=== PATIENT | female | born 1950 | race Caucasian/White ===

== ENCOUNTER → 2024-02-28 07:20 | Outpatient (REF) | payer OTHER, SELFPAY | LOC: HWRAD 07:20 | PROVIDERS: ATTENDING PHYSICIAN Internal Medicine Hematology & Oncology; FAMILY PHYSICIAN Internal Medicine | DX: C48.2 Malignant neoplasm of peritoneum, unspecified (principal) | CPT/HCPCS: 71260; 74177; Q9967 ==

== ENCOUNTER 2024-03-21 13:55 | Emergency (ER) | payer OTHER, SELFPAY ==
[2024-03-21] VITALS (7 sets, daily range): BP systolic 104–136; BP diastolic 54–73; BMI 23.8
--- NOTE | 2024-03-21 15:17 | ED.GENMED ---
History of Present Illness
General
Chief Complaint: Breathing Problem
Source: patient
Time Seen by Provider: 03/21/24 14:54
Travel History
Have you had any contact with someone who has COVID-19?: No
Do you have any symptoms of coronavirus? Fever > 100 degrees, chills, cough, shortness of breath, sore throat, loss of taste or smell, muscle aches, or headache?: No
History of Present Illness
History of Present Illness:
3-year-old female presents to the emergency room complaining of shortness of breath particular with exertion, weakness, cough. Patient has history of primary peritoneal carcinoma. She has had debulking surgery and several rounds of chemo. Over
the past several weeks has been developing some abdominal distention. Over the past several days she has been experiencing a cough and shortness of breath. No fever. She took a COVID test today was negative. Patient was sent by her oncologist
for a ultrasound today. While going to ultrasound the patient's daughter noted that she was short of breath and coughing a lot and felt uncomfortable taking her home.
Past History
Past History
ED Past Medical History: HTN and Hypercholesterolemia
Social History
Tobacco: Non-smoker
Alcohol: Occasional
Drug: None
Personal:
Living: with family
Phy Exam
Physical Exam
Physical Exam:
General: Awake, Alert, Oriented X3. Appears quite thin, chronically ill
Vitals: Mildly tachycardic, afebrile
Head: Atraumatic
Eyes: Pupils equal, EOMI
Throat: Airway intact, no exudates
Neck: Trachea midline
Lungs: Clear and equal b/l
Heart: Regular rate, no murmurs
Abd: Soft, significant distention but no tenderness, No pulsatile mass
Neuro: Nonfocal
Skin: Warm, dry, no rash
Extremities: pulses equal b/l, no edema
Scores
Heart Failure Risk
Heart Failure Risk Score: Not Applicable
Course
Orders/Labs/Results
Orders:
Orders
03/21/24 15:18
0.9% Sodium Chloride 500 ml [Nss] 500 ml IV BOLUS
03/21/24 15:22
Complete Blood Count/With Diff Urgent
Comprehensive Metabolic Panel Urgent
Magnesium Urgent
Phos [Phosphorus] Urgent
03/21/24 15:24
Consult Interventional Radiology [IRAD CONSULT] Urgent
Consulting Provider: Brenden Goetz
Was physician already notified: Yes
Reason for Consult/Procedure: ascitis
Acknowledgement that appropriate orders are entered: Yes
03/21/24 15:49
Ondansetron Injectable [Zofran] 4 mg .ROUTE .STK-MED ONE
03/21/24 15:51
Ondansetron Injectable [Zofran] 4 mg IV NOW STA
03/21/24 16:56
Body Fluid Cell Count Urgent
What is the Body Fluid: ascites
Date Specimen was Collected: 03/21/24
Time Specimen was Collected: 16:50
Body Fluid Glucose Urgent
Fluid Source: Peritoneal (Ascites)
Date Specimen was Collected: 03/21/24
Time Specimen was Collected: 16:50
Body Fluid Protein Urgent
Fluid Source: Peritoneal (Ascites)
Date Specimen was Collected: 03/21/24
Time Specimen was Collected: 16:50
Fluid Culture with Gram Stain Urgent
MADDIE Source: Peritoneal Fluid
Specimen Description:
Date Specimen was Collected: 03/21/24
Time Specimen was Collected: 16:50
03/21/24 19:19
CefTRIAXone [Rocephin] 1,000 mg IV NOW STA
03/21/24 19:34
Heparin Pf [Heparin Lock Flush] 500 unit .ROUTE .STK-MED ONE
Abnormal Lab Results
03/21/24
15:22
WBC 12.4 H 10^3/uL
(4.8-10.8)
RBC 3.27 L 10^6/uL
(4.20-5.40)
Hgb 10.6 L g/dL
(12.0-16.0)
Hct 33.0 L %
(37.0-47.0)
MCV 100.9 H fL
(81.0-99.0)
MCH 32.4 H pg
(27.0-31.0)
MCHC 32.1 L g/dL
(33.0-37.0)
Absolute Neuts (auto) 10.8 H 10^3/uL
(1.4-6.5)
Absolute Lymphs (auto) 0.8 L 10^3/uL
(1.2-3.4)
Absolute Monos (auto) 0.7 H 10^3/uL
(0.1-0.6)
Neutrophils % 87.1 H %
(42.2-75.2)
Lymphocytes % 6.5 L %
(20.5-51.1)
Chloride 110 H mmol/L
(98-107)
BUN 20 H mg/dl
(7-17)
Glucose 127 H mg/dl
(70-99)
Total Protein 5.9 L g/dl
(6.3-8.2)
Albumin 3.3 L g/dl
(3.5-5.0)
03/21/24 15:22
03/21/24 15:22
Vital Signs
Initial and Last Documented VS:
Initial Vital Signs
Temp Pulse Resp BP Pulse Ox
98.4 F 107 22 136/72 98
03/21/24 13:56 03/21/24 13:56 03/21/24 13:56 03/21/24 13:56 03/21/24 13:56
Last Documented Vital Signs
Temp Pulse Resp BP Pulse Ox
99 F 97 19 132/63 92
03/21/24 19:34 03/21/24 18:15 03/21/24 17:07 03/21/24 19:34 03/21/24 18:15
MDM/Problems Addressed
Differential Diagnosis Includes:
Ascites, SBP, anemia, renal failure
MDM/Problems Addressed:
Ultrasound from this morning proved there was significant ascites. Interventional radiology was able to perform a paracentesis and removed 2 L of fluid. She felt much better after the procedure. Total white count of 625 but only 8% PMNs so that
is less than 250 to be concerned about SBP. Patient stable for discharge home
*Radiology
Radiology exam reviewed: radiology read reviewed
*Pulse Oximetry
Patient hypoxic: no
*Critical Care Note
Total Time (30-74mins, 75-104mins- exclusive of procedures): Not Applicable
ED Attending Note
-
Portions of this chart may have been created with voice recognition software.� Occasional wrong word or��sound alike� substitutions may have occurred due to the inherent limitations of voice recognition software.
Discharge Plan
Departure
Patient Disposition: Home (Routine Discharge)
Date of Disposition: 03/21/24
Time of Disposition: 19:29
Patient with high blood pressure during this ER visit?: Yes
Condition: Good
Discharge Problem:
Ascites, S/P abdominal paracentesis
Instructions: Fluid in the belly (ascites), Abdominal Paracentesis (DC)
Prescriptions:
No Action
nateglinide 120 MG tablet
120 mg PO TID
levothyroxine 100 MCG tablet
100 mcg PO DAILY
calcium carbonate 600 MG tablet
1,200 mg PO DAILY
cholecalciferol (vitamin D3) [Vitamin D3] 1,000 UNIT capsule
1,000 unit PO DAILY
amlodipine 5 mg Tablet
5 mg PO DAILY
losartan 50 mg tablet
100 mg PO DAILY
metformin 500 mg tablet
1,000 mg PO BID@0800,1700
prochlorperazine maleate 10 mg tablet
10 mg PO Q6H PRN (Reason: nausea)
ondansetron 8 mg tablet,disintegrating
8 mg PO Q8H PRN (Reason: nausea/vomiting)
lidocaine-prilocaine 2.5-2.5 % Cream
1 applic TOPICAL DAILY PRN (Reason: prior to chemo access)
lorazepam 0.5 mg tablet
0.5 mg PO Q8H PRN (Reason: nausea/anxiety)
Patient Comments:
03/21/2024: last filled 03/20/24, 30 tabs for 10 days
metoclopramide HCl 5 mg tablet
5 mg PO Q12H PRN (Reason: nausea)
fluticasone propionate 50 mcg/actuation spray,suspension
1 spray INTRANASAL DAILY
rosuvastatin 10 mg tablet
10 mg PO DAILY
Referrals:
Catina Romano DO [Family Provider] -
Interventions
Interventions:
*Risk Screen - Suicide Last Done: 03/21/24 13:56
*General Assessment Last Done: 03/21/24 13:56
*Neglect/Abuse Screening Last Done: 03/21/24 13:56
ED- Fall Risk Assessment Last Done: 03/21/24 15:01
*ED COVID-19 Vaccine History Last Done: 03/21/24 13:56
*Nursing Disposition Last Done: 03/21/24 20:00
ED- Cardiac Assessment Last Done: 03/21/24 15:01
ED- Pulmonary Assessment Last Done: 03/21/24 15:01
Discharge Date and Time
Discharge Date/Time: 03/21/24 20:03
Print Language: IRISH
[2024-03-21] MEDS: NSS 500 IV (15:33)
[2024-03-21 15:39] LABS: % Basophils 0.4 % (0-2); % Eosinophils 0.5 % (0-6); % Immature Granulocytes 0.2 % (0-0.5); % Lymphocytes 6.5 % (20.5-51.1); % Monocytes 5.3 % (1.7-9.3); % Neutrophils 87.1 % (42.2-75.2); Absolute Basophils 0.1 10^3/uL (0-0.2); Absolute Eosinophils 0.1 10^3/uL (0-0.7); Absolute Lymphocytes 0.8 10^3/uL (1.2-3.4); Absolute Monocytes 0.7 10^3/uL (0.1-0.6); Absolute Neutrophils 10.8 10^3/uL (1.4-6.5); Hemoglobin 10.6 g/dL (12.0-16.0); Mean Corp Hgb Conc. 32.1 g/dL (33.0-37.0); Mean Corpuscular Hgb 32.4 pg (27.0-31.0); Mean Corpuscular Volume 100.9 fL (81.0-99.0); Mean Platelet Volume 8.3 fL (7.4-10.4); Nucleated Red Blood Cells % 0 %; Platelet Count 306 10^3/uL (130-400); Red Blood Cell Count 3.27 10^6/uL (4.20-5.40); Red Cell Dist. Width 12.9 % (11.5-14.5); White Blood Cell Count 12.4 10^3/uL (4.8-10.8)
[2024-03-21] MEDS: ZOFRAN 4 MG IV (15:51)
[2024-03-21 15:59] LABS: ALT (SGPT) 11 U/L (0-35); AST (SGOT) 22 U/L (14-36); Albumin 3.3 g/dl (3.5-5.0); Alkaline Phosphatase 62 U/L (38-126); Blood Urea Nitrogen 20 mg/dl (7-17); Calcium 8.6 mg/dl (8.4-10.2); Carbon Dioxide 23 mmol/L (22-30); Chloride 110 mmol/L (98-107); Estimated Creatinine Clearance 58 ml/min; Glucose 127 mg/dl (70-99); Magnesium 1.6 mg/dl (1.6-2.3); Phosphorus 3.7 mg/dl (2.5-4.5); Potassium 4.4 mmol/L (3.5-5.1); Sodium 138 mmol/L (135-145); Total Bilirubin 0.5 mg/dl (0.2-1.3); Total Protein 5.9 g/dl (6.3-8.2); eGFR > 60.00
[2024-03-21 17:08] LABS: Body Fluid Mononuclear 91.9 %; Body Fluid Polymorphonuclear 8.1 %; Body Fluid WBC 625 /CUMM
[2024-03-21 17:09] LABS: Body Fluid Second Tech EYM
[2024-03-21 17:22] LABS: Body Fluid Glucose 119 mg/dl; Body Fluid Protein 4.2 g/dl
== END 2024-03-21 20:03 | disposition home or self-care (01) ==
LOC: EMR 13:55
PROVIDERS: CONSULT PHYSICIAN Radiology Vascular & Interventional Radiology; EMERGENCY PHYSICIAN Emergency Medicine; FAMILY PHYSICIAN Internal Medicine
DX: R18.8 Other ascites (principal); I10 Essential (primary) hypertension
CPT/HCPCS: 99285; 96374; 49083; 76705; 80053; 82945; 83735; 84100; 84157; 85025; 87015; 87070; 87205; 89051

== ENCOUNTER 2024-03-22 21:55 | Observation (INO) | payer OTHER, SELFPAY ==
[2024-03-22 16:17] VITALS: BP 93/71
--- NOTE | 2024-03-22 17:26 | ED.GENMED ---
History of Present Illness
General
Chief Complaint: Fever
Source: patient
Exam Limitations: none
Time Seen by Provider: 03/22/24 17:26
Nursing documentation reviewed up to this point in time: agreed with
Travel History
Have you had any contact with someone who has COVID-19?: No
Do you have any symptoms of coronavirus? Fever > 100 degrees, chills, cough, shortness of breath, sore throat, loss of taste or smell, muscle aches, or headache?: No
History of Present Illness
History of Present Illness:
73-year-old female with history of HTN, HLD, hypothyroid, NIDDM, ovarian cancer with hysterectomy and debulking, now primary peritoneal cancer presents due to fever. She was evaluated here yesterday for shortness of breath and weakness and had 2 L
of fluid removed via paracentesis by interventional radiology. She presents today with significant fatigue, weakness, poor appetite and fever of 100.6. Her daughter called [facility] Dr. Lyons who instructed them to come here.
She is to start new chemotherapy next week.
Patient denies headache, chest pain, trouble breathing, abdominal pain, denies UTI symptoms, denies nausea, not moving bowels but she is not eating.
Past History
Past History
ED Past Medical History: Cancer (Primary peritoneal cancer.), HTN, Hypercholesterolemia, NIDDM and Hypothyroidism
ED Past Surgical History: Gynecological (Hysterectomy with debulking, tubal ligation) and Tonsilectomy
Social History
Tobacco: Non-smoker
Alcohol: Occasional
Drug: None
Personal:
Living: with family
Review of Systems
Review of Systems
Allergies reviewed?: Yes
All Other Systems: ROS reviewed and negative except as documented in HPI and ROS
Constitutional: Reports fever and fatigue
EENT: Denies sore throat
Respiratory: Denies trouble breathing
Cardiac: Denies chest pain or syncope
ABD/GI: Reports nausea and anorexia; Denies abdominal pain, vomiting, diarrhea, bloody stools or black stools
: Denies dysuria, difficulty voiding or urgency
Musculoskeletal: Denies edema
Skin: Reports no symptoms
Neurological: Reports no symptoms
Phy Exam
Physical Exam
Physical Exam:
GENERAL: No acute distress. A&Ox3. Frail
CONSTITUTIONAL: Temp 100.6
EYES: PERRL, conjunctivae normal
ENMT: dry mucus membranes, Pharynx nl
RESPIRATORY: Regular respirations, nonlabored, lungs clear.
CARDIOVASCULAR: Regular rate and rhythm, no murmurs, no rubs.
GI: Soft, nontender, normal BS
MUSCULOSKELETAL: Moves with ease. Well perfused.
SKIN: Warm, dry, pale
PSYCH: Normal mood and affect. Well kept, interactive and appropriate
NEUROLOGIC: Awake, alert and oriented. No focal neurological deficits
Course
Orders/Labs/Results
Orders:
Orders
03/22/24 Dinner
2200 calorie (18 carb) Diabetic
At Your Request: Full Participation
Does patient need a safe tray?: No
03/22/24 18:06
Urinalysis Reflex To Culture Urgent
Date Specimen was Collected: 03/22/24
Time Specimen was Collected: 17:49
03/22/24 18:25
Complete Blood Count/With Diff Urgent
Comprehensive Metabolic Panel Urgent
Ferritin Urgent
Comment: ADD ON
Folate Urgent
Comment: ADD ON
Iron Urgent
Lactic Acid Q4H
Comment: CANCEL 2nd LACTIC ACID IF 1st LACTIC ACID IS LESS THAN 2
Total Iron Binding Urgent
Vitamin B12 Urgent
Comment: ADD ON
03/22/24 18:29
Acetaminophen [Tylenol] 650 mg PO NOW STA
03/22/24 18:30
0.9% Sodium Chloride 250 ml [Nss] 250 ml IV BOLUS
03/22/24 18:36
Blood Culture Urgent
MADDIE Source: Blood/Venous
Specimen Description:
03/22/24 18:40
Blood Culture Urgent
MADDIE Source: Blood/Venous
Specimen Description:
03/22/24 19:40
CR Chest - 2 Views Urgent
Comment:
Reason For Exam: cough fever.
03/22/24 20:42
COVID-19 Antigen Urgent
Source: Nasal Swab
Influenza A+B Rapid Molecular Urgent
MADDIE Source: Nasal Swab
Specimen Description:
03/22/24 20:58
Add On- LAB Routine
Tests Added?: iron, ferritin, tibc, folate, vit b12
03/22/24 21:05
Admit/Transfer Patient As Directed
Co-Sign Provider:
Level of Care: Observation services
Assign to:: Medical/Surgical
Physician / Group: Kleber
Diagnosis: Fever
03/22/24 21:06
Code Status As Directed
Resuscitation Status: Full Code
03/22/24 22:19
Acetaminophen [Tylenol] 650 mg PO Q4HPRN PRN
Dextrose 50%-Water [Dextrose 50% Syringe] 12.5 grams IV [id number] PRN
Glucagon [GlucaGen] 1 mg IM PRN PRN
Lorazepam [Ativan] 0.5 mg PO Q8HPRN PRN
03/22/24 22:19
Activity As Directed
Activity Level: Out of Bed-Early Mobility
With Assistance
Bedside Glucose Monitoring As Directed
Frequency: AC&HS
Additional Instructions:: Change to q6h if pt on TPN, tube feeding or not eating
I&O [Intake/ Output] As Directed
Frequency: q12h
Pneumatic Compression Sleeves As Directed
Type: Knee high
Vital Signs As Directed
Frequency: Per unit guidelines
Weight As Directed
Frequency: Daily
DX Deep Vein Thrombosis Video Routine
03/23/24 06:00
Basic Metabolic Panel IN AM
Complete Blood Count/No Diff IN AM
Glycohemoglobin (HgbA1c) IN AM
Levothyroxine [Synthroid] 100 mcg PO DAILY @ 0600
03/23/24 07:30
Insulin Aspart Corrective Low [Novolog Flexpen-Low Resistance] See Protocol SC AC
03/23/24 08:00
Amlodipine [Norvasc] 5 mg PO DAILY
Calcium Carbonate [Oscal Young 500] 1,000 mg PO DAILY
Cholecalciferol (Vitamin D3) [VITAMIN D3 (cholecalciferol)] 25 mcg PO DAILY
Guaifenesin [Mucinex] 600 mg PO Q12
Losartan [Cozaar] 100 mg PO DAILY
METFORMIN HCl [Glucophage] 1,000 mg PO BID@0800,1700
Rosuvastatin Calcium [Crestor] 10 mg PO DAILY
03/23/24 18:00
Enoxaparin Sodium [Lovenox] 40 mg SC QPM
Abnormal Lab Results
03/22/24
18:25
RBC 3.04 L 10^6/uL
(4.20-5.40)
Hgb 9.9 L g/dL
(12.0-16.0)
Hct 29.8 L %
(37.0-47.0)
MCH 32.6 H pg
(27.0-31.0)
Absolute Lymphs (auto) 1.0 L 10^3/uL
(1.2-3.4)
Absolute Monos (auto) 0.8 H 10^3/uL
(0.1-0.6)
Lymphocytes % 13.8 L %
(20.5-51.1)
Monocytes % 11.8 H %
(1.7-9.3)
Chloride 110 H mmol/L
(98-107)
BUN 32 H mg/dl
(7-17)
Calcium 7.8 L mg/dl
(8.4-10.2)
Iron 28 L ug/dl
(37-170)
TIBC 229 L ug/dl
(265-497)
% Saturation 12 L %
(20-50)
Total Protein 5.4 L g/dl
(6.3-8.2)
Albumin 2.9 L g/dl
(3.5-5.0)
03/22/24 18:25
03/22/24 18:25
Vital Signs
Initial and Last Documented VS:
Initial Vital Signs
Temp Pulse Resp BP Pulse Ox
99.2 F 96 20 93/71 96
03/22/24 16:17 03/22/24 16:17 03/22/24 16:17 03/22/24 16:17 03/22/24 16:17
Last Documented Vital Signs
Temp Pulse Resp BP Pulse Ox
98.2 F 91 24 121/70 98
03/22/24 22:20 03/22/24 22:20 03/22/24 22:20 03/22/24 22:20 03/22/24 22:20
MDM/Problems Addressed
Differential Diagnosis Includes:
dehydration, anemia, bacteremia
MDM/Problems Addressed:
73-year-old female with history of HTN, HLD, hypothyroid, NIDDM, ovarian cancer with hysterectomy and debulking, now primary peritoneal cancer presents due to fever. She was evaluated here yesterday for shortness of breath and weakness and had 2 L
of fluid removed via paracentesis by interventional radiology. She presents today with significant fatigue, weakness, poor appetite and fever of 100.6. Her daughter called [facility] Dr. Lyons who instructed them to come here.
She is to start new chemotherapy next week.
Patient denies headache, chest pain, trouble breathing, abdominal pain, denies UTI symptoms, denies nausea, not moving bowels but she is not eating.
Temperature 100.6 for this examiner.
Although blood cx drawn yesterday, fever is new so will repeat
Pt has a chronic intermittent cough, it has exacerbated recently and feels 'a little different' than her usual cough.
CBC hemoglobin 9.9, slightly lower than it was yesterday.
CMP: BUN 32, IV fluids infusing for acute dehydration
UA negative
8:13 PM
This is a 73-year-old female with primary peritoneal cancer with a fever, anorexia, weakness, acute dehydration,
Blood culture pending
CXR pending
Hospitalist notified
Chronic conditions affecting care: HTN and Cancer (Primary peritoneal cancer)
*Critical Care Note
Total Time (30-74mins, 75-104mins- exclusive of procedures): Not Applicable
Patient Management
Social determinants of health affecting care: Strong social support
ED Attending Note
-
Portions of this chart may have been created with voice recognition software.� Occasional wrong word or��sound alike� substitutions may have occurred due to the inherent limitations of voice recognition software.
Discharge Plan
Departure
Patient Disposition: Admit
Date of Disposition: 03/22/24
Time of Disposition: 20:17
Presentation/result/management discussed w/ accepting MD/DO: Hospitalist
Condition: Fair
Discharge Problem:
Acute dehydration, Peritoneal carcinoma, Fever
Interventions
Interventions:
*Risk Screen - Suicide Last Done: 03/22/24 18:19
*General Assessment Last Done: 03/22/24 18:19
*Neglect/Abuse Screening Last Done: 03/22/24 18:19
ED- Fall Risk Assessment Last Done: 03/22/24 18:22
*ED COVID-19 Vaccine History Last Done: 03/22/24 16:17
*Nursing Disposition Last Done: 03/22/24 22:21
ED- Neurological Assessment Last Done: 03/22/24 18:22
ED-Skin Assessment Last Done: 03/22/24 18:22
Discharge Date and Time
Discharge Date/Time: 03/22/24 22:22
[2024-03-22 18:01] VITALS: BMI 21.9
[2024-03-22 18:18] LABS: Urine Albumin Negative (Neg - Trace); Urine Bilirubin Negative (Negative); Urine Character Clear (Clear); Urine Color Yellow; Urine Glucose Negative (Negative); Urine Ketone Negative (Negative); Urine Leukocyte Negative (Negative); Urine Nitrite Negative (Negative); Urine Occult Blood Negative (Negative); Urine Specific Gravity 1.015 (<1.030); Urine Urobilinogen Negative (Neg - 1+)
[2024-03-22 18:33] LABS: % Basophils 0.6 % (0-2); % Eosinophils 1.6 % (0-6); % Immature Granulocytes 0.3 % (0-0.5); % Lymphocytes 13.8 % (20.5-51.1); % Monocytes 11.8 % (1.7-9.3); % Neutrophils 71.9 % (42.2-75.2); Absolute Eosinophils 0.1 10^3/uL (0-0.7); Absolute Monocytes 0.8 10^3/uL (0.1-0.6); Absolute Neutrophils 5.1 10^3/uL (1.4-6.5); Hematocrit 29.8 % (37.0-47.0); Hemoglobin 9.9 g/dL (12.0-16.0); Mean Corp Hgb Conc. 33.2 g/dL (33.0-37.0); Mean Corpuscular Hgb 32.6 pg (27.0-31.0); Mean Platelet Volume 8.1 fL (7.4-10.4); Nucleated Red Blood Cells % 0 %; Platelet Count 242 10^3/uL (130-400); Red Blood Cell Count 3.04 10^6/uL (4.20-5.40)
[2024-03-22 18:42] VITALS: BP 124/59
[2024-03-22 18:46] LABS: Lactic Acid 0.7 mmol/L (0.7-2.0)
[2024-03-22 18:57] LABS: ALT (SGPT) 14 U/L (0-35); AST (SGOT) 27 U/L (14-36); Albumin 2.9 g/dl (3.5-5.0); Alkaline Phosphatase 62 U/L (38-126); Blood Urea Nitrogen 32 mg/dl (7-17); Calcium 7.8 mg/dl (8.4-10.2); Carbon Dioxide 25 mmol/L (22-30); Chloride 110 mmol/L (98-107); Estimated Creatinine Clearance 46 ml/min; Glucose 87 mg/dl (70-99); Potassium 4.6 mmol/L (3.5-5.1); Sodium 135 mmol/L (135-145); Total Bilirubin 0.2 mg/dl (0.2-1.3); Total Protein 5.4 g/dl (6.3-8.2); eGFR > 60.00
[2024-03-22 19:00] VITALS: BP 123/55
[2024-03-22] MEDS: TYLENOL 650 MG PO (19:06)
[2024-03-22] MEDS: NSS 250 IV (19:11)
[2024-03-22 20:00] VITALS: BP 117/57
[2024-03-22 21:09] LABS: COVID-19 Antigen Negative (Negative)
--- NOTE | 2024-03-22 21:11 | HPS.HSE ---
Family Physician
-
Family Physician: Catina Romano
Chief Complaint
-
Fever
History of Present Illness
Patient is a 73 y/o female with a past medical history of peritoneal cancer (status post debulking surgery), hypertension, hyperlipidemia, hypothyroidism, and diabetes mellitus who presents for fever that began tonight. She was seen in the emergency
department last night for shortness of breath, weakness, cough, and abdominal distention that had been developing for the past few weeks. She had a paracentesis yesterday at which time 2L of fluid was drained from her abdomen. At discharge, she was
instructed to come back if she developed a fever. Her highest temperature today was 100.6. Her daughter notes that she has not been eating lately due to chronic nausea. She denies current shortness of breath, abdominal pain, nausea, vomiting or
diarrhea.
Medical History
Past Medical History
Past Medical History: Reports Other
Additional Past Medical History:
Primary Peritoneal Cancer Stage IIIC
Diabetes Mellitus, Type II
Essential Hypertension
Hyperlipidemia
Hypothyroidism
Past Surgical History: Reports Other
Additional Past Surgical History:
Tonsillectomy
Rectal Fistula Surgery
Hysterectomy / Bilateral Salpingo-oophorectomy/ Debulking
Social History
Tobacco: Former Smoker (Quit in 1988)
Living: With Family
Family History
Family History: Not pertinent
Allergies / Home Medications
Allergies reflects when Allergies were last updated in [facility].
Home Medications with original date entered in [facility]
Allergy/Medication List:
Allergies
Allergy/AdvReac Type Severity Reaction Status Date / Time
lisinopril Allergy Mild cough Verified 03/22/24 16:19
Home Medications
calcium carbonate 1,200 mg PO DAILY 11/03/21
cholecalciferol (vitamin D3) 25 mcg (1,000 unit) capsule (Vitamin D3) 1,000 unit PO DAILY 11/03/21
levothyroxine 100 mcg tablet 100 mcg PO DAILY 11/03/21
nateglinide 120 mg tablet 120 mg PO TID 11/03/21
amlodipine 5 mg tablet 5 mg PO DAILY 12/22/22
fluticasone propionate 50 mcg/actuation nasal spray,suspension 1 spray intranasal DAILY 03/21/24
lidocaine-prilocaine 2.5 %-2.5 % topical cream 1 applic topical DAILY PRN prior to chemo access 03/21/24
lorazepam 0.5 mg tablet 0.5 mg PO Q8H PRN nausea/anxiety 03/21/24
losartan 50 mg tablet 100 mg PO DAILY 03/21/24
metformin 500 mg tablet 1,000 mg PO BID@0800,1700 03/21/24
metoclopramide HCl 5 mg tablet 5 mg PO Q12H PRN nausea 03/21/24
ondansetron 8 mg disintegrating tablet 8 mg PO Q8H PRN nausea/vomiting 03/21/24
prochlorperazine maleate 10 mg tablet 10 mg PO Q6H PRN nausea 03/21/24
rosuvastatin 10 mg tablet 10 mg PO DAILY 03/21/24
Review of Systems
-
A 12 point ROS was completed and negative except as noted: Yes
Constitutional: Reports Fever
Respiratory: Reports Cough; Denies Trouble Breathing
Cardiac: Denies Chest Pain or Palpitations
Abdomen/GI: Denies Abdominal Pain, Nausea, Vomiting or Diarrhea
Physical Exam
Vital Signs
Vital Signs
Temp Pulse Resp BP Pulse Ox
98.2 F 91 21 117/57 96
03/22/24 20:16 03/22/24 20:45 03/22/24 20:45 03/22/24 20:00 03/22/24 20:45
Physical Exam
General: Comfortable and Conversant
HEENT: Anicteric and Moist mucous membranes
Respiratory: Clear, Non Labored Respirations and Decreased Breath Sounds (Right base)
Cardiac: S1/S2 and Regular Rhythm
GI: Soft, Non Tender and Non Distended
Rectal: Deferred by Provider
Musculoskeletal: No Clubbing, No Cyanosis and No Edema
Skin: Warm and Dry; No Rash
Neuro: Awake, Oriented and Nonfocal/grossly intact
Psych: Calm
Laboratory Results
-
03/22/24 18:25
03/22/24 18:
Laboratory Results
Lactic Acid Cancelled 03/22/24 22:00
Total Bilirubin 0.2 mg/dl (0.2-1.3) 03/22/24 18:25
AST 27 U/L (14-36) 03/22/24 18:25
ALT 14 U/L (0-35) 03/22/24 18:25
Alkaline Phosphatase 62 U/L (38-126) 03/22/24 18:25
Data Reviewed
-
Diagnostic Radiology: Image Personally Visualized and interpreted
Lab Data: Labs Reviewed by me
Impression/Plan
-
Fever
-COVID and Influenza negative
-CXR without evidence of pneumonia by my read
-Await blood cultures
-Ascites Culture from March 21 with No Growth
-Hold on antibiotics for now given lack of definitive source
Primary Peritoneal Cancer Stage IIIC
-Patient follows at [facility]
-Last chemotherapy February 13
-Set to start a new treatment regimen next week
Anemia, normocytic
-Check iron, ferritin, tibc, folate and vit b12
Diabetes Mellitus, Type II
-Hold nateglinide
-Continue metformin
-Monitor sugars and continue coverage insulin
Essential Hypertension
-Continue amlodipine and losartan
Hyperlipidemia
-Continue Crestor
Hypothyroidism
-Continue levothyroxine
DVT proph: Lovenox
Code Status: Full Code
--- NOTE | 2024-03-22 21:36 | W.PN.UPDATE ---
Update Note
Progress Note Update
Patient seen and examined independently and in conjunction with JORGE. Agree with findings on her h&p and discussed assessment and plan with her as documented in the h&p.
Briefly, patient is a 73-year-old female with a past medical history that is significant for hypertension, hypothyroidism and a history of primary peritoneal cancer status post debulking 1 year ago and chemotherapy. She presents to the emergency
department with fever malaise, nausea, decreased appetite, mild cough and mild shortness of breath. She was first seen yesterday and was found to have significant ascites likely resulting in mild to moderate respiratory compromise. She is status
post paracentesis with 2.4 L fluid removal. Fluid analysis is negative for SBP. Fluid culture is no growth to date. Status post paracentesis patient felt better however had a fever of 108.6 today and was sent to the ED by oncology.
In the ED she was nontoxic appearing, hemodynamically stable and in no acute distress. She did have a low-grade temp of 99-100.6. Oxygen saturation was normal on room air. The fever workup included flu COVID x-ray which were negative. UA was
also negative. Blood cultures were drawn. His sciatic fluid culture shows no growth to date.
Given patient is nontoxic in appearance, he is not neutropenic, and did not receive any chemotherapy recently at risk for acute decompensation from a immunocompromised infection is low. Patricia to hold off antibiotics pending 24 hours of blood
culture. Start antibiotics if blood cultures are positive or if patient spikes very high fevers. Will consult oncology. If persistent fever, non infectious sources such as tumor fever or thromboembolism can be considered. Management of her
chronic issues including hypertension, diabetes and hypothyroidism is as per the H&P.
[2024-03-22 21:43] LABS: Iron 28 ug/dl (37-170)
[2024-03-22 21:52] LABS: Percent Saturation 12 % (20-50); Total Iron Binding Capacity 229 ug/dl (265-497)
[2024-03-22 22:20] VITALS: BP 121/70; BMI 21.6
[2024-03-22 22:36] LABS: Glucose - Point of Care 115 mg/dl (70-99)
[2024-03-22 22:59] LABS: Vitamin B12 849 pg/ml (239-931)
[2024-03-22] MEDS: ROBITUSSIN 100 MG PO (23:05)
[2024-03-22] MEDS: ATIVAN 0.5 MG PO (23:05)
[2024-03-23 05:48] VITALS: BMI 21.2
[2024-03-23 06:00] VITALS: BMI 21.2
[2024-03-23] MEDS: ROBITUSSIN 100 MG PO ×4 (06:25→20:06)
[2024-03-23] MEDS: SYNTHROID 100 MCG PO (06:25)
[2024-03-23 07:10] LABS: Glucose - Point of Care 132 mg/dl (70-99)
[2024-03-23 07:35] VITALS: BP 113/74
[2024-03-23] MEDS: NORVASC 5 MG PO (07:55)
[2024-03-23] MEDS: MUCINEX 600 MG PO ×2 (07:55→20:06)
[2024-03-23] MEDS: COZAAR 100 MG PO (07:55)
[2024-03-23] MEDS: CRESTOR 10 MG PO (07:55)
[2024-03-23] MEDS: GLUCOPHAGE 1000 MG PO ×2 (07:55→17:02)
[2024-03-23] MEDS: VITAMIN D3 (cholecalciferol) 25 MCG PO (07:55)
[2024-03-23] MEDS: OSCAL CAL 500 1000 MG PO (07:56)
[2024-03-23 08:04] LABS: Hematocrit 32.5 % (37.0-47.0); Hemoglobin 10.4 g/dL (12.0-16.0); Mean Corpuscular Hgb 31.8 pg (27.0-31.0); Mean Corpuscular Volume 99.4 fL (81.0-99.0); Mean Platelet Volume 8.2 fL (7.4-10.4); Platelet Count 282 10^3/uL (130-400); Red Blood Cell Count 3.27 10^6/uL (4.20-5.40); Red Cell Dist. Width 12.7 % (11.5-14.5); White Blood Cell Count 5.6 10^3/uL (4.8-10.8)
[2024-03-23 08:44] LABS: Blood Urea Nitrogen 25 mg/dl (7-17); Calcium 7.4 mg/dl (8.4-10.2); Carbon Dioxide 22 mmol/L (22-30); Chloride 109 mmol/L (98-107); Estimated Creatinine Clearance 52 ml/min; Glucose 140 mg/dl (70-99); Potassium 4.5 mmol/L (3.5-5.1); Sodium 135 mmol/L (135-145); eGFR > 60.00
[2024-03-23] MEDS: COLACE 100 MG PO (08:59)
[2024-03-23] MEDS: REGLAN 5 MG PO ×2 (08:59→20:06)
[2024-03-23 09:31] LABS: Glycohemoglobin (HgbA1c) 6.4 % (4.0-5.6)
--- NOTE | 2024-03-23 10:46 | CM ---
Initial assessment completed with patient with daughter, son and judah-in-law present. Patient lives with her in a [place] community in a 3rd floor condo in elevator building, no stairs to enter building. [employer] patient was independent, drove and
did not work, no DME in home, does have a stationary built in shower bench and no in-home services. No psychiatric history. [facility]acy is [facility] in [place] and PCP is Dr. Romano. Anticipate no needs at discharge.
[2024-03-23 11:28] LABS: Glucose - Point of Care 140 mg/dl (70-99)
[2024-03-23 15:19] VITALS: BP 121/62
[2024-03-23 17:01] LABS: Glucose - Point of Care 138 mg/dl (70-99)
--- NOTE | 2024-03-23 18:23 | W.PN.HOSP.TC ---
Today's Communication/Plan
-
Abdominal X-ray to assess constipation
Follow cultures
Monitor vital signs
Assessment / Plan
Assessment / Plan
Physical Exam
General: Not in acute distress
HEENT: Normocephalic and Moist mucous membranes
Respiratory: Clear, Non Labored Respirations and Decreased Breath Sounds (Right base)
Cardiac: S1/S2 and Regular Rhythm
GI: Soft, Non Tender and Non Distended. Positive bowel sounds.
Musculoskeletal: No Cyanosis and No Edema
Skin: Warm and Dry
Neuro: Awake, Oriented and Nonfocal/grossly intact
Psych: Calm
Assessment/Plan
73-year-old female with a past medical history that is significant for hypertension, hypothyroidism and a history of primary peritoneal cancer status post debulking 1 year ago and chemotherapy. She presented to the emergency department with fever
malaise, nausea, decreased appetite, mild cough and mild shortness of breath. She was first seen on the day before presentation, and was found to have significant ascites likely resulting in mild to moderate respiratory compromise. She is status
post recent paracentesis with 2.4 L fluid removal. Fluid analysis was negative for SBP. Fluid culture is no growth to date. Status post paracentesis patient felt better however had a fever on the day of presentation and was sent to the ED by
oncology.
In the ED she was nontoxic appearing, hemodynamically stable and in no acute distress. She did have a low-grade temp of 99-100.6. Oxygen saturation was normal on room air. The fever workup included flu COVID x-ray which were negative. UA was
also negative. Blood cultures were drawn.
Given patient is nontoxic in appearance, she is not neutropenic, and did not receive any chemotherapy recently at risk for acute decompensation from a immunocompromised infection is low. Hold off antibiotics pending 24 hours of blood culture. Start
antibiotics if blood cultures are positive or if patient spikes very high fevers. If persistent fever, non infectious sources such as tumor fever or thromboembolism can be considered.
Fever
-COVID and Influenza negative
-CXR without evidence of pneumonia
-Await blood cultures
-Ascites Culture from March 21, 2024 with No Growth
-Hold on antibiotics for now given lack of definitive source
-Start antibiotics if blood cultures are positive or if patient spikes very high fevers.
-Consider oncology consultation
Primary Peritoneal Cancer Stage IIIC
-Patient follows at [facility]
-Last chemotherapy February 13
-Set to start a new treatment regimen next week
Concern for Constipation
-Check abdominal x-ray for stool burden
-If constipated, then:
1) Will try Senokot-S: 1 tablet BID and Miralax 17 grams PO daily, Dulcolax suppository
2) When patient starts having bowel movements but if she has cramps, can discontinue Senokot
3) Enema if needed
Anemia, normocytic
-Follow-up iron, ferritin, tibc
-Folate and vit b12 are okay
Diabetes Mellitus, Type II
-Hold nateglinide
-Continue metformin
-Monitor sugars and continue coverage insulin
Essential Hypertension
-Continue amlodipine and losartan
Hyperlipidemia
-Continue Crestor
Hypothyroidism
-Continue levothyroxine
DVT proph: Lovenox
Code Status: Full Code
Anticipated Discharge: 24 - 48 hours
Subjective/Interval History
-
Date of Service: March 23, 2024
Patient was seen and examined. She reported she maybe feels somewhat better, has not eaten much recently and has not had a bowel movement in quite some time now.
Objective Data
-
Labs:
Laboratory Results
03/23/24
07:40
WBC 5.6
Hgb 10.4 L
Hct 32.5 L
Plt Count 282
Sodium 135
Potassium 4.5
Chloride 109 H
Carbon Dioxide 22
BUN 25 H
Creatinine 0.7
Glucose 140 H
Calcium 7.4 L
Vital Signs:
Vital Signs
Temp Pulse Resp BP Pulse Ox
98.3 F 101 16 121/62 98
03/23/24 15:19 03/23/24 15:19 03/23/24 15:19 03/23/24 15:19 03/23/24 15:19
I&O
03/22/24 03/23/24 03/24/24
06:59 06:59 06:59
Intake Total 720 / 720
Balance 720 / 720
[2024-03-23] MEDS: ATIVAN 0.5 MG PO (20:06)
[2024-03-23 21:18] LABS: Glucose - Point of Care 124 mg/dl (70-99)
[2024-03-23 23:38] VITALS: BP 101/51
[2024-03-24 05:06] VITALS: BMI 21.3
[2024-03-24] MEDS: SYNTHROID 100 MCG PO (05:07)
[2024-03-24 05:26] LABS: % Basophils 0.5 % (0-2); % Eosinophils 2.3 % (0-6); % Immature Granulocytes 0.4 % (0-0.5); % Lymphocytes 27.9 % (20.5-51.1); % Monocytes 11.8 % (1.7-9.3); % Neutrophils 57.1 % (42.2-75.2); Absolute Eosinophils 0.1 10^3/uL (0-0.7); Absolute Lymphocytes 1.6 10^3/uL (1.2-3.4); Absolute Monocytes 0.7 10^3/uL (0.1-0.6); Absolute Neutrophils 3.2 10^3/uL (1.4-6.5); Hematocrit 32.6 % (37.0-47.0); Hemoglobin 10.6 g/dL (12.0-16.0); Mean Corp Hgb Conc. 32.5 g/dL (33.0-37.0); Mean Corpuscular Hgb 31.6 pg (27.0-31.0); Mean Corpuscular Volume 97.3 fL (81.0-99.0); Mean Platelet Volume 8.2 fL (7.4-10.4); Nucleated Red Blood Cells % 0 %; Platelet Count 268 10^3/uL (130-400); Red Blood Cell Count 3.35 10^6/uL (4.20-5.40); Red Cell Dist. Width 12.7 % (11.5-14.5); White Blood Cell Count 5.7 10^3/uL (4.8-10.8)
[2024-03-24 05:58] LABS: ALT (SGPT) 12 U/L (0-35); AST (SGOT) 26 U/L (14-36); Albumin 2.7 g/dl (3.5-5.0); Alkaline Phosphatase 50 U/L (38-126); Blood Urea Nitrogen 23 mg/dl (7-17); Calcium 7.8 mg/dl (8.4-10.2); Carbon Dioxide 22 mmol/L (22-30); Chloride 109 mmol/L (98-107); Estimated Creatinine Clearance 52 ml/min; Glucose 121 mg/dl (70-99); Magnesium 1.8 mg/dl (1.6-2.3); Potassium 4.5 mmol/L (3.5-5.1); Sodium 134 mmol/L (135-145); Total Bilirubin 0.3 mg/dl (0.2-1.3); Total Protein 5.2 g/dl (6.3-8.2); eGFR > 60.00
[2024-03-24 07:17] LABS: Glucose - Point of Care 135 mg/dl (70-99)
[2024-03-24 07:30] VITALS: BP 100/60
[2024-03-24] MEDS: CRESTOR 10 MG PO (07:38)
[2024-03-24] MEDS: MUCINEX 600 MG PO (07:38)
[2024-03-24] MEDS: ROBITUSSIN 100 MG PO (07:38)
[2024-03-24] MEDS: GLUCOPHAGE 1000 MG PO (07:38)
[2024-03-24] MEDS: VITAMIN D3 (cholecalciferol) 25 MCG PO (07:38)
[2024-03-24] MEDS: COZAAR 100 MG PO (07:39)
[2024-03-24] MEDS: OSCAL CAL 500 1000 MG PO (07:39)
[2024-03-24] MEDS: NORVASC 5 MG PO (07:40)
[2024-03-24] MEDS: REGLAN 5 MG PO (08:46)
[2024-03-24 11:55] LABS: Glucose - Point of Care 121 mg/dl (70-99)
--- NOTE | 2024-03-24 13:07 | W.PN.HOSP.TC ---
Today's Communication/Plan
-
Discharge today
Assessment / Plan
Assessment / Plan
Physical Exam
General: Not in acute distress
HEENT: Normocephalic and Moist mucous membranes
Respiratory: Clear, Non Labored Respirations and Decreased Breath Sounds (Right base)
Cardiac: S1/S2 and Regular Rhythm
GI: Soft, Non Tender and Non Distended. Positive bowel sounds.
Musculoskeletal: No Cyanosis and No Edema
Skin: Warm and Dry
Neuro: Awake, Oriented and Nonfocal/grossly intact
Psych: Calm
Assessment/Plan
73-year-old female with a past medical history that is significant for hypertension, hypothyroidism and a history of primary peritoneal cancer status post debulking 1 year ago and chemotherapy. She presented to the emergency department with fever
malaise, nausea, decreased appetite, mild cough and mild shortness of breath. She was first seen on the day before presentation, and was found to have significant ascites likely resulting in mild to moderate respiratory compromise. She is status
post recent paracentesis with 2.4 L fluid removal. Fluid analysis was negative for SBP. Fluid culture is no growth to date. Status post paracentesis patient felt better however had a fever on the day of presentation and was sent to the ED by
oncology.
In the ED she was nontoxic appearing, hemodynamically stable and in no acute distress. She did have a low-grade temp of 99-100.6. Oxygen saturation was normal on room air. The fever workup included flu COVID x-ray which were negative. UA was
also negative. Blood cultures were drawn.
Given patient is nontoxic in appearance, she is not neutropenic, and did not receive any chemotherapy recently at risk for acute decompensation from a immunocompromised infection is low. Hold off antibiotics pending 24 hours of blood culture. Start
antibiotics if blood cultures are positive or if patient spikes very high fevers. If persistent fever, non infectious sources such as tumor fever or thromboembolism can be considered.
Fever
-COVID and Influenza negative
-CXR without evidence of pneumonia
-Await blood cultures
-Ascites Culture from March 21, 2024 with No Growth
-Hold on antibiotics for now given lack of definitive source
-Start antibiotics if blood cultures are positive or if patient spikes very high fevers.
-Patient is aware of signs and symptoms to look out for and that she would have to return to the ER for such signs or symptoms.
Primary Peritoneal Cancer Stage IIIC
-Patient follows at [facility]
-Last chemotherapy February 13
-Set to start a new treatment regimen next week
Concern for Constipation
-Patient had a large bowel movement in the past 24 hours
Anemia, normocytic
-Follow-up iron study results with oncologist/customer assistance representative
-Folate and vit b12 are okay
Diabetes Mellitus, Type II
-Hold nateglinide
-Continue metformin
-Monitor sugars and continue coverage insulin
Essential Hypertension
-Continue amlodipine and losartan
Hyperlipidemia
-Continue Crestor
Hypothyroidism
-Continue levothyroxine
DVT proph: Lovenox
Code Status: Full Code
I spoke to patient and her in her room today. All questions and concerns were answered to satisfaction.
More than 30 minutes spent in discharge including
Final examination of the patient
Summarizing hospital stay
Instructions for continuing care to all relevant caregivers
Preparation of discharge records, prescriptions, and referral forms
Total time spent (in minutes): 40
Anticipated Discharge: Today
Subjective/Interval History
-
Date of Service: March 24, 2024
Patient was seen and examined. She denied any fever, abdominal pain or any other symptoms or complaints.
Objective Data
-
Labs:
Laboratory Results
03/24/24
05:10
WBC 5.7
Hgb 10.6 L
Hct 32.6 L
Plt Count 268
Sodium 134 L
Potassium 4.5
Chloride 109 H
Carbon Dioxide 22
BUN 23 H
Creatinine 0.7
Glucose 121 H
Calcium 7.8 L
Total Bilirubin 0.3
AST 26
ALT 12
Alkaline Phosphatase 50
Vital Signs:
Vital Signs
Temp Pulse Resp BP Pulse Ox
98.5 F 84 16 100/60 95
03/24/24 07:30 03/24/24 07:39 03/24/24 07:30 03/24/24 07:39 03/24/24 07:30
I&O
03/23/24 03/24/24 03/25/24
06:59 06:59 06:59
Intake Total 1180 / 1180
Balance 1180 / 1180
--- NOTE | 2024-03-24 13:24 | W.DS.TRANS ---
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
-
Discharge Instructions:
Discharge Diagnosis/Procedures Fever
Primary Peritoneal Cancer Stage IIIC
Concern for Constipation
Anemia, normocytic
Diabetes Mellitus, Type II
Essential Hypertension
Hyperlipidemia
Hypothyroidism
Diet Diabetic, Carb Controlled
Activity As tolerated
Instructions:
Stand-Alone Forms:
Changes to Home Medications: Yes
Discharge Medications:
DC Medications w/original date entered in [employer]
calcium carbonate 1,200 mg PO DAILY 11/03/21
cholecalciferol (vitamin D3) 25 mcg (1,000 unit) capsule (Vitamin D3) 1,000 unit PO DAILY 11/03/21
levothyroxine 100 mcg tablet 100 mcg PO DAILY 11/03/21
nateglinide 120 mg tablet 120 mg PO TID 11/03/21
amlodipine 5 mg tablet 5 mg PO DAILY 12/22/22
fluticasone propionate 50 mcg/actuation nasal spray,suspension 1 spray intranasal DAILY 03/21/24
lidocaine-prilocaine 2.5 %-2.5 % topical cream 1 applic topical DAILY PRN prior to chemo access 03/21/24
lorazepam 0.5 mg tablet 0.5 mg PO Q8H PRN nausea/anxiety 03/21/24
losartan 50 mg tablet 100 mg PO DAILY 03/21/24
metformin 500 mg tablet 1,000 mg PO BID@0800,1700 03/21/24
metoclopramide HCl 5 mg tablet 5 mg PO Q12H PRN nausea 03/21/24
ondansetron 8 mg disintegrating tablet 8 mg PO Q8H PRN nausea/vomiting 03/21/24
prochlorperazine maleate 10 mg tablet 10 mg PO Q6H PRN nausea 03/21/24
rosuvastatin 10 mg tablet 10 mg PO DAILY 03/21/24
docusate sodium 100 mg capsule 100 mg PO BIDPRN PRN Constipation #30 caps 03/24/24
guaifenesin 600 mg tablet, extended release 12 hr 600 mg PO Q12 #30 tabs 03/24/24
Home Medication Changes
Docusate and Guaifenesin are new medications.
Nateglinide (concern for potential low blood sugar), Ondansetron (QTc on EKG is advised to be checked at PCP office) and Prochlorperazine (QTc on EKG is advised to be checked at PCP office) are all on hold until primary care provider gives OK to
continue these medications.
Pending Results: Yes
Additional Pending Results:
Final results of peritoneal fluid cultures and blood cultures from hospitalization
Total time spent discharging patient (in min): 40
--- NOTE | 2024-03-24 13:51 | CM ---
Patient has been medically cleared for discharge to home with no additional skilled services. will transport home.
[2024-03-24 13:55] VITALS: BP 111/57
--- NOTE | 2024-03-27 01:26 | W.DCSUMMARY ---
Discharge Summary
Discharge Data
Date of Admission: 03/22/24
Date of Discharge: 03/24/24
Total time spent discharging patient (in min): 40
-
Pending Results: Yes
Additional Pending Results:
Final results of peritoneal fluid cultures and blood cultures from hospitalization
Hospital Course
73-year-old female with a past medical history significant for hypertension, hypothyroidism and a history of primary peritoneal cancer status post debulking 1 year ago and chemotherapy presented to the emergency department with fever malaise,
nausea, decreased appetite, mild cough and mild shortness of breath. She was first seen the day before and was found to have significant ascites likely resulting in mild to moderate respiratory compromise -- she did have a paracentesis with 2.4 L
fluid removal, and analysis of the fluid findings did not show Spontaneous Bacterial Peritonitis. Fluid culture showed no growth to date. Patient feel relatively well after her paracentesis, but then developed fever so was sent by oncology to the
emergency room.
In the emergency department, patient did have a low-grade temp of 99-100.6 F; she was non-toxic appearing, hemodynamically stable and in no acute distress. Oxygen saturation was normal on room air. The fever workup included flu, COVID and chest
x-ray which were negative. UA was also negative. Blood cultures were drawn.
Given patient was nontoxic in appearance, not neutropenic, and did not receive any chemotherapy recently, her risk for acute decompensation from a immunocompromised infection was determined to be low. Antibiotics were held and patient remained
stable without any additional fevers or infectious signs or symptoms. Patient was ambulating in her room fine, and she and her family (family was present in the patient's room) were advised by hospitalist that if she developed any new signs or
symptoms, she should immediately return to the emergency room.
Discharge Plan
-
Patient Disposition: Home (Routine Discharge)
Discharge Diagnosis/Procedures: Fever
Primary Peritoneal Cancer Stage IIIC
Concern for Constipation
Anemia, normocytic
Diabetes Mellitus, Type II
Essential Hypertension
Hyperlipidemia
Hypothyroidism
Condition: Good
Diet: Diabetic, Carb Controlled
Activity: As tolerated
Referrals:
Levi Lyons, DO [Active] - in one to two days
Catina Romano, DO [Family Provider] - in one to two days
Additional Discharge Medication Instructions: Docusate and Guaifenesin are new medications.
Nateglinide (concern for potential low blood sugar), Ondansetron (QTc on EKG is advised to be checked at PCP office) and Prochlorperazine (QTc on EKG is advised to be checked at PCP office) are all on hold until primary care provider gives OK to
continue these medications.
Prescriptions:
New
docusate sodium 100 mg Capsule
100 mg PO BIDPRN PRN (Reason: Constipation) Qty: 30 1RF
guaifenesin 600 mg Tablet Extended Release 12hr
600 mg PO Q12 Qty: 30 0RF
Continued
levothyroxine 100 MCG tablet
100 mcg PO DAILY
calcium carbonate 600 MG tablet
1,200 mg PO DAILY
cholecalciferol (vitamin D3) [Vitamin D3] 1,000 UNIT capsule
1,000 unit PO DAILY
amlodipine 5 mg Tablet
5 mg PO DAILY
losartan 50 mg tablet
100 mg PO DAILY
metformin 500 mg tablet
1,000 mg PO BID@0800,1700
lidocaine-prilocaine 2.5-2.5 % Cream
1 applic TOPICAL DAILY PRN (Reason: prior to chemo access)
lorazepam 0.5 mg tablet
0.5 mg PO Q8H PRN (Reason: nausea/anxiety)
Patient Comments:
03/21/2024: last filled 03/20/24, 30 tabs for 10 days
metoclopramide HCl 5 mg tablet
5 mg PO Q12H PRN (Reason: nausea)
fluticasone propionate 50 mcg/actuation spray,suspension
1 spray INTRANASAL DAILY
rosuvastatin 10 mg tablet
10 mg PO DAILY
Held
nateglinide 120 MG tablet
120 mg PO TID
Hold Instructions: Resume on 04/02/24. Check with your primary care physician by 03/25/24 regarding if and when you should resume this medication based on your blood sugar readings.
prochlorperazine maleate 10 mg tablet
10 mg PO Q6H PRN (Reason: nausea)
Hold Instructions: Resume on 04/02/24. Check with your primary care physician regarding when you can resume this medication (EKG on QTc would be a good idea to check first with primary care provider office).
ondansetron 8 mg tablet,disintegrating
8 mg PO Q8H PRN (Reason: nausea/vomiting)
Hold Instructions: Resume on 04/03/24. Check with your primary care physician regarding when you can resume this medication (EKG on QTc would be a good idea to check first with primary care provider office).
Discharge Orders:
Discharge Patient (As Directed); Ordered 03/24/24
Ordered By: Amador Palomino
Discharge Date and Time
Discharge Date/Time: 03/24/24 14:11
Print Language: UPPER SORBIAN
== END 2024-03-24 14:11 | disposition home or self-care (01) ==
LOC: 2 NORTH 21:55
PROVIDERS: Physician Assistant Medical; Registered Nurse; ADMITTING PHYSICIAN Internal Medicine; ATTENDING PHYSICIAN Hospitalist; EMERGENCY PHYSICIAN Emergency Medicine; FAMILY PHYSICIAN Internal Medicine
DX: R50.9 Fever, unspecified (principal); E11.9 Type 2 diabetes mellitus without complications; E78.00 Pure hypercholesterolemia, unspecified; I10 Essential (primary) hypertension; C48.2 Malignant neoplasm of peritoneum, unspecified; E86.0 Dehydration; E03.9 Hypothyroidism, unspecified; D64.9 Anemia, unspecified; R18.8 Other ascites; Z11.52 Encounter for screening for COVID-19; Z79.84 Long term (current) use of oral hypoglycemic drugs; Z79.899 Other long term (current) drug therapy; Z85.43 Personal history of malignant neoplasm of ovary; Z90.710 Acquired absence of both cervix and uterus; Z87.891 Personal history of nicotine dependence
CPT/HCPCS: 71046; 80048; 80053; 81003; 82607; 82728; 82746; 82962; 83036; 83540; 83550; 83605; 83735; 85025; 85027; 87040; 87502; 87811; 96360; 99285; G0378

== ENCOUNTER 2024-04-01 18:53 | Inpatient (IN) | payer OTHER, SELFPAY ==
[2024-04-01] VITALS (9 sets, daily range): BP systolic 92–120; BP diastolic 45–65; BMI 22.7
--- NOTE | 2024-04-01 12:38 | ED.GENMED ---
History of Present Illness
General
Chief Complaint: Abdominal Symptoms
Source: patient
Exam Limitations: none
Time Seen by Provider: 04/01/24 12:29
Travel History
Have you had any contact with someone who has COVID-19?: No
Do you have any symptoms of coronavirus? Fever > 100 degrees, chills, cough, shortness of breath, sore throat, loss of taste or smell, muscle aches, or headache?: No
History of Present Illness
History of Present Illness:
See MDM
Past History
Past History
ED Past Medical History: Cancer (Primary peritoneal cancer.), HTN, Hypercholesterolemia, NIDDM and Hypothyroidism
ED Past Surgical History: Gynecological (Hysterectomy with debulking, tubal ligation) and Tonsilectomy
Social History
Tobacco: Non-smoker
Alcohol: Occasional
Drug: None
Personal:
Living: with family
Phy Exam
Physical Exam
Physical Exam:
See MDM
Course
Orders/Labs/Results
Orders:
Orders
04/01/24 12:37
0.9% Sodium Chloride 1000 ml [Nss] 1,000 ml IV BOLUS
Promethazine [Phenergan] 25 mg 0.9% Sodium Chloride 50 ml [Nss] 50 ml IV NOW
04/01/24 12:38
CT Abd/pelvis W Iv Cont Urgent
Comment: Peritoneal cancer, possible SBO
Reason For Exam: Abd distention, decreased PO intake
04/01/24 12:42
CMP [Comprehensive Metabolic Panel] Urgent
Complete Blood Count/With Diff Urgent
Lipase Urgent
04/01/24 16:32
Lorazepam [Ativan] 1 mg IV NOW STA
04/01/24 16:35
Consult Interventional Radiology [IRAD CONSULT] Routine
Consulting Provider: Brenden Goetz
Was physician already notified: Yes
Reason for Consult/Procedure: Paracentesis
Acknowledgement that appropriate orders are entered: Yes
Abnormal Lab Results
04/01/24
12:42
WBC 61.9 H* 10^3/uL
(4.8-10.8)
RBC 3.35 L 10^6/uL
(4.20-5.40)
Hgb 10.6 L g/dL
(12.0-16.0)
Hct 32.1 L %
(37.0-47.0)
MCH 31.6 H pg
(27.0-31.0)
Abs Immat Gran (auto) 4.2 H 10^3/uL
(0-0.05)
Absolute Neuts (auto) 53.2 H 10^3/uL
(1.4-6.5)
Absolute Monos (auto) 3.0 H 10^3/uL
(0.1-0.6)
Immature Gran % 6.8 H %
(0-0.5)
Neutrophils % 85.9 H %
(42.2-75.2)
Lymphocytes % 2.5 L %
(20.5-51.1)
Sodium 133 L mmol/L
(135-145)
Chloride 109 H mmol/L
(98-107)
Carbon Dioxide 19 L mmol/L
(22-30)
BUN 28 H mg/dl
(7-17)
Creatinine 1.1 H mg/dL
(0.6-1.0)
Glucose 132 H mg/dl
(70-99)
Calcium 7.8 L mg/dl
(8.4-10.2)
Alkaline Phosphatase 215 H U/L
(38-126)
Total Protein 5.3 L g/dl
(6.3-8.2)
Albumin 2.8 L g/dl
(3.5-5.0)
05/06/24 12:42
04/01/24 12:42
Vital Signs
Initial and Last Documented VS:
Initial Vital Signs
Temp Pulse Resp BP Pulse Ox
98.7 F 99 16 114/65 98
04/01/24 11:47 04/01/24 11:47 04/01/24 11:47 04/01/24 11:47 04/01/24 11:47
Last Documented Vital Signs
Temp Pulse Resp BP Pulse Ox
98.7 F 95 22 107/58 100
04/01/24 11:47 04/01/24 15:00 04/01/24 15:00 04/01/24 15:00 04/01/24 14:00
MDM/Problems Addressed
Differential Diagnosis Includes:
HPI and MDM Narrative:
73-year-old female presenting with generalized abdominal distention and nausea. Patient is unsure if this is accumulation of ascites or possibly small bowel obstruction. Patient has a history of active peritoneal cancer. She has required recent
admission where she required a paracentesis. Symptoms have worsened in the past few days. She has p.o. intake. Her doctor is working on different medicine to help with nausea but nothing seems to be helping.
On exam, she does have distention. She does have decreased bowel sounds and decreased flatulence. She is not vomiting. Will give trial of Phenergan. Given her history, will repeat CT looking for evidence of fluid versus small bowel obstruction
Physical exam
General: Weak and frail
HEENT: protecting airway. Mildly dry mucous membranes
Neck: appears supple
CV: No evidence of cyanosis
Resp: No accessory muscle use
Abd: Distended, vague tenderness without rebound
Extremities: No deformities
Neuro: alert
Psych: Normal affect
Skin: Intact
Problems Addressed including Acute and Chronic Conditions affecting care:
1. Abdominal distention
Acuity: acute
Prognosis: stable
Details: Will obtain CT looking for evidence of small bowel obstruction versus ascites
2. Nausea
Acuity: acute
Prognosis: stable
Details: Will give trial of Phenergan
3. Dehydration
Acuity: acute
Prognosis: stable
Details: Will give IV fluids
Updates
Patient found to have significant leukocytosis. It was confirmed by patient and that she received a Neulasta shot on Monday
CT consistent with known metastatic disease and shows evidence of worsening ascites. IR made aware who may evaluate today or tomorrow. Will admit regardless given her poor p.o. intake and worsening symptoms
Differential Diagnosis (but not limited to): Small bowel obstruction, dehydration, ascites
Testing considered: Abdominal ultrasound
Drug therapy (if applicable): OTC meds, please see d/c instruction regarding Rx drugs
Amount and/or Complexity of Data Reviewed
Clinical info obtained from: Patient
External data reviewed: Recently had paracentesis showing no evidence of SBP
Labs I independently reviewed (but not limited to): Leukocytosis
Radiology: The CT scan was personally and independently reviewed. In addition, official CT report reviewed.
Pulse Ox: not hypoxic
EKG independently reviewed: N/A
Educational Resource Coordinator: N/A
Critical Care: N/A
Risk of Complication:
Social Determinants of health: Good social support
Discussed with other providers: Interventional radiology, hospitalist
Escalation of Care includes Admit/Obs: Given her persistent symptoms, will admit for IR intervention
Occasional wrong word or 'sound a like' substitutions may have occurred due to the inherent limitations of voice recognition software. Read the chart carefully and recognize, using context, where substitutions have occurred.
*Critical Care Note
Total Time (30-74mins, 75-104mins- exclusive of procedures): Not Applicable
ED Attending Note
-
Portions of this chart may have been created with voice recognition software.� Occasional wrong word or��sound alike� substitutions may have occurred due to the inherent limitations of voice recognition software.
Discharge Plan
Departure
Patient Disposition: Admit
Date of Disposition: 04/01/24
Time of Disposition: 16:38
Admit to: Med/Surg
Presentation/result/management discussed w/ accepting MD/DO: Hospitalist
Discharge Problem:
Ascites
Prescriptions:
No Action
nateglinide 120 MG tablet
120 mg PO TID
Hold Instructions: Resume on 04/02/24. Check with your primary care physician by 03/25/24 regarding if and when you should resume this medication based on your blood sugar readings.
levothyroxine 100 MCG tablet
100 mcg PO DAILY
calcium carbonate 600 MG tablet
1,200 mg PO DAILY
cholecalciferol (vitamin D3) [Vitamin D3] 1,000 UNIT capsule
1,000 unit PO DAILY
amlodipine 5 mg Tablet
5 mg PO DAILY
losartan 50 mg tablet
100 mg PO DAILY
metformin 500 mg tablet
1,000 mg PO BID@0800,1700
prochlorperazine maleate 10 mg tablet
10 mg PO Q6H PRN (Reason: nausea)
Hold Instructions: Resume on 04/02/24. Check with your primary care physician regarding when you can resume this medication (EKG on QTc would be a good idea to check first with primary care provider office).
ondansetron 8 mg tablet,disintegrating
8 mg PO Q8H PRN (Reason: nausea/vomiting)
Hold Instructions: Resume on 04/03/24. Check with your primary care physician regarding when you can resume this medication (EKG on QTc would be a good idea to check first with primary care provider office).
lidocaine-prilocaine 2.5-2.5 % Cream
1 applic TOPICAL DAILY PRN (Reason: prior to chemo access)
lorazepam 0.5 mg tablet
0.5 mg PO Q8H PRN (Reason: nausea/anxiety)
Patient Comments:
03/21/2024: last filled 03/20/24, 30 tabs for 10 days
metoclopramide HCl 5 mg tablet
5 mg PO Q12H PRN (Reason: nausea)
fluticasone propionate 50 mcg/actuation spray,suspension
1 spray INTRANASAL DAILY
rosuvastatin 10 mg tablet
10 mg PO DAILY
docusate sodium 100 mg Capsule
100 mg PO BIDPRN PRN (Reason: Constipation) Qty: 30 1RF
guaifenesin 600 mg Tablet Extended Release 12hr
600 mg PO Q12 Qty: 30 0RF
Referrals:
Catina Romano DO [Family Provider] -
Interventions
Interventions:
*Risk Screen - Suicide Last Done: 04/01/24 12:13
*General Assessment Last Done: 04/01/24 12:13
*Neglect/Abuse Screening Last Done: 04/01/24 12:13
ED- Fall Risk Assessment Last Done: 04/01/24 12:13
*ED COVID-19 Vaccine History Last Done: 04/01/24 11:47
ES-Drkfnx-Htizmxnivm Assessment Last Done: 04/01/24 12:13
Discharge Date and Time
Print Language: LITHUANIAN
[2024-04-01 12:49] LABS: % Immature Granulocytes 6.8 % (0-0.5); % Lymphocytes 2.5 % (20.5-51.1); % Monocytes 4.8 % (1.7-9.3); % Neutrophils 85.9 % (42.2-75.2); Absolute Immature Granulocytes 4.2 10^3/uL (0-0.05); Absolute Lymphocytes 1.6 10^3/uL (1.2-3.4); Absolute Neutrophils 53.2 10^3/uL (1.4-6.5); Hematocrit 32.1 % (37.0-47.0); Hemoglobin 10.6 g/dL (12.0-16.0); Mean Corpuscular Hgb 31.6 pg (27.0-31.0); Mean Corpuscular Volume 95.8 fL (81.0-99.0); Mean Platelet Volume 8.4 fL (7.4-10.4); Nucleated Red Blood Cells % 0 %; Platelet Count 306 10^3/uL (130-400); Red Blood Cell Count 3.35 10^6/uL (4.20-5.40); Red Cell Dist. Width 13.4 % (11.5-14.5)
[2024-04-01] MEDS: NSS 1000 IV ×2 (12:50→21:58)
[2024-04-01 12:56] LABS: White Blood Cell Count 61.9 10^3/uL (4.8-10.8)
[2024-04-01] MEDS: PHENERGAN 51 MG IV (12:58)
[2024-04-01 13:03] LABS: ALT (SGPT) 13 U/L (0-35); AST (SGOT) 19 U/L (14-36); Albumin 2.8 g/dl (3.5-5.0); Alkaline Phosphatase 215 U/L (38-126); Blood Urea Nitrogen 28 mg/dl (7-17); Calcium 7.8 mg/dl (8.4-10.2); Carbon Dioxide 19 mmol/L (22-30); Chloride 109 mmol/L (98-107); Estimated Creatinine Clearance 33 ml/min; Glucose 132 mg/dl (70-99); Lipase 31 U/L (23-300); Potassium 4.8 mmol/L (3.5-5.1); Sodium 133 mmol/L (135-145); Total Bilirubin 0.3 mg/dl (0.2-1.3); Total Protein 5.3 g/dl (6.3-8.2)
[2024-04-01] MEDS: ATIVAN 1 MG IV (17:02)
--- NOTE | 2024-04-01 17:24 | HPS.HSE ---
Family Physician
-
Family Physician: Catina Romano
Chief Complaint
-
Abdominal distention and poor appetite
History of Present Illness
Patient with history of peritoneal cancer? Primary currently on chemotherapy. She presents with increasing abdominal distention and poor appetite. She was also feeling nauseous She is not eating. she was eating poorly because of abdominal
distention.
No fever or chills.
2 weeks ago she had ascites tap. Prior to that she had tap once many months ago.
no prior history of abdominal obstruction. She had loose bowel movements yesterday.
Denies any chest pain,Shortness of breath or cough.
CT of the abdomen pelvis shows large volume ascites with no evidence of intestinal obstruction.
Medical History
Past Medical History
Past Medical History: Reports Cancer, HTN, Hypercholesterolemia, Hypothyroidism and NIDDM
Past Surgical History: Reports Gynocological ( Hysterectomy / Bilateral Salpingo-oophorectomy/ Debulking) and Tonsilectomy
Social History
Tobacco: Former Smoker
Alcohol: None
Drug: None
Personal:
Living: With Family
Family History
Family History: Not pertinent
Allergies / Home Medications
Allergies reflects when Allergies were last updated in [employer].
Home Medications with original date entered in [employer]
Allergy/Medication List:
Allergies
Allergy/AdvReac Type Severity Reaction Status Date / Time
lisinopril Allergy cough Verified 04/01/24 11:50
Home Medications
calcium carbonate 1,200 mg PO DAILY 11/03/21
cholecalciferol (vitamin D3) 25 mcg (1,000 unit) capsule (Vitamin D3) 1,000 unit PO DAILY 11/03/21
levothyroxine 100 mcg tablet 100 mcg PO DAILY 11/03/21
nateglinide 120 mg tablet 120 mg PO TID 11/03/21
amlodipine 5 mg tablet 5 mg PO DAILY 12/22/22
fluticasone propionate 50 mcg/actuation nasal spray,suspension 1 spray intranasal DAILY 03/21/24
lidocaine-prilocaine 2.5 %-2.5 % topical cream 1 applic topical DAILY PRN prior to chemo access 03/21/24
lorazepam 0.5 mg tablet 0.5 mg PO Q8H PRN nausea/anxiety 03/21/24
losartan 50 mg tablet 100 mg PO DAILY 03/21/24
metformin 500 mg tablet 1,000 mg PO BID@0800,1700 03/21/24
metoclopramide HCl 5 mg tablet 5 mg PO Q12H PRN nausea 03/21/24
ondansetron 8 mg disintegrating tablet 8 mg PO Q8H PRN nausea/vomiting 03/21/24
prochlorperazine maleate 10 mg tablet 10 mg PO Q6H PRN nausea 03/21/24
rosuvastatin 10 mg tablet 10 mg PO DAILY 03/21/24
docusate sodium 100 mg capsule 100 mg PO BIDPRN PRN Constipation #30 caps 03/24/24
guaifenesin 600 mg tablet, extended release 12 hr 600 mg PO Q12 #30 tabs 03/24/24
Review of Systems
-
A 12 point ROS was completed and negative except as noted: Yes
Physical Exam
Vital Signs
Vital Signs
Temp Pulse Resp BP Pulse Ox
98.7 F 95 22 107/58 100
04/01/24 11:47 04/01/24 15:00 04/01/24 15:00 04/01/24 15:00 04/01/24 14:00
Physical Exam
General: No Apparent Distress
HEENT: Moist mucous membranes
Respiratory: Clear
Cardiac: S1/S2; No JVD
GI: Soft, Normal Bowel Sounds and Distended
Musculoskeletal: No No Edema
Neuro: AO x 3
Psych: Calm; No Confused
Laboratory Results
-
04/01/24 12:42
04/01/24 12:42
Laboratory Results
Total Bilirubin 0.3 mg/dl (0.2-1.3) 04/01/24 12:42
AST 19 U/L (14-36) 04/01/24 12:42
ALT 13 U/L (0-35) 04/01/24 12:42
Alkaline Phosphatase 215 U/L (38-126) H 04/01/24 12:42
Lipase 31 U/L (23-300) 04/01/24 12:42
Data Reviewed
-
CT Scan: Report Reviewed by me ( CT abdomen pelvis)
Lab Data: Labs Reviewed by me
Impression/Plan
-
Recurrent large volume ascites-suspect related to malignancy. Patient with poor appetite.
Admit to hospital for therapeutic tap and also further evaluation of recurrent ascites. Consult oncology.
Peritoneal cancer? Primary
Currently on chemotherapy which she received on Monday. She had Neulasta postchemotherapy which explains her significant leukocytosis.
Renal insufficiency-elevated creatinine. Suspect dehydration related. Does not meet criteria for KAT. Hydrate and follow.
Diabetes mellitus type 2-hold oral hypoglycemic agents till oral intake is adequate
Hypertension-hold losartan and continue with amlodipine. Await med rec to be completed
Full code.
Discussed with family bedside in the ER.
[2024-04-01 22:07] LABS: Glucose - Point of Care 128 mg/dl (70-99)
[2024-04-02] VITALS (7 sets, daily range): BP systolic 84–125; BP diastolic 48–62
[2024-04-02 06:05] LABS: Hematocrit 30.7 % (37.0-47.0); Mean Corp Hgb Conc. 32.6 g/dL (33.0-37.0); Mean Corpuscular Hgb 32.3 pg (27.0-31.0); Mean Platelet Volume 8.6 fL (7.4-10.4); Platelet Count 294 10^3/uL (130-400); Red Cell Dist. Width 13.8 % (11.5-14.5)
[2024-04-02 06:12] LABS: White Blood Cell Count 46.6 10^3/uL (4.8-10.8)
[2024-04-02] MEDS: SYNTHROID 100 MCG PO (06:16)
[2024-04-02 06:34] LABS: Blood Urea Nitrogen 26 mg/dl (7-17); Calcium 7.3 mg/dl (8.4-10.2); Carbon Dioxide 15 mmol/L (22-30); Chloride 113 mmol/L (98-107); Estimated Creatinine Clearance 41 ml/min; Glucose 103 mg/dl (70-99); Potassium 4.6 mmol/L (3.5-5.1); Sodium 138 mmol/L (135-145); eGFR > 60.00
[2024-04-02] MEDS: NSS 1000 IV (07:59)
[2024-04-02] MEDS: VITAMIN D3 (cholecalciferol) 25 MCG PO (08:00)
[2024-04-02 08:05] LABS: Glucose - Point of Care 131 mg/dl (70-99)
[2024-04-02] MEDS: COMPAZINE 10 MG PO (08:12)
--- NOTE | 2024-04-02 09:11 | W.PN.HOSP.TC ---
Addendum entered and electronically signed by Surekha Grimm MD 04/02/24 15:29:
pt seen and examined independently--agree with plan set forth by Dr. Joseph
GENERAL: chronically ill appearing female in no apparent distress
HEENT: NC/AT
HEART: regular rate and rhythm, +S1, +S2 4/6 MARISOL
LUNGS : clear to auscultation bilaterally
ABDOM: soft, nontender, nondistended, + bowel sounds
EXT: no cyanosis, clubbing, or edema
NEUROLOGIC: grossly intact
Nausea--likely secondary to chemotherapy treatment with contribution of ascites--feels better post paracentesis--cont zofran--await onc input
Peritoneal carcinoma stage III--Patient was started on new chemotherapy treatment, Doxil, which made her sick--Consults oncology
Abdominal ascites--due to peritoneal cancer--s/p paracentesis 4L 5/7--previous tap was ~2weeks ago--may need standing order for every 10 days or so
Dyspnea--Patient denies any history of cardiovascular diseases in the past, denies lung infection--Order chest x-ray, EKG
possible d/c after seen by onc
Original Note:
Today's Communication/Plan
-
IV ondansetron
Nausea improved after paracentesis
Assessment / Plan
Assessment / Plan
Impression
Nausea secondary to chemotherapy treatment
Peritoneal carcinoma stage III
Abdominal situs
Dyspnea
PLAN
Nausea secondary to chemotherapy treatment
Start ondansetron IV
Consult hematology and oncology
Peritoneal carcinoma stage III
Patient was started on new chemotherapy treatment, Doxil, which made her sick
Consults oncology
Abdominal ascites
Consult interventional radiology for paracentesis
4 L of ascitic fluid on paracentesis ascites culture pending
Ascites culture pending
Dyspnea
Patient denies any history of cardiovascular diseases in the past, denies lung infection
Order chest x-ray, EKG
Anticipated Discharge: Within 24 hours
Subjective/Interval History
-
Date of Service: April 02, 2024
Patient is a 73 y/o female with a past medical history of peritoneal cancer (status post debulking surgery), hypertension, hyperlipidemia, hypothyroidism, and diabetes mellitus who presents today with nausea. She states that in the past week she
has not been able to eat she is only able to tolerate liquids. She can someone tolerate solids but every time she eats that she feels nauseous. Patient has had no episodes of vomiting. She also reports of diarrhea which she has been having in the
past week, no blood in stools. for peritoneal cancer she sees [facility], Dr. Lyons. She is undergoing chemotherapy treatment since 2020. Patient was started on new chemotherapy treatment, Doxil, which was 03/27 .patient reports that after the
treatment it made her sick . patient is in the room with her granddaughter and she states that a week and a half ago she had paracentesis. She reports after paracentesis she has noticed that her belly has increased in size she denies constipation.
Patient tried Compazine for nausea which did not work, they have tried multiple antinausea medications with no relief. she also complains of shortness of breath which has increased in the past week which specifically with when she sits up. Admits
orthopnea. Denies dyspnea on exertion. Patient was seen in the ER on 03/22 with complaints of fever post paracentesis. blood cultures were negative, antibiotics were held. Fever resolved on its own. Ascites culture showed no growth.
Objective Data
-
Labs:
Laboratory Results
04/02/24
05:37
WBC 46.6 H*
Hgb 10.0 L
Hct 30.7 L
Plt Count 294
Sodium 138
Potassium 4.6
Chloride 113 H
Carbon Dioxide 15 L
BUN 26 H
Creatinine 0.9
Glucose 103 H
Calcium 7.3 L
Vital Signs:
Vital Signs
Temp Pulse Resp BP Pulse Ox
97.8 F 95 17 105/50 92
04/02/24 08:04 04/02/24 08:04 04/02/24 08:04 04/02/24 08:04 04/02/24 08:04
Review of Systems
-
History Source: Patient and Family
All other systems: Reviewed and negative (Except mentioned)
Respiratory: Reports Trouble Breathing (Dyspnea with sitting and laying down)
Abdomen/GI: Reports Nausea and Diarrhea; Denies Abdominal Pain or Vomiting
Physical Exam
-
General: Conversant
HEENT: Normocephalic and Atraumatic
Respiratory: Clear to Auscultation and Other (Patient was short of breath while speaking)
Cardiac: Regular Rhythm, S1/S2 and Murmur (Systolic)
GI: Nontender and Distended; Negative Soft (Fullness) or No Hepatosplenomegaly
Musculoskeletal: No Edema
Neuro: AO x 3
Psych: Calm
[2024-04-02 12:53] LABS: Glucose - Point of Care 118 mg/dl (70-99)
[2024-04-02 12:59] LABS: Body Fluid Mononuclear 61.4 %; Body Fluid Polymorphonuclear 38.6 %; Body Fluid WBC 611 /CUMM
[2024-04-02 13:00] LABS: Body Fluid Second Tech CF
[2024-04-02 13:05] LABS: Body Fluid Albumin 1.4 g/dl
--- NOTE | 2024-04-02 16:40 | CON.ONC ---
Impression
Impression
symptomatic ascites
primary peritoneal cancer, recently started DOXIL
Plan
Plan
Symptoms improved following paracentesis today
Okay for d/c from onc perspective
Has f/u scheduled
Patient History
History of Present Illness
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 CT showed ascites,
carcinomatosis with lesions along the right lobe of the liver, and no obstruction. She underwent tap x 4.5L earlier this afternoon, and symptoms have improved. She ate lunch and had a BM after the tap. Family at bedside.
Past-Medical/Surgical History
Past Medical History
Past Medical History: Reports Cancer, HTN, Hypercholesterolemia, Hypothyroidism and NIDDM
Past Surgical History: Reports Gynecological (Hysterectomy / Bilateral Salpingo-oophorectomy/ Debulking) and Tonsillectomy
Social History
Tobacco: Former Smoker
Alcohol: None
Drug: None
Personal:
Living: With Family
Family History
Family History: Not pertinent
Patient Medication
�Medication �Instructions �Recorded �Confirmed �Last Taken �Type
calcium carbonate 600 mg PO BID Supplement 11/03/21 04/01/24 04/01/24 History
levothyroxine 100 mcg tablet 100 mcg PO MOTUWETHFR@0800 Thyroid 11/03/21 04/01/24 04/01/24 History
nateglinide 120 mg tablet 120 mg PO AC Diabetes 11/03/21 04/01/24 03/31/24 History
amlodipine 5 mg tablet 5 mg PO DAILY Blood Pressure 12/22/22 04/01/24 04/01/24 History
fluticasone propionate 50 1 spray intranasal DAILY Allergies 03/21/24 04/01/24 04/01/24 History
mcg/actuation nasal
spray,suspension
lorazepam 0.5 mg tablet 0.5 mg PO Q8H PRN nausea/anxiety 03/21/24 04/01/24 03/31/24 History
losartan 50 mg tablet 100 mg PO DAILY Blood Pressure 03/21/24 04/01/24 04/01/24 History
metformin 500 mg tablet 1,000 mg PO BIDWMEAL Diabetes 03/21/24 04/01/24 04/01/24 History
metoclopramide HCl 5 mg tablet 5 mg PO Q12H PRN nausea 03/21/24 04/01/24 04/01/24 History
prochlorperazine maleate 10 mg 10 mg PO Q6H PRN nausea 03/21/24 04/01/24 03/31/24 History
tablet
rosuvastatin 10 mg tablet 10 mg PO DAILY High Cholesterol 03/21/24 04/01/24 04/01/24 History
cholecalciferol (vitamin D3) 25 25 mcg PO DAILY Supplement 04/01/24 04/01/24 04/01/24 History
mcg (1,000 unit) tablet
guaifenesin 600 mg tablet, 600 mg PO [id number] PRN cough 04/01/24 04/01/24 Unknown History
extended release 12 hr
levothyroxine 100 mcg tablet 200 mcg PO SUSA@0800 Thyroid 04/01/24 04/01/24 03/31/24 History
Active Medications
Generic Name Dose Route Start Last Admin
Trade Name Freq PRN Reason Stop Dose Admin
Acetaminophen 650 mg 04/01/24 21:25
Acetaminophen 325 Mg Tablet PO 04/29/24 21:24
Q4HPRN PRN
mild pain /fever >100.4
Amlodipine Besylate 5 mg 04/02/24 08:00 04/02/24 08:00
Amlodipine 5 Mg Tablet PO 04/30/24 07:59 Not Given
DAILY MARIA INES
Calcium Carbonate 500 mg 04/02/24 08:00 04/02/24 08:00
Calcium Carbonate 500 Mg Tablet PO 04/30/24 07:59 Not Given
BID MARIA INES
Cholecalciferol 25 mcg 04/02/24 08:00 04/02/24 08:00
Cholecalciferol (Vitamin D3) 25 Mcg Tablet (1,000 Units) PO 04/30/24 07:59 25 mcg
DAILY MARIA INES Administration
Dextrose 12.5 grams 04/01/24 21:25
Dextrose 50% (0.5 Grams/Ml) 50 Ml Syringe IV 04/29/24 21:24
[id number] PRN
hypoglycemia
Protocol
Enoxaparin Sodium 40 mg 04/01/24 21:25 04/01/24 21:58
Enoxaparin Sodium 40 Mg/0.4 Ml Syringe SC 04/29/24 21:24 Not Given
QPM MARIA INES
Glucagon 1 mg 04/01/24 21:25
Glucagon 1 Mg Vial IM 04/29/24 21:24
PRN PRN
hypoglycemia
Protocol
Guaifenesin 600 mg 04/01/24 21:25
Guaifenesin 600 Mg Extended Release Tablet PO 04/29/24 21:24
[id number] PRN
cough
Sodium Chloride 1,000 mls @ 100 mls/hr 04/01/24 21:25 04/02/24 07:59
Nss IV 1,000 mls
.Q10H MARIA INES Administration
Insulin Aspart 0 units 04/02/24 07:30 04/02/24 12:56
Insulin Aspart Low Resistance 300 Units/3 Ml Pen.Injctr SC 04/30/24 07:29 Not Given
AC MARIA INES
Protocol
Levothyroxine Sodium 200 mcg 04/06/24 06:00
Levothyroxine 100 Mcg Tablet PO 05/04/24 05:59
SuSa@599 MARIA INES
Levothyroxine Sodium 100 mcg 04/02/24 06:00 04/02/24 06:16
Levothyroxine 100 Mcg Tablet PO 04/30/24 05:59 100 mcg
MoTuWeThFr@599 MARIA INES Administration
Lorazepam 0.5 mg 04/01/24 21:25
Lorazepam 0.5 Mg Tablet PO 04/29/24 21:24
Q8HPRN PRN
nausea/anxiety
Ondansetron HCl 4 mg 04/02/24 14:22
Ondansetron 4 Mg/2 Ml Vial IV 04/30/24 14:21
Q6HPRN PRN
nausea post chemotherapy
Prochlorperazine Maleate 10 mg 04/01/24 21:25 04/02/24 08:12
Prochlorperazine 10 Mg Tablet PO 04/29/24 21:24 10 mg
Q6HPRN PRN Administration
nausea
Sodium Chloride 0 flush 04/01/24 22:00
Sodium Chloride 0.9% (Flush) Syringe IV 04/29/24 21:59
PER PROTOCOL MARIA INES
Review of Systems
-
All Other Systems: Not reviewed unless documented
Physical Exam
-
General: No Apparent Distress, Conversant and Appears Chronically Ill
HEENT: Negative Jaundice
Skin: Warm and Dry
Psych: Calm and Intact Judgement/Insight
Labs
Lab Results
WBC 46.6 10^3/uL (4.8-10.8) H* 04/02/24 05:37
RBC 3.10 10^6/uL (4.20-5.40) L 04/02/24 05:37
Hgb 10.0 g/dL (12.0-16.0) L 04/02/24 05:37
Hct 30.7 % (37.0-47.0) L 04/02/24 05:37
MCV 99.0 fL (81.0-99.0) 04/02/24 05:37
MCH 32.3 pg (27.0-31.0) H 04/02/24 05:37
MCHC 32.6 g/dL (33.0-37.0) L 04/02/24 05:37
RDW 13.8 % (11.5-14.5) 04/02/24 05:37
Plt Count 294 10^3/uL (130-400) 04/02/24 05:37
MPV 8.6 fL (7.4-10.4) 04/02/24 05:37
Abs Immat Gran (auto) 4.2 10^3/uL (0-0.05) H 04/01/24 12:42
Absolute Neuts (auto) 53.2 10^3/uL (1.4-6.5) H 04/01/24 12:42
Absolute Lymphs (auto) 1.6 10^3/uL (1.2-3.4) 04/01/24 12:42
Absolute Monos (auto) 3.0 10^3/uL (0.1-0.6) H 04/01/24 12:42
Absolute Eos (auto) 0.0 10^3/uL (0-0.7) 04/01/24 12:42
Absolute Basos (auto) 0.0 10^3/uL (0-0.2) 04/01/24 12:42
Immature Gran % 6.8 % (0-0.5) H 04/01/24 12:42
Neutrophils % 85.9 % (42.2-75.2) H 04/01/24 12:42
Lymphocytes % 2.5 % (20.5-51.1) L 04/01/24 12:42
Monocytes % 4.8 % (1.7-9.3) 04/01/24 12:42
Eosinophils % 0.0 % (0-6) 04/01/24 12:42
Basophils % 0.0 % (0-2) 04/01/24 12:42
Creatinine 0.9 mg/dL (0.6-1.0) 04/02/24 05:37
Vital Signs
Vital Signs
Temp Pulse Resp BP Pulse Ox
98.3 F 94 26 111/54 96
04/02/24 10:20 04/02/24 11:36 04/02/24 11:36 04/02/24 11:36 04/02/24 11:27
--- NOTE | 2024-04-02 17:03 | W.DCSUMMARY ---
Addendum entered and electronically signed by Surekha Grimm MD 04/02/24 17:40:
Fully read and agree with Dr. Joseph's d/c summary as documented with clarification of peritoneal adenocarcinoma stage IIIb.
Original Note:
Discharge Summary
Discharge Data
Date of Admission: 04/01/24
Date of Discharge: 04/02/24
-
Pending Results: No
Hospital Course
73-year-old female came to the ED with complaints of nausea. She has a history of adenocarcinoma stage IIIb, patient was started on new chemotherapy treatment, Doxil on 03/27. After the treatment patient felt sick. She had taken multiple
anti-nausea medication including Compazine, metoclopramide, prochlorperazine, which did not help. She was able to tolerate some liquids. She had a recent admission where she required paracentesis 2 weeks ago , drained 2.4 L of fluid. Patient in
the past week noticed abdominal distention accompanied with diarrhea. In the ED today initial vitals were normotensive, afebrile. On exam she does have distention. In the ED patient was started on IV fluids. CT scan showed metastatic disease,
an evidence of worsening ascites. IR was consulted for paracentesis which drained 4 L of fluid on this admission. Nausea improved after drainage of the fluid. Patient was also started on IV ondansetron. Patient reported of some shortness of
breath while sitting up and laying down. Chest x-ray and EKG were unremarkable. Blood work showed leukocytosis which was due to Neulasta shot which the patient received on Monday , 03/29. Oncology was consulted and they were okay to discharge the
patient today. Patient will follow-up with [facility] outpatient. On the day of discharge patient's vitals are stable, she is able to tolerate diet (solids + liquids).
Vital signs at discharge
Blood pressure 111/54 pulse 94 RR 26 temp 98.3 O2 sat 96 on room air
Nausea secondary to chemotherapy treatment contributing to ascites
Continue metoclopramide, prochlorperazine
Follow-up outpatient oncology
Abdominal ascites
May need a standing order for paracentesis to be done in every 10-14 days. Patient should talk to her oncologist
Dyspnea
Chest x-ray and EKG were normal
Chemotherapy treatment and patient's current diagnosis of peritoneal cancer could be a contributing to it
Discharge Plan
-
Patient Disposition: Home (Routine Discharge)
Discharge Diagnosis/Procedures: Nausea secondary to chemotherapy treatment
Peritoneal carcinoma stage III
Abdominal ascites
Dyspnea
Condition: Fair
Diet: Regular
Activity: No restrictions
Driving Restrictions: As prior to admission
Bathing Restrictions: None
Referrals:
Levi Lyons, DO [Active] - in one week
Catina Romano, DO [Family Provider] - in less than 1 week
Additional Discharge Medication Instructions: May need standing order for every 10 day or so for abdominal paracentesis. Patient should discuss with oncology.
Prescriptions:
Continued
nateglinide 120 MG tablet
120 mg PO AC
Hold Instructions: Resume on 04/02/24. Check with your primary care physician by 03/25/24 regarding if and when you should resume this medication based on your blood sugar readings.
Patient Comments:
04/01/2024, last filled on 11/09/2023 for 90-day supply.
levothyroxine 100 MCG tablet
100 mcg PO MOTUWETHFR@0800
calcium carbonate 600 MG tablet
600 mg PO BID
Patient Comments:
04/01/2024, patient takes second tablet one hour after first tablet.
amlodipine 5 mg Tablet
5 mg PO DAILY
losartan 50 mg tablet
100 mg PO DAILY
metformin 500 mg tablet
1,000 mg PO BIDWMEAL
prochlorperazine maleate 10 mg tablet
10 mg PO Q6H PRN (Reason: nausea)
Hold Instructions: Resume on 04/02/24. Check with your primary care physician regarding when you can resume this medication (EKG on QTc would be a good idea to check first with primary care provider office).
lorazepam 0.5 mg tablet
0.5 mg PO Q8H PRN (Reason: nausea/anxiety)
metoclopramide HCl 5 mg tablet
5 mg PO Q12H PRN (Reason: nausea)
fluticasone propionate 50 mcg/actuation spray,suspension
1 spray INTRANASAL DAILY
rosuvastatin 10 mg tablet
10 mg PO DAILY
levothyroxine 100 mcg Tablet
200 mcg PO SUSA@0800
cholecalciferol (vitamin D3) 25 mcg (1,000 unit) Tablet
25 mcg PO DAILY
guaifenesin 600 mg tablet extended release 12hr
600 mg PO [id number] PRN (Reason: cough)
Discharge Orders:
Discharge Patient (As Directed); Ordered 04/02/24
Ordered By: Fabien Joseph
Discharge Date and Time
Print Language: ROMANIAN
== END 2024-04-02 17:30 | disposition home or self-care (01) | DRG 375 ==
LOC: ED 18:53
PROVIDERS: Emergency Medicine; Radiology Diagnostic Radiology; Student in an Organized Health Care Education/Training Program; ADMITTING PHYSICIAN Internal Medicine; ATTENDING PHYSICIAN Internal Medicine; CONSULT PHYSICIAN Internal Medicine Hematology & Oncology; EMERGENCY PHYSICIAN Student in an Organized Health Care Education/Training Program; FAMILY PHYSICIAN Internal Medicine
PROC: 0W9G3ZZ Drainage of Peritoneal Cavity, Percutaneous Approach (ICD-10-PCS; 2024-04-02)
DX: C48.2 Malignant neoplasm of peritoneum, unspecified (principal); R18.8 Other ascites
CPT/HCPCS: 49083; 71046; 74177; 80048; 80053; 82042; 82962; 83690; 84157; 85025; 85027; 87015; 87070; 87205; 89051; 93005; 96365; 96375; 99285; Q9967

== ENCOUNTER → 2024-04-09 09:48 | Outpatient (REF) | payer OTHER, SELFPAY ==
[2024-04-09 10:00] VITALS: BP 103/57; BP_SYST 80
[2024-04-09 10:58] VITALS: BP 96/42
[2024-04-09 12:25] LABS: Body Fluid WBC 438 /CUMM
[2024-04-09 12:58] LABS: Body Fluid Second Tech BP
== END ==
LOC: RADI 09:48
PROVIDERS: ATTENDING PHYSICIAN Nurse Practitioner Family; FAMILY PHYSICIAN Internal Medicine
DX: R18.8 Other ascites (principal)
CPT/HCPCS: 49083; 89051

== ENCOUNTER 2024-04-11 16:59 | Inpatient (IN) | payer OTHER, SELFPAY ==
[2024-04-11] VITALS (10 sets, daily range): BP systolic 80–106; BP diastolic 40–66; BMI 20.8; BMI 20.5
[2024-04-11 14:44] LABS: % Basophils 0.7 % (0-2); % Eosinophils 0.3 % (0-6); % Immature Granulocytes 1.4 % (0-0.5); % Lymphocytes 10.4 % (20.5-51.1); % Monocytes 5.5 % (1.7-9.3); % Neutrophils 81.7 % (42.2-75.2); Absolute Basophils 0.1 10^3/uL (0-0.2); Absolute Immature Granulocytes 0.2 10^3/uL (0-0.05); Absolute Lymphocytes 1.4 10^3/uL (1.2-3.4); Absolute Monocytes 0.8 10^3/uL (0.1-0.6); Absolute Neutrophils 11.3 10^3/uL (1.4-6.5); Hemoglobin 9.5 g/dL (12.0-16.0); Mean Corp Hgb Conc. 32.8 g/dL (33.0-37.0); Mean Corpuscular Hgb 31.6 pg (27.0-31.0); Mean Corpuscular Volume 96.3 fL (81.0-99.0); Nucleated Red Blood Cells % 0 %; Platelet Count 336 10^3/uL (130-400); Red Blood Cell Count 3.01 10^6/uL (4.20-5.40); Red Cell Dist. Width 14.3 % (11.5-14.5); White Blood Cell Count 13.8 10^3/uL (4.8-10.8)
[2024-04-11 15:21] LABS: ALT (SGPT) 24 U/L (0-35); AST (SGOT) 28 U/L (14-36); Albumin 2.4 g/dl (3.5-5.0); Alkaline Phosphatase 102 U/L (38-126); Blood Urea Nitrogen 42 mg/dl (7-17); Calcium 8.3 mg/dl (8.4-10.2); Carbon Dioxide 17 mmol/L (22-30); Chloride 114 mmol/L (98-107); Estimated Creatinine Clearance 31 ml/min; Glucose 112 mg/dl (70-99); Magnesium 1.6 mg/dl (1.6-2.3); Potassium 6.5 mmol/L (3.5-5.1); Sodium 135 mmol/L (135-145); Total Bilirubin 0.1 mg/dl (0.2-1.3); Total Protein 4.8 g/dl (6.3-8.2); eGFR 47.21
--- NOTE | 2024-04-11 15:32 | ED.GENMED ---
History of Present Illness
General
Chief Complaint: Abnormal Lab Value
Source: patient
Time Seen by Provider: 04/11/24 14:22
Travel History
Have you had any contact with someone who has COVID-19?: No
Do you have any symptoms of coronavirus? Fever > 100 degrees, chills, cough, shortness of breath, sore throat, loss of taste or smell, muscle aches, or headache?: No
History of Present Illness
History of Present Illness:
73-year-old female with past medical history of ovarian and peritoneal cancer, hypertension, diabetes presenting to the emergency after she had outpatient labs done yesterday which showed a potassium of 6.6, patient was called today and told to the
emergency department. She states that following her paracentesis about 2 weeks ago she has been feeling a little bit better. She does note that she has been making a little less urine over the last couple of days. She denies any fevers, chills,
rigors, nausea, vomiting. She does admit to some frequent loose stools over the last 48 hours as well.
Past History
Past History
ED Past Medical History: Cancer (Primary peritoneal cancer.), HTN, Hypercholesterolemia, NIDDM and Hypothyroidism
ED Past Surgical History: Gynecological (Hysterectomy with debulking, tubal ligation) and Tonsilectomy
Social History
Tobacco: Non-smoker
Alcohol: Occasional
Drug: None
Personal:
Living: with family
Review of Systems
Review of Systems
All Other Systems: ROS reviewed and negative except as documented in HPI and ROS
Phy Exam
Physical Exam
Physical Exam:
GENERAL: Alert , in no apparent distress, pale, cachectic.
EYE: clear conjunctiva b/l
HEAD: NCAT
ENT: o/p clr, mmm.
CARDIAC: Regular rate and rhythm .
LUNGS: Clear breath sounds bilaterally, no acute respiratory distress, no wheezes/rales/rhonchi
ABDOMEN: Firm and somewhat distended, no r/g, no cvat
NEUROLOGICAL: Alert and oriented
SKIN: Warm and dry, skin intact.
MUSCULOSKELETAL: No edema, well perfused.
PSYCH: Normal and appropriate interaction.
Scores
Heart Failure Risk
Heart Failure Risk Score: Not Applicable
Heart Score for Chest Pain Patients
STEMI patient?: Not applicable
Withdrawal Assessment of Alcohol
Withdrawal Assessment Completed?: Not applicable
Course
Orders/Labs/Results
Orders:
Orders
04/11/24 13:10
EKG [Electrocardiogram (*1)] Urgent
Reason for Study: Fatigue / Weakness
EKG- Treatment ONCE
04/11/24 14:34
Complete Blood Count/With Diff Urgent
Comprehensive Metabolic Panel Urgent
Magnesium Urgent
Vitamin D, 25-Oh Routine
04/11/24 Dinner
Potassium, 2 Gram
At Your Request: Full Participation
Does patient need a safe tray?: No
04/11/24 15:31
Dextrose 50%-Water [Dextrose 50% Syringe] 12.5 grams IV NOW STA
Insulin Aspart [NOVOLOG vial] 4 units SC NOW STA
Sodium Bicarbonate 50 meq IV NOW STA
Sodium Zirconium Cyclosilicate [Lokelma] 10 gram PO NOW STA
04/11/24 15:44
Notify MD As Directed
Notify physician if: once MEed rec is done .TY
04/11/24 16:14
Admit/Transfer Patient As Directed
Co-Sign Provider:
Level of Care: Inpatient admission
Assign to:: Telemetry
Physician / Group: Hospitalist
Diagnosis: Hyperkalemia
Reason for Telemetry: Other
Other Reason for Telemetry: Hyperkalemia
Date to Stop Telemetry: 04/13/24
Time to Stop Telemetry: 11:00
Reason for Hospitalization: Hyperkalemia, KAT
Expected length of stay greater than two midnights?: Yes
ELOS- Estimated Length of Stay in days: 2
I certify the patient meets the requirements for IP care: Yes
04/11/24 16:16
Code Status As Directed
Resuscitation Status: Full Code
04/11/24 16:27
Urinalysis Urgent
Urine Sodium Urgent
04/11/24 16:29
Add On- LAB Routine
Tests Added?: Vit D Level
04/11/24 17:35
0.9% Sodium Chloride 1000 ml [Nss] 1,000 ml IV 40 mls/hr
Bisacodyl [Dulcolax] 10 mg RECTAL [id number] PRN
Dextrose 50%-Water [Dextrose 50% Syringe] 12.5 grams IV [id number] PRN
Docusate W/Senna [Senokot-S] 1 tablet PO BIDPRN PRN
Glucagon [GlucaGen] 1 mg IM PRN PRN
Guaifenesin [Mucinex] 600 mg PO [id number] PRN
Insulin Aspart Corrective Low [Novolog Flexpen-Low Resistance] See Protocol SC AC
METFORMIN HCl [Glucophage] 1,000 mg PO BIDWMEAL
Polyethylene Glycol Powder [Miralax] 17 grams PO DAILYPRN PRN
calcium carbonate 600 mg PO BID PRN
nateglinide 120 mg PO MEALS
promethazine-DM 5 ml PO QIDPRN PRN
04/11/24 17:35
HEMATOLOGY CONSULT Routine
Consulting Provider: Levi Lyons
Was physician already notified: Yes
Reason for consult: On chemo
STOOL [C difficile Antigen & Toxins] Routine
MADDIE Source: Feces/Stool
Specimen Description:
Stool Culture Routine
MADDIE Source: Feces/Stool
Specimen Description:
Activity As Directed
Activity Level: Ambulate
Bedside Glucose Monitoring As Directed
Frequency: AC&HS
Additional Instructions:: Change to q6h if pt on TPN, tube feeding or not eating
Vital Signs As Directed
Frequency: Per unit guidelines
DX Deep Vein Thrombosis Video Routine
04/11/24 20:00
Potassium Routine
Heparin 5,000 units SC Q12
Metoclopramide [Reglan] 5 mg PO BID
04/11/24 22:00
Lorazepam [Ativan] 0.5 mg PO HS
04/12/24 06:00
Basic Metabolic Panel IN AM
Complete Blood Count/With Diff IN AM
Glycohemoglobin (HgbA1c) IN AM
Magnesium IN AM
Vitamin B12 IN AM
04/12/24 08:00
Cholecalciferol (Vitamin D3) [VITAMIN D3 (cholecalciferol)] 25 mcg PO DAILY
Levothyroxine [Synthroid] 100 mcg PO MOTUWETHFR@0800
Rosuvastatin Calcium [Crestor] 10 mg PO DAILY
fluticasone propionate 1 spray NASAL DAILY
04/13/24 08:00
Levothyroxine [Synthroid] 200 mcg PO SUSA@0800
04/13/24 11:00
DC Protocol for Telemetry ONCE
Abnormal Lab Results
04/11/24
14:34
WBC 13.8 H 10^3/uL
(4.8-10.8)
RBC 3.01 L 10^6/uL
(4.20-5.40)
Hgb 9.5 L g/dL
(12.0-16.0)
Hct 29.0 L %
(37.0-47.0)
MCH 31.6 H pg
(27.0-31.0)
MCHC 32.8 L g/dL
(33.0-37.0)
Abs Immat Gran (auto) 0.2 H 10^3/uL
(0-0.05)
Absolute Neuts (auto) 11.3 H 10^3/uL
(1.4-6.5)
Absolute Monos (auto) 0.8 H 10^3/uL
(0.1-0.6)
Immature Gran % 1.4 H %
(0-0.5)
Neutrophils % 81.7 H %
(42.2-75.2)
Lymphocytes % 10.4 L %
(20.5-51.1)
Potassium 6.5 H* mmol/L
(3.5-5.1)
Chloride 114 H mmol/L
(98-107)
Carbon Dioxide 17 L mmol/L
(22-30)
BUN 42 H mg/dl
(7-17)
Creatinine 1.2 H mg/dL
(0.6-1.0)
Glucose 112 H mg/dl
(70-99)
Calcium 8.3 L mg/dl
(8.4-10.2)
Total Bilirubin 0.1 L mg/dl
(0.2-1.3)
Total Protein 4.8 L g/dl
(6.3-8.2)
Albumin 2.4 L g/dl
(3.5-5.0)
Vitamin D 25-Hydroxy 23.3 L ng/mL
(30-80)
04/11/24 14:34
04/11/24 14:34
Vital Signs
Initial and Last Documented VS:
Initial Vital Signs
Temp
97.5 F
04/11/24 13:09
Last Documented Vital Signs
Temp Pulse Resp BP Pulse Ox
97.8 F 87 16 106/52 98
04/11/24 17:49 04/11/24 17:49 04/11/24 17:49 04/11/24 17:49 04/11/24 17:49
MDM/Problems Addressed
Differential Diagnosis Includes:
Uremia, medication interaction, obstructive uropathy, lab error
MDM/Problems Addressed:
73-year-old female presenting emergency department for evaluation of reported hyperkalemia done on outpatient labs. Patient does note diarrhea which would portend to hypokalemia. She notes recent paracentesis due to and recurring ascites. She
does note a history of some mild kidney disease. Will obtain repeat labs and EKG. Reassessment following
Chronic conditions affecting care: Kidney disease
*Pulse Oximetry
Patient hypoxic: no
*EKG
Interpreted by ED Provider?: Yes
Comparison EKG: no changes
Heart Rate: 88
Rate: normal
Rhythm: sinus
[place]: normal axis
Ischemia: no ischemia
*Manager Of It Interpretation
Rate: normal
Rhythm: sinus
*Critical Care Note
Total Time (30-74mins, 75-104mins- exclusive of procedures): Not Applicable
Data Reviewed
Review of Other/Old Records Reveals: Labs and Records
Patient Management
Discussion with other providers: Hospitalist
Escalation/DeEscalation of care consider admission/obs:
Patient's potassium did come back elevated at 6.5. We treated her with Lokelma, sodium bicarbonate, insulin and dextrose. Will admit patient for continued monitoring. Anticipate nephrology consultation. Hospitalist team is aware and accept
continued evaluation and treatment.
ED Attending Note
-
Portions of this chart may have been created with voice recognition software.� Occasional wrong word or��sound alike� substitutions may have occurred due to the inherent limitations of voice recognition software.
Discharge Plan
Departure
Patient Disposition: Admit
Date of Disposition: 04/11/24
Time of Disposition: 15:32
Presentation/result/management discussed w/ accepting MD/DO: Hospitalist
Discharge Problem:
Acute hyperkalemia, Acute uremia
Interventions
Interventions:
*Risk Screen - Suicide Last Done: 04/11/24 13:42
*General Assessment Last Done: 04/11/24 13:42
*Neglect/Abuse Screening Last Done: 04/11/24 13:42
*ED COVID-19 Vaccine History Last Done: 04/11/24 13:42
*Nursing Disposition Last Done: 04/11/24 17:49
Discharge Date and Time
Discharge Date/Time: 04/11/24 17:49
--- NOTE | 2024-04-11 15:43 | HPS.HSE ---
Addendum entered and electronically signed by Vic Forte MD 04/20/24 17:30:
correction- Patient 73 years old not 69 during admission time.
Original Note:
Family Physician
-
Family Physician: Catina Romano
Chief Complaint
-
Abnormal Labs
History of Present Illness
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
Medical History
Past Medical History
Past Medical History: Reports Other
Additional Past Medical History:
Hypertension, hyperlipidemia, peritoneal cancer, diabetes, hypothyroidism, polymyalgia, BRCA2 positive
Past Surgical History: Reports Gynocological (Tube ligation, hysterectomy) and Tonsilectomy
Additional Past Surgical History:
Cataract surgery, rectal fistula surgery
Social History
Tobacco: Former Smoker
Alcohol: None
Drug: None
Family History
Family History: Not pertinent
Allergies / Home Medications
Allergies reflects when Allergies were last updated in [facility].
Home Medications with original date entered in [facility]
Allergy/Medication List:
Allergies
Allergy/AdvReac Type Severity Reaction Status Date / Time
lisinopril Allergy cough Verified 04/11/24 13:06
Home Medications
calcium carbonate 600 mg PO BID PRN Supplement 11/03/21
levothyroxine 100 mcg tablet 100 mcg PO MOTUWETHFR@0800 Thyroid 11/03/21
nateglinide 120 mg tablet 120 mg PO MEALS Diabetes 11/03/21
amlodipine 5 mg tablet 5 mg PO .SEE BELOW Blood Pressure 12/22/22
fluticasone propionate 50 mcg/actuation nasal spray,suspension 1 spray intranasal DAILY Allergies 03/21/24
lorazepam 0.5 mg tablet 0.5 mg PO HS Mental Health/Anxiety 03/21/24
losartan 50 mg tablet 100 mg PO DAILY Blood Pressure 03/21/24
metformin 500 mg tablet 1,000 mg PO BIDWMEAL Diabetes 03/21/24
metoclopramide HCl 5 mg tablet 5 mg PO BID Gastrointestinal Issue 03/21/24
rosuvastatin 10 mg tablet 10 mg PO DAILY High Cholesterol 03/21/24
cholecalciferol (vitamin D3) 25 mcg (1,000 unit) tablet 25 mcg PO DAILY Supplement 04/01/24
guaifenesin 600 mg tablet, extended release 12 hr 600 mg PO [id number] PRN cough 04/01/24
levothyroxine 100 mcg tablet 200 mcg PO SUSA@0800 Thyroid 04/01/24
Doxil 1 dose IV QMONTH 04/11/24
ondansetron 8 mg disintegrating tablet 8 mg PO Q8H PRN nausea/vomiting 04/11/24
promethazine-DM 6.25 mg-15 mg/5 mL oral syrup 5 ml PO QIDPRN PRN cough 04/11/24
Review of Systems
-
A 12 point ROS was completed and negative except as noted: Yes
Constitutional: Reports Fatigue
Respiratory: Denies Trouble Breathing
Cardiac: Denies Chest Pain
Abdomen/GI: Denies Abdominal Pain
Physical Exam
Vital Signs
Vital Signs
Temp Pulse Resp BP Pulse Ox
97.5 F 99 18 105/47 99
04/11/24 13:09 04/11/24 13:10 04/11/24 13:10 04/11/24 13:10 04/11/24 13:10
Physical Exam
General: Comfortable and Conversant
Respiratory: Clear
Cardiac: S1/S2 and Regular Rhythm
GI: Non Tender, Normal Bowel Sounds and Distended
Musculoskeletal: No Cyanosis
Neuro: AO x 3 and Nonfocal/grossly intact
Psych: Intact Judgment/Insight
Laboratory Results
-
04/11/24 14:34
04/11/24 14:34
Laboratory Results
Total Bilirubin 0.1 mg/dl (0.2-1.3) L 04/11/24 14:34
AST 28 U/L (14-36) 04/11/24 14:34
ALT 24 U/L (0-35) 04/11/24 14:34
Alkaline Phosphatase 102 U/L (38-126) 04/11/24 14:34
Data Reviewed
-
Medical Tests (Nuc Med, Echo, EKG etc): Image Personally Visualized and interpreted (Normal Sinus Rhythm , anterior infarct age undetermined)
Impression/Plan
-
IMPRESSION/PLAN:
#Hyperkalemia- Treated in ER.
Patient received sodium bicarbonate, dextrose and insulin, Lokelma
IVF
Repeat K later today
Low potassium diet
# Loose stools-check stool studies
# Acute kidney injury-likely secondary to GI losses-gentle IV fluids and follow
Check urinalysis and urine sodium
Hold losartan
# Primary Peritoneal Cancer Stage IIIC
History of debulking surgery with hysterectomy/bilateral salpingo-oophorectomy
# Recurrent Ascites- 2500 cc of serosanguineous ascitic fluid was removed 04/09/24
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
# Anemia-likely secondary to malignancy
# Hypertension-hold losartan, amlodipine
# Hyperlipidemia-continue rosuvastatin
# Hypothyroidism-continue Synthroid
# Diabetes-nateglinide, metformin with sliding scale coverage
# Anxiety-continue lorazepam
# Hypoalbuminemia
# Ex-smoker
#CODE STATUS-patient wants to be full code
Discussed with ER nurse
Discussed with patient's son at bedside
[2024-04-11] MEDS: NOVOLOG vial 4 UNITS SC (16:07)
[2024-04-11] MEDS: DEXTROSE 50% SYRINGE 12.5 GRAMS IV (16:10)
[2024-04-11] MEDS: LOKELMA 10 GRAM PO (16:10)
[2024-04-11] MEDS: SODIUM BICARBONATE 50 MEQ IV (16:10)
[2024-04-11 17:43] LABS: Vitamin D, 25-OH*** 23.3 ng/mL (30-80)
[2024-04-11 17:47] LABS: Glucose - Point of Care 57 mg/dl (70-99)
[2024-04-11 18:04] LABS: Glucose - Point of Care 79 mg/dl (70-99)
[2024-04-11] MEDS: GLUCOPHAGE PO (18:16)
[2024-04-11] MEDS: NOVOLOG FLEXPEN-LOW RESISTANCE SC (18:16)
[2024-04-11] MEDS: NSS 1000 IV (18:17)
--- NOTE | 2024-04-11 20:18 | W.PN.UPDATE ---
Update Note
Progress Note Update
RN notified CHOCOLATE TEMPERER BP of 85/49, manual 80/40 HR 91. Patient asymptomatic at present, on NSS @ 40 cc/her. Hx of Ascites, HTN on amlodipine 5mg and Losartan 100mg PO. which she took at home per records. Will give Midodrine 5mg PO now. Antihypertensives
are on hold at present.
BP 103/56 HR 80 at 0300
[2024-04-11 20:19] LABS: Urine Albumin Negative (Neg - Trace); Urine Bilirubin 1+ (Negative); Urine Character Clear (Clear); Urine Color Yellow; Urine Glucose Negative (Negative); Urine Ketone Trace (Negative); Urine Leukocyte Negative (Negative); Urine Nitrite Negative (Negative); Urine Occult Blood Negative (Negative); Urine Urobilinogen Negative (Neg - 1+)
[2024-04-11 20:34] LABS: Urine Sodium 33 mmol/L (30-90)
[2024-04-11] MEDS: HEPARIN 5000 UNITS SC (20:51)
[2024-04-11] MEDS: ProAmatine 5 MG PO (20:51)
[2024-04-11] MEDS: REGLAN 5 MG PO (20:51)
[2024-04-11 21:40] LABS: Potassium 5.4 mmol/L (3.5-5.1)
[2024-04-11 21:52] LABS: Glucose - Point of Care 100 mg/dl (70-99)
[2024-04-11] MEDS: ATIVAN PO (22:39)
--- NOTE | 2024-04-11 22:39 | PTCARENOTE ---
@1943 ;BP=85/49,telemonitor = NSR w/rate 91.Pt oriented x3 but tired.Instructed JORGE Mars on above note.@2016 ;Instructed JORGE Mars manual BP=80/40.Pt is not symptomatic in bed.Pt stated,'when I used the commode I was a little dizzy'.Pt
instructed to remain in bed tonight and use bedpan.Midodrine 5mg po order and administered.@@2235 BP manual =90/54 ,HR= 76. Ofe PATEL notified verbally .
[2024-04-12 03:05] VITALS: BP 103/56
[2024-04-12 04:52] LABS: % Basophils 0.4 % (0-2); % Eosinophils 1.1 % (0-6); % Immature Granulocytes 1.2 % (0-0.5); % Lymphocytes 15.9 % (20.5-51.1); % Monocytes 7.4 % (1.7-9.3); Absolute Eosinophils 0.1 10^3/uL (0-0.7); Absolute Immature Granulocytes 0.1 10^3/uL (0-0.05); Absolute Lymphocytes 1.5 10^3/uL (1.2-3.4); Absolute Monocytes 0.7 10^3/uL (0.1-0.6); Absolute Neutrophils 6.9 10^3/uL (1.4-6.5); Hematocrit 27.4 % (37.0-47.0); Hemoglobin 8.8 g/dL (12.0-16.0); Mean Corp Hgb Conc. 32.1 g/dL (33.0-37.0); Mean Corpuscular Hgb 31.5 pg (27.0-31.0); Mean Corpuscular Volume 98.2 fL (81.0-99.0); Mean Platelet Volume 9.3 fL (7.4-10.4); Nucleated Red Blood Cells % 0 %; Platelet Count 313 10^3/uL (130-400); Red Blood Cell Count 2.79 10^6/uL (4.20-5.40); Red Cell Dist. Width 14.1 % (11.5-14.5); White Blood Cell Count 9.4 10^3/uL (4.8-10.8)
[2024-04-12 05:07] LABS: Blood Urea Nitrogen 38 mg/dl (7-17); Calcium 7.7 mg/dl (8.4-10.2); Carbon Dioxide 18 mmol/L (22-30); Chloride 113 mmol/L (98-107); Estimated Creatinine Clearance 41 ml/min; Glucose 110 mg/dl (70-99); Magnesium 1.6 mg/dl (1.6-2.3); Potassium 5.7 mmol/L (3.5-5.1); Sodium 135 mmol/L (135-145); eGFR > 60.00
[2024-04-12 05:55] LABS: Vitamin B12 > 1000 pg/ml (239-931)
[2024-04-12] MEDS: SYNTHROID 100 MCG PO (06:36)
[2024-04-12 07:00] VITALS: BP 113/59
[2024-04-12 08:31] LABS: Glucose - Point of Care 163 mg/dl (70-99)
[2024-04-12] MEDS: VITAMIN D3 (cholecalciferol) 25 MCG PO (09:27)
[2024-04-12] MEDS: CRESTOR 10 MG PO (09:27)
[2024-04-12] MEDS: REGLAN 5 MG PO ×2 (09:28→21:36)
[2024-04-12] MEDS: HEPARIN 5000 UNITS SC (09:30)
[2024-04-12] MEDS: GLUCOPHAGE 1000 MG PO ×2 (09:30→17:35)
[2024-04-12] MEDS: NOVOLOG FLEXPEN-LOW RESISTANCE SC ×2 (09:33→12:02)
[2024-04-12 11:00] VITALS: BP 113/70
[2024-04-12 11:53] LABS: Glucose - Point of Care 112 mg/dl (70-99)
--- NOTE | 2024-04-12 12:00 | CON.ONC ---
Impression
Impression
hyperkalemia
primary peritoneal carcinoma
recurrent ascites
Plan
Plan
1. Hyperkalemia -
-potential contributing etiology could be related to fluid shifts w/ ascites and frequent need for paracentesis - renal function appears to be near baseline
-potassium improved following interventions - but remains elevated at 5.7
-could consider nephrology consultation if continues to be elevated
2. Primary peritoneal carcinoma - recurrent ascites
-s/p 1st tx w/ Doxil - 03/27
-CBC reveals stable hemoglobin, normal WBC and platelet count
-f/u w/ Dr. Lyons for additional management once acute issues resolved
Will continue to follow with you.
Patient History
History of Present Illness
73y/o female seen in oncology consultation today regarding h/o primary peritoneal carcinoma, currently being tx w/ Doxil under the care of Dr. Lyons. She received her 1st cycle on 03/27.
She underwent CMP 04/10 revealing potassium level of 6.5 in the context of mild acute kidney injury w/ creatinine of 1.18, up from baseline 0.7 - 0.8, prompting referral to the [facility] [place] [facility]. She was treated w/ sodium bicarbonate, dextrose
and insulin, and Lokelma on presentation. Potassium level today is improved - 5.7. Creatinine is down to baseline 0.9.
Clinically, she feels better. She notes she has chronic diarrhea. She denies nausea/vomiting. She has baseline abdominel distention w/ ascites. She last underwent paracentesis on 04/09. She denies pain.
Past-Medical/Surgical History
PMH:
primary peritoneal carcinoma - [place] refractory - s/p Doxil 03/27 - followed by Dr. Lyons
recurrent ascites
HTN
hyperlipidemia
hypothyroidism
DM
PSH:
gynecological surgery - debulking
CHAVEZ/BSO
SH: former tobacco user
FH: noncontributory
Allergies: lisinopril
Patient Medication
�Medication �Instructions �Recorded �Confirmed �Last Taken �Type
calcium carbonate 600 mg PO BID PRN Supplement 11/03/21 04/11/24 1 Week Ago History
~04/04/24
levothyroxine 100 mcg tablet 100 mcg PO MOTUWETHFR@0800 Thyroid 11/03/21 04/11/24 04/11/24 History
nateglinide 120 mg tablet 120 mg PO MEALS Diabetes 11/03/21 04/11/24 04/11/24 History
amlodipine 5 mg tablet 5 mg PO .SEE BELOW Blood 12/22/22 04/11/24 3 Days Ago History
Pressure ~04/08/24
fluticasone propionate 50 1 spray intranasal DAILY Allergies 03/21/24 04/11/24 04/11/24 History
mcg/actuation nasal
spray,suspension
lorazepam 0.5 mg tablet 0.5 mg PO HS Mental Health/Anxiety 03/21/24 04/11/24 04/10/24 History
losartan 50 mg tablet 100 mg PO DAILY Blood Pressure 03/21/24 04/11/24 04/11/24 History
metformin 500 mg tablet 1,000 mg PO BIDWMEAL Diabetes 03/21/24 04/11/24 04/11/24 History
metoclopramide HCl 5 mg tablet 5 mg PO BID Gastrointestinal Issue 03/21/24 04/11/24 04/11/24 History
rosuvastatin 10 mg tablet 10 mg PO DAILY High Cholesterol 03/21/24 04/11/24 04/11/24 History
cholecalciferol (vitamin D3) 25 25 mcg PO DAILY Supplement 04/01/24 04/11/24 04/11/24 History
mcg (1,000 unit) tablet
guaifenesin 600 mg tablet, 600 mg PO [id number] PRN cough 04/01/24 04/11/24 2 Days Ago History
extended release 12 hr ~04/09/24
levothyroxine 100 mcg tablet 200 mcg PO SUSA@0800 Thyroid 04/01/24 04/11/24 04/07/24 History
Doxil 1 dose IV QMONTH Cancer 04/11/24 04/11/24 03/27/24 History
ondansetron 8 mg disintegrating 8 mg PO Q8H PRN nausea/vomiting 04/11/24 04/11/24 04/11/24 History
tablet
promethazine-DM 6.25 mg-15 mg/5 mL 5 ml PO QIDPRN PRN cough 04/11/24 04/11/24 04/11/24 History
oral syrup
Active Medications
Generic Name Dose Route Start Last Admin
Trade Name Freq PRN Reason Stop Dose Admin
Bisacodyl 10 mg 04/11/24 17:35
Bisacodyl 10 Mg Rectal Suppository RECTAL 05/09/24 17:34
[id number] PRN
constipation
Calcium Carbonate 500 mg 04/11/24 18:03
Calcium Carbonate 500 Mg Tablet PO 05/09/24 18:02
BIDPRN PRN
Supplement
Cholecalciferol 25 mcg 04/12/24 08:00 04/12/24 09:27
Cholecalciferol (Vitamin D3) 25 Mcg Tablet (1,000 Units) PO 05/10/24 07:59 25 mcg
DAILY MARIA INES Administration
Dextrose 12.5 grams 04/11/24 17:35
Dextrose 50% (0.5 Grams/Ml) 50 Ml Syringe IV 05/09/24 17:34
[id number] PRN
hypoglycemia
Protocol
Glucagon 1 mg 04/11/24 17:35
Glucagon 1 Mg Vial IM 05/09/24 17:34
PRN PRN
hypoglycemia
Protocol
Guaifenesin 600 mg 04/11/24 17:35
Guaifenesin 600 Mg Extended Release Tablet PO 05/09/24 17:34
[id number] PRN
cough
Guaifenesin/Dextromethorphan 5 ml 04/11/24 18:20
Guaifenesin/Dextromethorphan 200 Mg/10 Ml Cup PO 05/09/24 18:19
QIDPRN PRN
cough
Heparin Sodium 5,000 units 04/11/24 20:00 04/12/24 09:30
Heparin 5,000 Units/Ml 1 Ml Vial SC 05/09/24 19:59 5,000 units
Q12 MARIA INES Administration
Heparin Sodium (Porcine) 500 unit 04/11/24 17:50
Heparin Flush Pf (100 Unit/Ml) 5 Ml Syringe IV 05/09/24 17:49
PRN PRN
SC PORT FLUSH
Sodium Chloride 1,000 mls @ 40 mls/hr 04/11/24 17:35 04/11/24 18:17
Nss IV 04/12/24 18:34 1,000 mls
.Q24H MARIA INES Administration
Insulin Aspart 0 units 04/11/24 17:35 04/12/24 09:33
Insulin Aspart Low Resistance 300 Units/3 Ml Pen.Injctr SC 05/09/24 17:34 Not Given
AC MARIA INES
Protocol
Levothyroxine Sodium 100 mcg 04/12/24 06:00 04/12/24 06:36
Levothyroxine 100 Mcg Tablet PO 05/10/24 05:59 100 mcg
MoTuWeThFr@0600 MARIA INES Administration
Levothyroxine Sodium 200 mcg 04/13/24 06:00
Levothyroxine 200 Mcg Tablet PO 05/11/24 05:59
SuSa@0600 MARIA INES
Lorazepam 0.5 mg 04/11/24 22:00 04/11/24 22:39
Lorazepam 0.5 Mg Tablet PO 05/09/24 21:59 Not Given
HS MARIA INES
Metformin HCl 1,000 mg 04/11/24 18:00 04/12/24 09:30
Metformin 1000 Mg Regular Release Tablet PO 05/09/24 17:59 1,000 mg
BID AT 0800,1700 MARIA INES Administration
Metoclopramide HCl 5 mg 04/11/24 20:00 04/12/24 09:28
Metoclopramide 5 Mg Tablet PO 05/09/24 19:59 5 mg
BID MARIA INES Administration
Nateglinide 120 Mg 0 mg 04/11/24 17:35
Tablet Po Ac PO 05/09/24 17:34
AC MARIA INES
Polyethylene Glycol 17 grams 04/11/24 17:35
Polyethylene Glycol Powder 17 Grams Packet PO 05/09/24 17:34
DAILYPRN PRN
constipation
Rosuvastatin Calcium 10 mg 04/12/24 08:00 04/12/24 09:27
Rosuvastatin (Crestor) 10 Mg Tablet PO 05/10/24 07:59 10 mg
DAILY MARIA INES Administration
Senna/Docusate Sodium 1 tablet 04/11/24 17:35
Docusate W/Senna (Huma-Colace) Tablet PO 05/09/24 17:34
BIDPRN PRN
constipation
Sodium Chloride 0 flush 04/11/24 18:00
Sodium Chloride 0.9% (Flush) Syringe IV 05/09/24 17:59
PER PROTOCOL MARIA INES
Review of Systems
-
A full ROS was performed w/ pertinent findings as per HPI.
Physical Exam
-
General: Appears Chronically Ill
HEENT: Negative Jaundice
Cardiology: Normal Sinus Rhythm
Pulmonary: Clear
GI: Soft, Distended and Other (ascites)
Neurology: Non Focal
Labs
Lab Results
WBC 9.4 10^3/uL (4.8-10.8) 04/12/24 04:25
RBC 2.79 10^6/uL (4.20-5.40) L 04/12/24 04:25
Hgb 8.8 g/dL (12.0-16.0) L 04/12/24 04:25
Hct 27.4 % (37.0-47.0) L 04/12/24 04:25
MCV 98.2 fL (81.0-99.0) 04/12/24 04:25
MCH 31.5 pg (27.0-31.0) H 04/12/24 04:25
MCHC 32.1 g/dL (33.0-37.0) L 04/12/24 04:25
RDW 14.1 % (11.5-14.5) 04/12/24 04:25
Plt Count 313 10^3/uL (130-400) 04/12/24 04:25
MPV 9.3 fL (7.4-10.4) 04/12/24 04:25
Abs Immat Gran (auto) 0.1 10^3/uL (0-0.05) H 04/12/24 04:25
Absolute Neuts (auto) 6.9 10^3/uL (1.4-6.5) H 04/12/24 04:25
Absolute Lymphs (auto) 1.5 10^3/uL (1.2-3.4) 04/12/24 04:25
Absolute Monos (auto) 0.7 10^3/uL (0.1-0.6) H 04/12/24 04:25
Absolute Eos (auto) 0.1 10^3/uL (0-0.7) 04/12/24 04:25
Absolute Basos (auto) 0.0 10^3/uL (0-0.2) 04/12/24 04:25
Immature Gran % 1.2 % (0-0.5) H 04/12/24 04:25
Neutrophils % 74.0 % (42.2-75.2) 04/12/24 04:25
Lymphocytes % 15.9 % (20.5-51.1) L 04/12/24 04:25
Monocytes % 7.4 % (1.7-9.3) 04/12/24 04:25
Eosinophils % 1.1 % (0-6) 04/12/24 04:25
Basophils % 0.4 % (0-2) 04/12/24 04:25
Creatinine 0.9 mg/dL (0.6-1.0) 04/12/24 04:25
Vital Signs
Vital Signs
Temp Pulse Resp BP Pulse Ox
98.3 F 92 16 113/59 97
04/12/24 07:00 04/12/24 07:00 04/12/24 07:00 04/12/24 07:00 04/12/24 07:00
--- NOTE | 2024-04-12 12:35 | W.PN.HOSP.TC ---
Today's Communication/Plan
-
Start on Lokelma. Hold losartan. Repeat labs in AM.
DC in a.m. if improved potassium.
Assessment / Plan
Assessment / Plan
#Hyperkalemia -suspect repeated paracentesis causing renal dysfunction and with the use of JENNYFER inhibitor's the potassium is elevated. She had more need a paracentesis on admission her creatinine was up and as well as she was more acidotic raising
concern for KAT. She had a treatments in the ER with improvement. Potassium still remains high at 5.7-start Lokelma. Continue to hold losartan and with current blood pressure reading I do not see further need of losartan going forward.
# Acute kidney injury
There was question about increased GI loses.No diarrhea today.
Improved
Hold losartan
# Primary Peritoneal Cancer Stage IIIC
History of debulking surgery with hysterectomy/bilateral salpingo-oophorectomy
# Recurrent Ascites- sec to above. 2500 cc of serosanguineous ascitic fluid was removed 04/09/24
# Anemia-likely secondary to malignancy
# Hypertension-hold losartan, amlodipine
# Hyperlipidemia-continue rosuvastatin
# Hypothyroidism-continue Synthroid
# Diabetes-nateglinide, metformin with sliding scale coverage
# Anxiety-continue lorazepam
# Hypoalbuminemia
# Ex-smoker
#CODE STATUS-patient wants to be full code
Anticipated Discharge: Within 24 hours
Subjective/Interval History
-
Date of Service: April 12, 2024
Feels generally tried for sometime now.
Now needing frequent need of paracentesis.
Patient with recent issues of hypotension so amlodipine was kept on hold but she continues to take losartan.
Objective Data
-
Labs:
Laboratory Results
04/12/24
04:25
WBC 9.4
Hgb 8.8 L
Hct 27.4 L
Plt Count 313
Sodium 135
Potassium 5.7 H
Chloride 113 H
Carbon Dioxide 18 L
BUN 38 H
Creatinine 0.9
Glucose 110 H
Calcium 7.7 L
Vital Signs:
Vital Signs
Temp Pulse Resp BP Pulse Ox
98.3 F 102 16 113/70 98
04/12/24 11:00 04/12/24 11:00 04/12/24 11:00 04/12/24 11:00 04/12/24 11:00
I&O
04/11/24 04/12/24 04/13/24
06:59 06:59 06:59
Intake Total 600 / 600
Balance 600 / 600
Review of Systems
-
Constitutional: Denies Fever
Respiratory: Denies Trouble Breathing
Cardiac: Denies Chest Pain
Abdomen/GI: Reports Nausea (a bit but tolerating diet)
Neuro: Denies Dizzy
Physical Exam
-
General: No Apparent Distress
HEENT: Moist Mucous Membranes
Respiratory: Clear to Auscultation
Cardiac: Regular Rhythm and S1/S2
GI: Soft, Nontender, Normal Bowel Sounds and Distended (ascites)
Neuro: AO x 3
Psych: Calm
Data Reviewed
-
Labs: Labs Reviewed by me
[2024-04-12] MEDS: LOKELMA 10 GRAM PO ×2 (14:47→17:35)
[2024-04-12 15:00] VITALS: BP 126/74
[2024-04-12 15:41] LABS: Glucose - Point of Care 160 mg/dl (70-99)
--- NOTE | 2024-04-12 16:24 | CM ---
Met with pt at bedside
Lives with her in a 1 story condo with elevator access
Normally independent. Being treated for cancer. Some assist needed with around house
DME - none
SNF - denies
HH - in past - [facility]
Has ride at d/c
PCP - Dr Stephen King
Pharm - [facility]
CM will follow for d/c needs
Plan - anticipate home no needs vs with HH
[2024-04-12] MEDS: NOVOLOG FLEXPEN-LOW RESISTANCE 1 UNITS SC (18:01)
[2024-04-12 19:00] VITALS: BP 105/63
[2024-04-12] MEDS: ATIVAN 0.5 MG PO (21:36)
[2024-04-12] MEDS: HEPARIN SC (21:39)
[2024-04-12] MEDS: NSS IV (21:47)
[2024-04-12 21:51] LABS: Glucose - Point of Care 114 mg/dl (70-99)
[2024-04-12 23:00] VITALS: BP 109/57
[2024-04-13 03:00] VITALS: BP 98/58
[2024-04-13 05:12] LABS: Hematocrit 28.2 % (37.0-47.0); Hemoglobin 9.1 g/dL (12.0-16.0); Mean Corp Hgb Conc. 32.3 g/dL (33.0-37.0); Mean Corpuscular Hgb 31.3 pg (27.0-31.0); Mean Corpuscular Volume 96.9 fL (81.0-99.0); Platelet Count 344 10^3/uL (130-400); Red Blood Cell Count 2.91 10^6/uL (4.20-5.40); Red Cell Dist. Width 14.1 % (11.5-14.5); White Blood Cell Count 9.7 10^3/uL (4.8-10.8)
[2024-04-13 05:36] LABS: Blood Urea Nitrogen 32 mg/dl (7-17); Calcium 7.5 mg/dl (8.4-10.2); Carbon Dioxide 19 mmol/L (22-30); Chloride 111 mmol/L (98-107); Estimated Creatinine Clearance 46 ml/min; Glucose 125 mg/dl (70-99); Sodium 136 mmol/L (135-145); eGFR > 60.00
[2024-04-13] MEDS: LOKELMA 10 GRAM PO (06:00)
[2024-04-13] MEDS: REGLAN 5 MG PO ×2 (06:12→19:57)
[2024-04-13] MEDS: SYNTHROID 200 MCG PO (07:25)
[2024-04-13 07:28] VITALS: BP 116/75
[2024-04-13 07:28] LABS: Glucose - Point of Care 186 mg/dl (70-99)
[2024-04-13] MEDS: GLUCOPHAGE 1000 MG PO ×2 (08:14→16:56)
[2024-04-13] MEDS: VITAMIN D3 (cholecalciferol) 25 MCG PO (08:14)
[2024-04-13] MEDS: HEPARIN 5000 UNITS SC ×2 (08:14→19:57)
[2024-04-13] MEDS: NOVOLOG FLEXPEN-LOW RESISTANCE 1 UNITS SC (08:15)
[2024-04-13] MEDS: CRESTOR 10 MG PO (08:17)
[2024-04-13] MEDS: MUCINEX 600 MG PO (08:17)
--- NOTE | 2024-04-13 10:06 | W.PN.HOSP.TC ---
Today's Communication/Plan
-
Add Zofran
Add Miralax
Check wt
Assessment / Plan
Assessment / Plan
#Hyperkalemia -suspect repeated paracentesis causing renal dysfunction and with the use of JENNYFER inhibitor's the potassium is elevated. She had more need a paracentesis on admission her creatinine was up and as well as she was more acidotic raising
concern for KAT. She had a treatments in the ER with improvement. Potassium remained high at 5.7 nedding Lokelma. Normalized potassium. Hold further Lokelma.
Continue to hold losartan and with current blood pressure reading I do not see further need of losartan going forward.
# Acute kidney injury
There was question about increased GI loses.No diarrhea And in fact constipated
resolved
Hold losartan
# Primary Peritoneal Cancer Stage IIIC
History of debulking surgery with hysterectomy/bilateral salpingo-oophorectomy
# Recurrent Ascites- sec to above. 2500 cc of serosanguineous ascitic fluid was removed 04/09/24 . Check her weight and if significant weight gain and continued abdo discomfort despite tx constipation and nausea,will arrange for a tap if possible
over the weekend otherwise Monday
# Anemia-likely secondary to malignancy
# Hypertension-hold losartan, amlodipine
# Hyperlipidemia-continue rosuvastatin
# Hypothyroidism-continue Synthroid
# Diabetes-nateglinide, metformin with sliding scale coverage
# Anxiety-continue lorazepam
# Hypoalbuminemia
# Ex-smoker
#CODE STATUS-patient wants to be full code
Anticipated Discharge: Today
Subjective/Interval History
-
Date of Service: April 13, 2024
feeling bit nauseous today. Has not had a bowel movement since .
Feels her abdomen is much bigger today. Due for scheduled paracentesis on Monday next week. She gets weekly paracentesis now.
Objective Data
-
Labs:
Laboratory Results
04/13/24
04:35
WBC 9.7
Hgb 9.1 L
Hct 28.2 L
Plt Count 344
Sodium 136
Potassium 5.0
Chloride 111 H
Carbon Dioxide 19 L
BUN 32 H
Creatinine 0.8
Glucose 125 H
Calcium 7.5 L
Vital Signs:
Vital Signs
Temp Pulse Resp BP Pulse Ox
98.4 F 97 19 116/75 98
04/13/24 07:28 04/13/24 07:28 04/13/24 07:28 04/13/24 07:28 04/13/24 07:28
I&O
04/12/24 04/13/24 04/14/24
06:59 06:59 06:59
Intake Total 600 / 600 500 / 500 360 / 360
Balance 600 / 600 500 / 500 360 / 360
Review of Systems
-
Constitutional: Denies Fever or Chills
Respiratory: Denies Trouble Breathing
Cardiac: Denies Chest Pain
Neuro: Denies Dizzy
Physical Exam
-
General: No Apparent Distress
HEENT: Moist Mucous Membranes
Respiratory: Clear to Auscultation
Cardiac: Regular Rhythm and S1/S2
GI: Soft, Nontender, Normal Bowel Sounds and Distended
Neuro: AO x 3
Psych: Calm
Data Reviewed
-
Labs: Labs Reviewed by me
[2024-04-13 11:04] VITALS: BP 120/79
[2024-04-13] MEDS: ZOFRAN 4 MG IV ×2 (11:12→17:21)
[2024-04-13] MEDS: MIRALAX 17 GRAMS PO (11:13)
[2024-04-13 11:28] VITALS: BMI 21.2
[2024-04-13] MEDS: NOVOLOG FLEXPEN-LOW RESISTANCE SC ×2 (12:43→16:56)
[2024-04-13 12:47] LABS: Glucose - Point of Care 131 mg/dl (70-99)
[2024-04-13 15:45] VITALS: BP 110/63
--- NOTE | 2024-04-13 16:22 | PTCARENOTE ---
This nurse found pt with large distended abdomen with ascitic look. ABD non tender to touch, soft, dec BS, +flatus + nausea + vomiting. notified and zofran ordered and given, PT very uncomfortable and requesting paracentesis. stated it can
only be done on monday. Weight completed and daughter very stressed out about the rapid gain in abdominal distention and weight. MD notified and put in IR Consult and will evaluate her in am. PT is resting in bed, with call courtney in hand. Pt
educated about IR being consulted and stated whe was happy with this
[2024-04-13 16:56] LABS: Glucose - Point of Care 131 mg/dl (70-99)
[2024-04-13 19:00] VITALS: BP 124/76
[2024-04-13] MEDS: ATIVAN 0.5 MG PO (21:41)
[2024-04-13 21:45] LABS: Glucose - Point of Care 149 mg/dl (70-99)
[2024-04-13 23:00] VITALS: BP 112/65
[2024-04-14] VITALS (8 sets, daily range): BP systolic 95–124; BP diastolic 53–77; BMI 21.4
[2024-04-14] MEDS: SYNTHROID 200 MCG PO (05:45)
[2024-04-14] MEDS: ZOFRAN 4 MG IV ×2 (05:50→13:27)
[2024-04-14] MEDS: VITAMIN D3 (cholecalciferol) 25 MCG PO (08:05)
[2024-04-14] MEDS: CRESTOR 10 MG PO (08:05)
[2024-04-14] MEDS: GLUCOPHAGE 1000 MG PO ×2 (08:05→17:04)
[2024-04-14] MEDS: HEPARIN 5000 UNITS SC ×2 (08:05→21:22)
[2024-04-14] MEDS: REGLAN 5 MG PO ×2 (08:05→21:27)
[2024-04-14] MEDS: MIRALAX 17 GRAMS PO (08:06)
[2024-04-14 08:11] LABS: Glucose - Point of Care 128 mg/dl (70-99)
[2024-04-14] MEDS: NOVOLOG FLEXPEN-LOW RESISTANCE SC ×2 (08:16→12:33)
--- NOTE | 2024-04-14 10:46 | W.PN.HOSP.TC ---
Today's Communication/Plan
-
Abdominal x-ray. Add Dulcolax. IR consulted for paracentesis.
Assessment / Plan
Assessment / Plan
#Hyperkalemia -suspect repeated paracentesis causing renal dysfunction and with the use of JENNYFER inhibitor's the potassium is elevated. She had more need a paracentesis on admission her creatinine was up and as well as she was more acidotic raising
concern for KAT. She had a treatments in the ER with improvement. Potassium remained high at 5.7 nedding Lokelma. Normalized potassium. Hold further Lokelma.
Continue to hold losartan and with current blood pressure reading I do not see further need of losartan going forward.
# Acute kidney injury
There was question about increased GI loses.No diarrhea And in fact constipated
resolved
Hold losartan
# Primary Peritoneal Cancer Stage IIIC
History of debulking surgery with hysterectomy/bilateral salpingo-oophorectomy
# Recurrent Ascites- sec to above. 2500 cc of serosanguineous ascitic fluid was removed 04/09/24 . Increasing abdominal distention. Consult IR for paracentesis inpatient. Also obtaining plain abdominal x-ray to rule out ileus or partial small
bowel obstruction. She is passing flatus but no bowel movement yet. She is still having nausea and poor appetite issues. Added Dulcolax to her bowel regimen.
# Anemia-likely secondary to malignancy
# Hypertension-hold losartan, amlodipine
# Hyperlipidemia-continue rosuvastatin
# Hypothyroidism-continue Synthroid
# Diabetes-nateglinide, metformin with sliding scale coverage
# Anxiety-continue lorazepam
# Hypoalbuminemia
# Ex-smoker
#CODE STATUS-patient wants to be full code
Anticipated Discharge: > 48 hours
Subjective/Interval History
-
Date of Service: April 14, 2024
Still complains of nausea and poor appetite. Passing flatus but no bowel movement yet.
Continued abdominal discomfort. She feels her abdomen is more distended than her baseline.
Objective Data
-
Labs:
Laboratory Results
04/14/24
10:42
WBC Pending
Hgb Pending
Hct Pending
Plt Count Pending
Vital Signs:
Vital Signs
Temp Pulse Resp BP Pulse Ox
97.8 F 96 18 112/77 98
04/14/24 07:50 04/14/24 07:50 04/14/24 07:50 04/14/24 07:50 04/14/24 07:50
I&O
04/13/24 04/14/24 04/15/24
06:59 06:59 06:59
Intake Total 500 / 500 1500 / 1500
Balance 500 / 500 1500 / 1500
Review of Systems
-
Constitutional: Denies Fever
Respiratory: Denies Trouble Breathing
Cardiac: Denies Chest Pain
Neuro: Denies Dizzy
Physical Exam
-
General: No Apparent Distress
HEENT: Moist Mucous Membranes
Respiratory: Clear to Auscultation
Cardiac: Regular Rhythm and S1/S2
GI: Soft, Normal Bowel Sounds and Distended; Negative Nontender (General discomfort from distension;no rebound)
Neuro: AO x 3
[2024-04-14] MEDS: DULCOLAX 10 MG RECTAL (11:40)
[2024-04-14] MEDS: NSS 1000 IV (11:40)
[2024-04-14 11:57] LABS: Glucose - Point of Care 135 mg/dl (70-99)
[2024-04-14 12:33] LABS: Hematocrit 31.8 % (37.0-47.0); Hemoglobin 10.6 g/dL (12.0-16.0); Mean Corp Hgb Conc. 33.3 g/dL (33.0-37.0); Mean Corpuscular Hgb 31.4 pg (27.0-31.0); Mean Corpuscular Volume 94.1 fL (81.0-99.0); Mean Platelet Volume 8.7 fL (7.4-10.4); Platelet Count 407 10^3/uL (130-400); Red Blood Cell Count 3.38 10^6/uL (4.20-5.40); Red Cell Dist. Width 13.7 % (11.5-14.5); White Blood Cell Count 11.4 10^3/uL (4.8-10.8)
--- NOTE | 2024-04-14 15:22 | PTCARENOTE ---
PT sent down to IR [facility]
[2024-04-14 16:28] LABS: Glucose - Point of Care 146 mg/dl (70-99)
--- NOTE | 2024-04-14 16:38 | PTCARENOTE ---
ordered ducolox suppository. Suppository given as per MD Order. PT did not have any results. Pt was sent to IR for paracentesis and had abd xray after. Xray showed stool throughout. was notified of this through [facility]. will await
results.
[2024-04-14] MEDS: NOVOLOG FLEXPEN-LOW RESISTANCE 1 UNITS SC (17:03)
[2024-04-14 17:56] LABS: Body Fluid WBC 201 /CUMM
[2024-04-14 17:57] LABS: Body Fluid Mononuclear 83.5 %; Body Fluid Polymorphonuclear 16.5 %
[2024-04-14 18:04] LABS: Body Fluid Second Tech CF
--- NOTE | 2024-04-14 18:40 | PTCARENOTE ---
Pt received 300 ml of milk and molases as per MD order. PT had small brown bm. Pt assisted into the the bathroom with one assist.
[2024-04-14] MEDS: MIRALAX PO (21:22)
[2024-04-14] MEDS: ATIVAN 0.5 MG PO (21:23)
[2024-04-14 21:26] LABS: Glucose - Point of Care 170 mg/dl (70-99)
[2024-04-15] MEDS: NSS 1000 IV (03:43)
[2024-04-15 05:16] LABS: Blood Urea Nitrogen 28 mg/dl (7-17); Calcium 7.3 mg/dl (8.4-10.2); Carbon Dioxide 18 mmol/L (22-30); Chloride 110 mmol/L (98-107); Estimated Creatinine Clearance 46 ml/min; Glucose 137 mg/dl (70-99); Sodium 133 mmol/L (135-145); eGFR > 60.00
[2024-04-15] MEDS: SYNTHROID 100 MCG PO (05:53)
[2024-04-15 06:00] VITALS: BMI 20.2
[2024-04-15 07:38] VITALS: BP 102/59
[2024-04-15 07:41] LABS: Glucose - Point of Care 135 mg/dl (70-99)
[2024-04-15] MEDS: NOVOLOG FLEXPEN-LOW RESISTANCE SC (08:01)
[2024-04-15] MEDS: CRESTOR 10 MG PO (08:02)
[2024-04-15] MEDS: MIRALAX 17 GRAMS PO (08:03)
[2024-04-15] MEDS: GLUCOPHAGE 1000 MG PO (08:03)
[2024-04-15] MEDS: VITAMIN D3 (cholecalciferol) 25 MCG PO (08:03)
[2024-04-15] MEDS: HEPARIN 5000 UNITS SC (08:03)
[2024-04-15] MEDS: ZOFRAN 4 MG IV (08:05)
[2024-04-15] MEDS: REGLAN 5 MG PO (08:19)
--- NOTE | 2024-04-15 09:46 | W.PN.ONC2 ---
Today's Communication / Plan
-
Cleared for D/C
F/U Dr Lyons as outpt
Impression
Impression
hyperkalemia
primary peritoneal carcinoma
recurrent ascites
acute renal failure, resolved
Plan
Plan
Primary peritoneal carcinoma - recurrent ascites
-s/p 1st tx w/ Doxil - 03/27
-CBC reveals stable hemoglobin, normal WBC and platelet count
-f/u w/ Dr. Lyons for additional management once acute issues resolved. will discuss possibility of repeating 24-hr urine as outpt and resuming anti-VEGF to help control ascites
Cleared for d/c
Subjective/Objective
Chief Complaint
Heme/Onc follow up of primary peritoneal cancer, symptomatic ascites
Subjective
Feels much better today with having undergone paracentesis yesterday.
Vital Signs:
Vital Signs
Temp Pulse Resp BP Pulse Ox
97.6 F 87 16 102/59 98
04/15/24 07:38 04/15/24 07:38 04/15/24 07:38 04/15/24 07:38 04/15/24 07:38
Lab Results:
Laboratory Data
WBC 11.4 10^3/uL (4.8-10.8) H 04/14/24 12:03
Hgb 10.6 g/dL (12.0-16.0) L 04/14/24 12:03
Plt Count 407 10^3/uL (130-400) H 04/14/24 12:03
eGFR > 60.00 04/15/24 04:40
Physical Exam
Awake, alert, non-toxic appearing.
Lungs clear
Heart regular
Abd distended
Extrem no edema
Review of Systems
Review of Systems
Constitutional: Reports Fatigue; Denies Fever
Head: Denies Sore Throat or Hearing Loss
Respiratory: Denies Dyspnea or Cough
Cardiovascular: Denies Chest Pain or Palpitations
Gastrointestinal: Reports Diarrhea; Denies Nausea/Vomiting
Genitourinary: Denies Hematuria
Skin: Denies Rash or Pruritis
Neurological: Denies Headache or Numbness
Psychiatric: Denies Depression or Insomnia
Hem/Lymphatic: Denies Easy Bruising or Night Sweats
--- NOTE | 2024-04-15 10:50 | W.PN.HOSP.TC ---
Today's Communication/Plan
-
dc
Assessment / Plan
Assessment / Plan
#Hyperkalemia -suspect repeated paracentesis causing renal dysfunction and with the use of JENNYFER inhibitor's the potassium is elevated. She had more need a paracentesis on admission her creatinine was up and as well as she was more acidotic raising
concern for KAT. She had a treatments in the ER with improvement. Potassium remained high at 5.7 needing Lokelma. Normalized potassium. Hold further Lokelma.
Continue to hold losartan and with current blood pressure reading I do not see further need of losartan going forward.
# Acute kidney injury
There was question about increased GI loses.No diarrhea And in fact constipated
resolved
Hold losartan
# Primary Peritoneal Cancer Stage IIIC
History of debulking surgery with hysterectomy/bilateral salpingo-oophorectomy
# Recurrent Ascites- sec to above. 2500 cc of serosanguineous ascitic fluid was removed 04/09/24 . Increasing abdominal distention. s/p tap yesterday of ascitic fluid with no evidence of SBP based on cell count.Cx pending.
# Constipation - on bowel regimen ;had enema yesterday with some response -cw bowel regimen. Tolerating diet now
# Anemia-likely secondary to malignancy
# Hypertension-hold losartan, amlodipine
# Hyperlipidemia-continue rosuvastatin
# Hypothyroidism-continue Synthroid
# Diabetes-nateglinide, metformin with sliding scale coverage
# Anxiety-continue lorazepam
# Hypoalbuminemia
# Ex-smoker
#CODE STATUS-patient wants to be full code
With resolved GI symptoms and tolerating tolerating diet I feel she has reached medical stability for discharge. DC home today.
Discussed with patient about medication changes and follow-up plan.
DC time 32 minutes
Anticipated Discharge: Today
Subjective/Interval History
-
Date of Service: April 15, 2024
feeling much improved after ascites tap and enema. Had Small bowel movement.
No nausea. Tolerating diet. Feels better.
Objective Data
-
Labs:
Laboratory Results
04/15/24
04:40
Sodium 133 L
Potassium 5.0
Chloride 110 H
Carbon Dioxide 18 L
BUN 28 H
Creatinine 0.8
Glucose 137 H
Calcium 7.3 L
Vital Signs:
Vital Signs
Temp Pulse Resp BP Pulse Ox
97.6 F 87 16 102/59 98
04/15/24 07:38 04/15/24 07:38 04/15/24 07:38 04/15/24 07:38 04/15/24 07:38
I&O
04/14/24 04/15/24 04/16/24
06:59 06:59 06:59
Intake Total 1500 / 1500 1200 / 1200
Balance 1500 / 1500 1200 / 1200
Review of Systems
-
Constitutional: Denies Fever
Respiratory: Denies Trouble Breathing
Cardiac: Denies Chest Pain
Neuro: Denies Dizzy
Physical Exam
-
General: No Apparent Distress
HEENT: Moist Mucous Membranes
Respiratory: Clear to Auscultation
Cardiac: Regular Rhythm and S1/S2
GI: Soft and Nontender
Neuro: AO x 3
Psych: Calm
--- NOTE | 2024-04-15 10:56 | W.DS.TRANS ---
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
-
Discharge Instructions:
Discharge Diagnosis/Procedures hyperkalemia-suspect secondary to ARB and
recurrent ascites tap.
Recurrent malignant ascites
Diet 2 Gram Sodium
Activity As tolerated
Driving Restrictions As prior to admission
Bathing Restrictions None
Instructions:
Stand-Alone Forms:
Changes to Home Medications: Yes
Discharge Medications:
DC Medications w/original date entered in [facility]
calcium carbonate 600 mg PO BID PRN Supplement 11/03/21
levothyroxine 100 mcg tablet 100 mcg PO MOTUWETHFR@0800 Thyroid 11/03/21
nateglinide 120 mg tablet 120 mg PO MEALS Diabetes 11/03/21
fluticasone propionate 50 mcg/actuation nasal spray,suspension 1 spray intranasal DAILY Allergies 03/21/24
lorazepam 0.5 mg tablet 0.5 mg PO HS Mental Health/Anxiety 03/21/24
metformin 500 mg tablet 1,000 mg PO BIDWMEAL Diabetes 03/21/24
metoclopramide HCl 5 mg tablet 5 mg PO BID Gastrointestinal Issue 03/21/24
rosuvastatin 10 mg tablet 10 mg PO DAILY High Cholesterol 03/21/24
cholecalciferol (vitamin D3) 25 mcg (1,000 unit) tablet 25 mcg PO DAILY Supplement 04/01/24
guaifenesin 600 mg tablet, extended release 12 hr 600 mg PO [id number] PRN cough 04/01/24
levothyroxine 100 mcg tablet 200 mcg PO SUSA@0800 Thyroid 04/01/24
ondansetron 8 mg disintegrating tablet 8 mg PO Q8H PRN nausea/vomiting 04/11/24
promethazine-DM 6.25 mg-15 mg/5 mL oral syrup 5 ml PO QIDPRN PRN cough 04/11/24
docusate sodium 100 mg capsule (Colace) 100 mg PO DAILY #30 caps 04/15/24
polyethylene glycol 3350 17 gram oral powder packet (HealthyLax) 17 g PO DAILY #30 ea 04/15/24
Home Medication Changes
discontinue medication-losartan.
Pending Results: Yes ( Final cultures from ascitic fluid tap)
--- NOTE | 2024-04-15 11:31 | PTCARENOTE ---
Discharge instructions reviewed with patient and family member at bedside. No questions regarding discharge instructions. SubQ port de-accessed by VAT team. Transport called for wheelchair discharge; family member driving patient home.
--- NOTE | 2024-04-15 12:38 | CM ---
Family drove pt home.
Pt left before CM could speak with her.
PLAN Home no needs
--- NOTE | 2024-04-15 16:36 | W.DCSUMMARY ---
Discharge Summary
Discharge Data
Date of Admission: 04/11/24
Date of Discharge: 04/15/24
-
Pending Results: No
Hospital Course
Primary diagnosis:
Hyperkalemia suspected secondary to losartan use and need of recurrent paracentesis
Acute kidney injury again suspected secondary to losartan use and need of recurrent paracentesis.
Secondary diagnosis:
Recurrent ascites had another therapeutic tap on this admission
Primary peritoneal cancer on treatment
Hospital course:
Patient on outpatient labs which showed a evidence of severe hyperkalemia with a potassium of 6.5 and a creatinine duration of 1.2. She was on losartan. And she is getting more frequent paracentesis. Suspect Probably combination of renal
dysfunction from repeat paracentesis and then use of losartan was a issue. With initial ER treatments and Lokelma her potassium normalized. Creatinine as well normalized holding losartan. Her blood pressure reading has been under goal without any
antihypertensive treatments. Patient had stopped on her own the amlodipine prior to coming to the hospital and we stopped losartan and her blood pressure has been great. She needed another therapeutic paracentesis due to rapid reaccumulation.
There was no evidence of SBP based on cell count. Culture was pending. She had constipation for which she started on bowel regimen. While she was tolerating diet she was discharged home
Discharge Plan
-
Patient Disposition: Home (Routine Discharge)
Discharge Diagnosis/Procedures: hyperkalemia-suspect secondary to ARB and recurrent ascites tap.
Recurrent malignant ascites
Diet: 2 Gram Sodium
Activity: As tolerated
Driving Restrictions: As prior to admission
Bathing Restrictions: None
Referrals:
Catina Romano DO [Family Provider] - in less than 1 week
Prescriptions:
New
polyethylene glycol 3350 [HealthyLax] 17 gram Powder In Packet
17 g PO DAILY Qty: 30 0RF
docusate sodium [Colace] 100 mg capsule
100 mg PO DAILY Qty: 30 0RF
Continued
nateglinide 120 MG tablet
120 mg PO MEALS
Hold Instructions: Resume on 04/02/24. Check with your primary care physician by 03/25/24 regarding if and when you should resume this medication based on your blood sugar readings.
Patient Comments:
04/01/2024, last filled on 11/09/2023 for 90-day supply; however, pt. has not been eating many meals recently.
levothyroxine 100 MCG tablet
100 mcg PO MOTUWETHFR@0800
calcium carbonate 600 MG tablet
600 mg PO BID PRN (Reason: Supplement)
metformin 500 mg tablet
1,000 mg PO BIDWMEAL
lorazepam 0.5 mg tablet
0.5 mg PO HS
metoclopramide HCl 5 mg tablet
5 mg PO BID
fluticasone propionate 50 mcg/actuation spray,suspension
1 spray INTRANASAL DAILY
rosuvastatin 10 mg tablet
10 mg PO DAILY
levothyroxine 100 mcg Tablet
200 mcg PO SUSA@0800
cholecalciferol (vitamin D3) 25 mcg (1,000 unit) Tablet
25 mcg PO DAILY
guaifenesin 600 mg tablet extended release 12hr
600 mg PO [id number] PRN (Reason: cough)
promethazine-DM 6.25-15 mg/5 mL Syrup
5 ml PO QIDPRN PRN (Reason: cough)
ondansetron 8 mg Tablet,Disintegrating
8 mg PO Q8H PRN (Reason: nausea/vomiting)
Discontinued
amlodipine 5 mg Tablet
5 mg PO .SEE BELOW
Patient Comments:
04/11/2024, currently on hold per pt. because BP has been low lately. Pt. was taking once a day in the morning.
losartan 50 mg tablet
100 mg PO DAILY
Doxil
1 dose IV QMONTH
Patient Comments:
04/11/2024, gets this through [facility]; next dose is 04/24/2024 per pt.
Discharge Orders:
Discharge Patient (As Directed); Ordered 04/15/24
Ordered By: Los Moraes
Discharge Date and Time
Discharge Date/Time: 04/15/24 12:33
Print Language: FINNISH
== END 2024-04-15 12:33 | disposition home or self-care (01) | DRG 641 ==
LOC: 3 WEST ACU 16:59
PROVIDERS: Physician Assistant Medical; Radiology Vascular & Interventional Radiology; ADMITTING PHYSICIAN Hospitalist; ATTENDING PHYSICIAN Internal Medicine; EMERGENCY PHYSICIAN Emergency Medicine; FAMILY PHYSICIAN Internal Medicine; OTHER PHYSICIAN Internal Medicine Hematology & Oncology; REFERRING PHYSICIAN Internal Medicine Hematology & Oncology
PROC: 0W9G3ZZ Drainage of Peritoneal Cavity, Percutaneous Approach (ICD-10-PCS; 2024-04-14)
DX: E87.5 Hyperkalemia (principal); N17.9 Acute kidney failure, unspecified; C48.2 Malignant neoplasm of peritoneum, unspecified; R18.0 Malignant ascites; Z87.891 Personal history of nicotine dependence; D64.9 Anemia, unspecified; I10 Essential (primary) hypertension; E78.00 Pure hypercholesterolemia, unspecified; E03.9 Hypothyroidism, unspecified; Z79.84 Long term (current) use of oral hypoglycemic drugs; E11.9 Type 2 diabetes mellitus without complications; F41.9 Anxiety disorder, unspecified; E88.09 Other disorders of plasma-protein metabolism, not elsewhere classified; K59.00 Constipation, unspecified
CPT/HCPCS: 49083; 74019; 80048; 80053; 81003; 82306; 82607; 82962; 83735; 84132; 84300; 85025; 85027; 87015; 87045; 87046; 87070; 87205; 87324; 87427; 87449; 89051; 93005; 96372; 96374; 96375; 99285

== ENCOUNTER → 2024-04-19 12:12 | Outpatient (REF) | payer OTHER, SELFPAY ==
[2024-04-19 12:29] VITALS: BP 126/84; BP_SYST 105
[2024-04-19 13:09] VITALS: BP 117/70
[2024-04-19 15:01] LABS: Body Fluid WBC 359 /CUMM
[2024-04-19 15:02] LABS: Body Fluid Mononuclear 94.2 %; Body Fluid Polymorphonuclear 5.8 %
[2024-04-19 15:05] LABS: Body Fluid Second Tech DW
== END ==
LOC: RADI 12:12
PROVIDERS: ATTENDING PHYSICIAN Nurse Practitioner Family
DX: R18.8 Other ascites (principal)
CPT/HCPCS: 49083; 89051

== ENCOUNTER → 2024-04-24 07:04 | Outpatient (REF) | payer OTHER, SELFPAY ==
[2024-04-24 08:10] VITALS: BP 126/83; BP_SYST 88
[2024-04-24 08:45] VITALS: BP 107/69
[2024-04-24 10:43] LABS: Body Fluid Mononuclear 89.9 %; Body Fluid Polymorphonuclear 10.1 %; Body Fluid WBC 443 /CUMM
[2024-04-24 10:49] LABS: Body Fluid Second Tech SS
== END ==
LOC: RADI 07:04
PROVIDERS: ATTENDING PHYSICIAN Nurse Practitioner Family
DX: R18.8 Other ascites (principal)
CPT/HCPCS: 49083; 89051; 93306

== ENCOUNTER 2024-04-26 18:30 | Inpatient (IN) | payer OTHER, SELFPAY ==
[2024-04-26] VITALS (7 sets, daily range): BP systolic 96–128; BP diastolic 59–83; BMI 19.3
--- NOTE | 2024-04-26 13:21 | ED.GENMED ---
History of Present Illness
<Wolf Holcomb PA-C - Last Filed: 04/26/24 16:14>
General
Chief Complaint: Abnormal Lab Value
Source: patient
Time Seen by Provider: 04/26/24 13:14
Travel History
Have you had any contact with someone who has COVID-19?: No
Do you have any symptoms of coronavirus? Fever > 100 degrees, chills, cough, shortness of breath, sore throat, loss of taste or smell, muscle aches, or headache?: No
History of Present Illness
History of Present Illness:
74-year-old female with past medical history of ovarian/peritoneal cancer, hypertension, hyperlipidemia presenting to the emergency department for evaluation after she had outpatient labs done yesterday which showed she had a potassium of 2.6.
Patient states her last chemotherapy treatment was on March 27 and she was supposed to have another treatment yesterday but this was canceled as patient states she was post to have an EKG done prior but was unable to get this, did. She gets frequent
paracentesis noting she will get this done every 3 to 4 days but states she is also experiencing shortness of breath which is typical for her when she needs a paracentesis. She denies any fevers, chills, rigors, nausea, vomiting, bowel changes or
any other concerns presently.
Past History
<Wolf Holcomb PA-C - Last Filed: 04/26/24 16:14>
Past History
ED Past Medical History: Cancer (Primary peritoneal cancer.), HTN, Hypercholesterolemia, NIDDM and Hypothyroidism
ED Past Surgical History: Gynecological (Hysterectomy with debulking, tubal ligation), Tonsilectomy and Other
Social History
Tobacco: Non-smoker
Alcohol: Occasional
Drug: None
Personal:
Living: with family
Review of Systems
<Wolf Holcomb PA-C - Last Filed: 04/26/24 16:14>
Review of Systems
All Other Systems: ROS reviewed and negative except as documented in HPI and ROS
Phy Exam
<Wolf Holcomb PA-C - Last Filed: 04/26/24 16:14>
Physical Exam
Physical Exam:
GENERAL: Alert , thin, emaciated, unwell
EYE: clear conjunctiva b/l
HEAD: NCAT
ENT: o/p clr, mmm.
CARDIAC: Tachycardic rate and rhythm.
LUNGS: Clear breath sounds bilaterally, no acute respiratory distress, no wheezes/rales/rhonchi
ABDOMEN: Firm, distended, ascites noted
NEUROLOGICAL: Alert and oriented
SKIN: Warm and dry, skin intact.
MUSCULOSKELETAL: well perfused.
PSYCH: Normal and appropriate interaction.
Course
<Wolf Holcomb PA-C - Last Filed: 04/26/24 16:14>
Orders/Labs/Results
Orders:
Orders
04/26/24 13:14
Electrocardiogram (*1) Urgent
Reason for Study: Other
Other Reason for Exam: hyperkalemia
Cardiac Monitoring- Treatment ONCE
EKG- Treatment ONCE
04/26/24 13:32
Consult Interventional Radiology [IRAD CONSULT] Urgent
Consulting Provider: Brenden Goetz
Was physician already notified: Yes
Reason for Consult/Procedure: paracentesis
Acknowledgement that appropriate orders are entered: Yes
04/26/24 14:29
Alteplase [Cathflo/Activase] 2 mg IV NOW STA
04/26/24 14:49
Sterile Water [Sterile Water For Injection] 10 ml .ROUTE .[facility]-MED ONE
04/26/24 15:25
Body Fluid Cell Count Routine
What is the Body Fluid: Peritoneal fluid
Date Specimen was Collected: 04/26/24
Time Specimen was Collected: 15:23
04/26/24 16:21
Complete Blood Count/With Diff Urgent
Comprehensive Metabolic Panel Urgent
Magnesium Urgent
04/26/24 17:16
Dextrose 50%-Water [Dextrose 50% Syringe] 25 grams IV NOW STA
Insulin Human Regular [Novolin R] 4 units IV NOW STA
Sodium Zirconium Cyclosilicate [Lokelma] 10 gram PO NOW STA
04/26/24 17:46
0.9% Sodium Chloride 250 ml [Nss] 250 ml IV BOLUS
04/26/24 18:11
Admit/Transfer Patient As Directed
Co-Sign Provider:
Level of Care: Inpatient admission
Assign to:: Telemetry
Physician / Group: bob rizzo
Diagnosis: hyperkalemia
Reason for Telemetry: Other
Other Reason for Telemetry: hyperkalemia
Date to Stop Telemetry: 04/28/24
Time to Stop Telemetry: 11:00
Reason for Hospitalization: hyperkalemia
Expected length of stay greater than two midnights?: Yes
ELOS- Estimated Length of Stay in days: 3
I certify the patient meets the requirements for IP care: Yes
04/26/24 18:13
Code Status As Directed
Resuscitation Status: Full Code
04/26/24 19:12
0.9% Sodium Chloride 1000 ml [Nss] 1,000 ml IV 75 mls/hr
Acetaminophen [Tylenol] 650 mg PO Q4HPRN PRN
Bisacodyl [Dulcolax] 10 mg RECTAL [id number] PRN
Dextrose 50%-Water [Dextrose 50% Syringe] 12.5 grams IV [id number] PRN
Docusate W/Senna [Senokot-S] 1 tablet PO BIDPRN PRN
Glucagon [GlucaGen] 1 mg IM PRN PRN
Polyethylene Glycol Powder [Miralax] 17 grams PO DAILYPRN PRN
04/26/24 19:12
HEMATOLOGY CONSULT Routine
Consulting Provider: Emy Osman
Was physician already notified: Yes
NEPHROLOGY CONSULT Routine
Consulting Provider: Malka Enrique
Was physician already notified: Yes
Activity As Directed
Activity Level: As Tolerated
Bedside Glucose Monitoring As Directed
Frequency: AC&HS
Additional Instructions:: Change to q6h if pt on TPN, tube feeding or not eating
Vital Signs As Directed
Frequency: Per unit guidelines
DX Deep Vein Thrombosis Video Routine
04/26/24 20:00
Heparin 5,000 units SC Q12
04/26/24 22:00
Lorazepam [Ativan] 0.5 mg PO HS
04/26/24 22:17
BMP [Basic Metabolic Panel] Routine
04/27/24 04:33
Complete Blood Count/No Diff IN AM
Glycohemoglobin (HgbA1c) IN AM
04/27/24 Breakfast
2000 calorie (17 carb) Diabetic
At Your Request: Full Participation
Fluid Restriction: 1000 mL/day (33 oz)
Diabetic Diet: Potassium, 2 Gram
Levothyroxine [Synthroid] 200 mcg PO SUSA@0600
Sodium Zirconium Cyclosilicate [Lokelma] 10 gram PO TID@0600,1400,1800
04/27/24 07:30
Insulin Aspart Corrective Low [Novolog Flexpen-Low Resistance] See Protocol SC AC
04/27/24 08:00
Rosuvastatin Calcium [Crestor] 10 mg PO DAILY
04/28/24 06:00
Basic Metabolic Panel IN AM
Complete Blood Count/No Diff IN AM
04/28/24 11:00
DC Protocol for Telemetry ONCE
04/29/24 06:00
Basic Metabolic Panel IN AM
Complete Blood Count/No Diff IN AM
Levothyroxine [Synthroid] 100 mcg PO MOTUWETHFR@0600
04/30/24 06:00
Basic Metabolic Panel IN AM
Complete Blood Count/No Diff IN AM
05/01/24 06:00
Basic Metabolic Panel IN AM
Complete Blood Count/No Diff IN AM
Abnormal Lab Results
04/26/24
16:21
WBC 13.9 H 10^3/uL
(4.8-10.8)
RBC 3.03 L 10^6/uL
(4.20-5.40)
Hgb 9.2 L g/dL
(12.0-16.0)
Hct 27.4 L %
(37.0-47.0)
Abs Immat Gran (auto) 0.1 H 10^3/uL
(0-0.05)
Absolute Neuts (auto) 11.9 H 10^3/uL
(1.4-6.5)
Absolute Lymphs (auto) 1.0 L 10^3/uL
(1.2-3.4)
Absolute Monos (auto) 0.9 H 10^3/uL
(0.1-0.6)
Immature Gran % 1.0 H %
(0-0.5)
Neutrophils % 85.2 H %
(42.2-75.2)
Lymphocytes % 7.3 L %
(20.5-51.1)
Sodium 126 L mmol/L
(135-145)
Potassium 6.0 H mmol/L
(3.5-5.1)
Carbon Dioxide 18 L mmol/L
(22-30)
BUN 38 H mg/dl
(7-17)
Glucose 167 H mg/dl
(70-99)
Calcium 7.3 L mg/dl
(8.4-10.2)
Total Bilirubin 0.1 L mg/dl
(0.2-1.3)
AST 60 H U/L
(14-36)
ALT 51 H U/L
(0-35)
Total Protein 4.3 L g/dl
(6.3-8.2)
Albumin 2.0 L g/dl
(3.5-5.0)
04/26/24 16:21
04/26/24 16:21
Vital Signs
Initial and Last Documented VS:
Initial Vital Signs
Temp Pulse Resp BP Pulse Ox
98.2 F 107 20 119/66 98
04/26/24 11:55 04/26/24 11:55 04/26/24 11:55 04/26/24 11:55 04/26/24 11:55
Last Documented Vital Signs
Temp Pulse Resp BP Pulse Ox
98.3 F 94 18 123/69 98
04/27/24 19:00 04/27/24 19:00 04/27/24 19:00 04/27/24 19:00 04/27/24 19:00
<Christa Toribio PA-C - Last Filed: 04/27/24 23:12>
Orders/Labs/Results
Orders:
Orders
04/26/24 13:14
Electrocardiogram (*1) Urgent
Reason for Study: Other
Other Reason for Exam: hyperkalemia
Cardiac Monitoring- Treatment ONCE
EKG- Treatment ONCE
04/26/24 13:32
Consult Interventional Radiology [IRAD CONSULT] Urgent
Consulting Provider: Brenden Goetz
Was physician already notified: Yes
Reason for Consult/Procedure: paracentesis
Acknowledgement that appropriate orders are entered: Yes
04/26/24 14:29
Alteplase [Cathflo/Activase] 2 mg IV NOW STA
04/26/24 14:49
Sterile Water [Sterile Water For Injection] 10 ml .ROUTE .[facility]
04/26/24 15:25
Body Fluid Cell Count Routine
What is the Body Fluid: Peritoneal fluid
Date Specimen was Collected: 04/26/24
Time Specimen was Collected: 15:23
04/26/24 16:21
Complete Blood Count/With Diff Urgent
Comprehensive Metabolic Panel Urgent
Magnesium Urgent
04/26/24 17:16
Dextrose 50%-Water [Dextrose 50% Syringe] 25 grams IV NOW STA
Insulin Human Regular [Novolin R] 4 units IV NOW STA
Sodium Zirconium Cyclosilicate [Lokelma] 10 gram PO NOW STA
04/26/24 17:46
0.9% Sodium Chloride 250 ml [Nss] 250 ml IV BOLUS
04/26/24 18:11
Admit/Transfer Patient As Directed
Co-Sign Provider:
Level of Care: Inpatient admission
Assign to:: Telemetry
Physician / Group: bob rizzo
Diagnosis: hyperkalemia
Reason for Telemetry: Other
Other Reason for Telemetry: hyperkalemia
Date to Stop Telemetry: 04/28/24
Time to Stop Telemetry: 11:00
Reason for Hospitalization: hyperkalemia
Expected length of stay greater than two midnights?: Yes
ELOS- Estimated Length of Stay in days: 3
I certify the patient meets the requirements for IP care: Yes
04/26/24 18:13
Code Status As Directed
Resuscitation Status: Full Code
04/26/24 19:12
0.9% Sodium Chloride 1000 ml [Nss] 1,000 ml IV 75 mls/hr
Acetaminophen [Tylenol] 650 mg PO Q4HPRN PRN
Bisacodyl [Dulcolax] 10 mg RECTAL [id number] PRN
Dextrose 50%-Water [Dextrose 50% Syringe] 12.5 grams IV [id number] PRN
Docusate W/Senna [Senokot-S] 1 tablet PO BIDPRN PRN
Glucagon [GlucaGen] 1 mg IM PRN PRN
Polyethylene Glycol Powder [Miralax] 17 grams PO DAILYPRN PRN
04/26/24 19:12
HEMATOLOGY CONSULT Routine
Consulting Provider: Emy Osman
Was physician already notified: Yes
NEPHROLOGY CONSULT Routine
Consulting Provider: Malka Enrique
Was physician already notified: Yes
Activity As Directed
Activity Level: As Tolerated
Bedside Glucose Monitoring As Directed
Frequency: AC&HS
Additional Instructions:: Change to q6h if pt on TPN, tube feeding or not eating
Vital Signs As Directed
Frequency: Per unit guidelines
DX Deep Vein Thrombosis Video Routine
04/26/24 20:00
Heparin 5,000 units SC Q12
04/26/24 22:00
Lorazepam [Ativan] 0.5 mg PO HS
04/26/24 22:17
BMP [Basic Metabolic Panel] Routine
04/27/24 04:33
Complete Blood Count/No Diff IN AM
Glycohemoglobin (HgbA1c) IN AM
04/27/24 Breakfast
2000 calorie (17 carb) Diabetic
At Your Request: Full Participation
Fluid Restriction: 1000 mL/day (33 oz)
Diabetic Diet: Potassium, 2 Gram
Levothyroxine [Synthroid] 200 mcg PO SUSA@0600
Sodium Zirconium Cyclosilicate [Lokelma] 10 gram PO TID@0600,1400,1800
04/27/24 07:30
Insulin Aspart Corrective Low [Novolog Flexpen-Low Resistance] See Protocol SC AC
04/27/24 08:00
Rosuvastatin Calcium [Crestor] 10 mg PO DAILY
04/28/24 06:00
Basic Metabolic Panel IN AM
Complete Blood Count/No Diff IN AM
04/28/24 11:00
DC Protocol for Telemetry ONCE
04/29/24 06:00
Basic Metabolic Panel IN AM
Complete Blood Count/No Diff IN AM
Levothyroxine [Synthroid] 100 mcg PO RADHA@0600
04/30/24 06:00
Basic Metabolic Panel IN AM
Complete Blood Count/No Diff IN AM
05/01/24 06:00
Basic Metabolic Panel IN AM
Complete Blood Count/No Diff IN AM
Abnormal Lab Results
04/26/24
16:21
WBC 13.9 H 10^3/uL
(4.8-10.8)
RBC 3.03 L 10^6/uL
(4.20-5.40)
Hgb 9.2 L g/dL
(12.0-16.0)
Hct 27.4 L %
(37.0-47.0)
Abs Immat Gran (auto) 0.1 H 10^3/uL
(0-0.05)
Absolute Neuts (auto) 11.9 H 10^3/uL
(1.4-6.5)
Absolute Lymphs (auto) 1.0 L 10^3/uL
(1.2-3.4)
Absolute Monos (auto) 0.9 H 10^3/uL
(0.1-0.6)
Immature Gran % 1.0 H %
(0-0.5)
Neutrophils % 85.2 H %
(42.2-75.2)
Lymphocytes % 7.3 L %
(20.5-51.1)
Sodium 126 L mmol/L
(135-145)
Potassium 6.0 H mmol/L
(3.5-5.1)
Carbon Dioxide 18 L mmol/L
(22-30)
BUN 38 H mg/dl
(7-17)
Glucose 167 H mg/dl
(70-99)
Calcium 7.3 L mg/dl
(8.4-10.2)
Total Bilirubin 0.1 L mg/dl
(0.2-1.3)
AST 60 H U/L
(14-36)
ALT 51 H U/L
(0-35)
Total Protein 4.3 L g/dl
(6.3-8.2)
Albumin 2.0 L g/dl
(3.5-5.0)
04/26/24 16:21
04/26/24 16:21
Vital Signs
Initial and Last Documented VS:
Initial Vital Signs
Temp Pulse Resp BP Pulse Ox
98.2 F 107 20 119/66 98
04/26/24 11:55 04/26/24 11:55 04/26/24 11:55 04/26/24 11:55 04/26/24 11:55
Last Documented Vital Signs
Temp Pulse Resp BP Pulse Ox
98.3 F 94 18 123/69 98
04/27/24 19:00 04/27/24 19:00 04/27/24 19:00 04/27/24 19:00 04/27/24 19:00
<Wolf Holcomb PA-C - Last Filed: 04/26/24 16:14>
MDM/Problems Addressed
Differential Diagnosis Includes:
Renal failure, medication reaction, lab error, recurring ascites
MDM/Problems Addressed:
74-year-old female presenting to the emergency department at request of outpatient lab after she was found to have a potassium of 6.6. Patient has secondary concern of recurring abdominal ascites. Will recheck labs to confirm potassium level as
well as patient's creatinine. In the meantime will attempt to contact interventional radiology to see if they are able to accommodate a paracentesis for the patient today.
Chronic conditions affecting care: Cancer
Acute Exacerbation and/or Progression of Chronic Illness: Cancer
<Wolf Holcomb PA-C - Last Filed: 04/26/24 16:14>
*Pulse Oximetry
Patient hypoxic: no
Data Reviewed
Review of Other/Old Records Reveals: Labs and Records
Source: patient and records
<Christa Toribio PA-C - Last Filed: 04/27/24 23:12>
*Critical Care Note
Total Time (30-74mins, 75-104mins- exclusive of procedures): Not Applicable
<Wolf Holcomb PA-C - Last Filed: 04/26/24 16:14>
Comment
Comment:
IV team attempted to access port however no return. Cathflo ordered. Patient to be brought to IR in meantime
4:10 PM - Patient returned from IR, 1200mL ascitic fluid drained. Patient reports significant relief. Labs to be drawn and sent
<Christa Toribio PA-C - Last Filed: 04/27/24 23:12>
Update Note
Update Note:
assumed care at 1700 from emma SINGH
confirmed hyperkalemia
bun/cr about her baseline
no ekg changes
will admit, insulin, dextrose, lokelma
d/w hospitlaist who requested small fluid bolus, aware of her peritoneal ascites
ED Attending Note
<Wolf Holcomb PA-C - Last Filed: 04/26/24 16:14>
-
Portions of this chart may have been created with voice recognition software.� Occasional wrong word or��sound alike� substitutions may have occurred due to the inherent limitations of voice recognition software.
Discharge Plan
Departure
Patient Disposition: Admit
Date of Disposition: 04/26/24
Time of Disposition: 17:32
Admit to: Telemetry
Presentation/result/management discussed w/ accepting MD/DO: Hospitalist
Condition: Fair
Covid-19: Not Applicable
Discharge Problem:
Acute hyperkalemia
Interventions
Interventions:
*Risk Screen - Suicide Last Done: 04/26/24 19:31
ED- Fall Risk Assessment Last Done: 04/26/24 13:34
*ED COVID-19 Vaccine History Last Done: 04/26/24 11:55
*Nursing Disposition Last Done: 04/26/24 19:13
Discharge Date and Time
Discharge Date/Time: 04/26/24 19:14
[2024-04-26] MEDS: CATHFLO/ACTIVASE 2 MG IV (14:53)
[2024-04-26 16:33] LABS: % Basophils 0.1 % (0-2); % Eosinophils 0.1 % (0-6); % Lymphocytes 7.3 % (20.5-51.1); % Monocytes 6.3 % (1.7-9.3); % Neutrophils 85.2 % (42.2-75.2); Absolute Immature Granulocytes 0.1 10^3/uL (0-0.05); Absolute Monocytes 0.9 10^3/uL (0.1-0.6); Absolute Neutrophils 11.9 10^3/uL (1.4-6.5); Hematocrit 27.4 % (37.0-47.0); Hemoglobin 9.2 g/dL (12.0-16.0); Mean Corp Hgb Conc. 33.6 g/dL (33.0-37.0); Mean Corpuscular Hgb 30.4 pg (27.0-31.0); Mean Corpuscular Volume 90.4 fL (81.0-99.0); Mean Platelet Volume 8.5 fL (7.4-10.4); Nucleated Red Blood Cells % 0.1 %; Platelet Count 383 10^3/uL (130-400); Red Blood Cell Count 3.03 10^6/uL (4.20-5.40); Red Cell Dist. Width 14.1 % (11.5-14.5); White Blood Cell Count 13.9 10^3/uL (4.8-10.8)
[2024-04-26 16:48] LABS: ALT (SGPT) 51 U/L (0-35); AST (SGOT) 60 U/L (14-36); Alkaline Phosphatase 89 U/L (38-126); Blood Urea Nitrogen 38 mg/dl (7-17); Calcium 7.3 mg/dl (8.4-10.2); Carbon Dioxide 18 mmol/L (22-30); Chloride 103 mmol/L (98-107); Glucose 167 mg/dl (70-99); Magnesium 1.7 mg/dl (1.6-2.3); Sodium 126 mmol/L (135-145); Total Bilirubin 0.1 mg/dl (0.2-1.3); Total Protein 4.3 g/dl (6.3-8.2); eGFR > 60.00
[2024-04-26 16:58] LABS: Body Fluid Mononuclear 83.3 %; Body Fluid Polymorphonuclear 16.7 %; Body Fluid WBC 820 /CUMM
[2024-04-26 17:03] LABS: Body Fluid Second Tech RLT
[2024-04-26] MEDS: NOVOLIN R 4 UNITS IV (17:28)
[2024-04-26] MEDS: LOKELMA 10 GRAM PO (17:30)
[2024-04-26] MEDS: DEXTROSE 50% SYRINGE 25 GRAMS IV (17:31)
--- NOTE | 2024-04-26 17:41 | HPS.HSE ---
Family Physician
-
Family Physician: Catina Romano
Chief Complaint
-
Hyperkalemia
History of Present Illness
74-year-old female with past medical history of ovarian/peritoneal cancer, hypertension, hyperlipidemia presenting to the emergency department for evaluation after she had outpatient labs done yesterday which showed she had a potassium of 6.6.
Patient states her last chemotherapy treatment was on March 27 and she was supposed to have another treatment on Monday, but could not get it because she did not get her ECHO.On Monday, she got her ECHO and paracentesis which yielded 3.5. the
labs were obtained that day and noted have potassium of 6.6. she only complained of sob and dizzy yesterday. she feels sob, when its time to get paracentesis. She denies any fevers, chills, rigors, nausea, vomiting, bowel changes. denied chest
pain. denied dysuria or hematuria.
today she underwent paracentesis yielded 1.5l. noted to have hyperkalemia. received insulin, lokelma and dextrose in ER. admitting for further management.
Medical History
Past Medical History
Past Medical History: Reports Other
Additional Past Medical History:
Hypothyroidism
Hypertension
Hyperlipidemia
Diabetes
Osteopenia
Polymyalgia
Peritoneal carcinomatosis
Past Surgical History: Reports Other
Additional Past Surgical History:
Debulking surgery
Tonsillectomy
Total hysterectomy bilateral salpingo-oophorectomy, partial resection of all 4 cancer
Social History
Tobacco: Former Smoker
Alcohol: Occasional
Drug: None
Personal:
Living: With Family
Family History
Family History: Not pertinent
Allergies / Home Medications
Allergies reflects when Allergies were last updated in [employer].
Home Medications with original date entered in [employer]
Allergy/Medication List:
Allergies
Allergy/AdvReac Type Severity Reaction Status Date / Time
lisinopril Allergy cough Verified 04/26/24 11:58
Home Medications
levothyroxine 100 mcg tablet 100 mcg PO MOTUWETHFR@0600 Thyroid 11/03/21
nateglinide 120 mg tablet 120 mg PO MEALS Diabetes 11/03/21
lorazepam 0.5 mg tablet 0.5 mg PO HS Mental Health/Anxiety 03/21/24
metformin 500 mg tablet 1,000 mg PO BIDWMEAL Diabetes 03/21/24
metoclopramide HCl 5 mg tablet 5 mg PO TIDPRN PRN nausea 03/21/24
rosuvastatin 10 mg tablet 10 mg PO DAILY High Cholesterol 03/21/24
cholecalciferol (vitamin D3) 25 mcg (1,000 unit) tablet 25 mcg PO DAILY Supplement 04/01/24
levothyroxine 100 mcg tablet 200 mcg PO SUSA@0600 Thyroid 04/01/24
ondansetron 8 mg disintegrating tablet 8 mg PO Q8H PRN nausea/vomiting 04/11/24
docusate sodium 100 mg capsule (Colace) 100 mg PO DAILY PRN constipation 04/26/24
doxorubicin 1 dose IV . DIRECTED 04/26/24
polyethylene glycol 3350 17 gram oral powder packet (HealthyLax) 17 g PO DAILY PRN constipation 04/26/24
Review of Systems
-
Constitutional: Reports No Symptoms
EENT: Reports No Symptoms
Respiratory: Reports Trouble Breathing
Cardiac: Reports No Symptoms
Abdomen/GI: Reports No Symptoms
: Reports No Symptoms
Musculoskeletal: Reports No Symptoms
Skin: Reports No Symptoms
Neurological: Reports Dizzy
Endocrine: Reports No Symptoms
Hematologic/Lymphatic: Reports No Symptoms
Psych: Reports No Symptoms
Physical Exam
Vital Signs
Vital Signs
Temp Pulse Resp BP Pulse Ox
98.3 F 93 22 107/59 98
04/26/24 15:15 04/26/24 16:30 04/26/24 16:30 04/26/24 15:43 04/26/24 16:30
Physical Exam
General: Well Developed, Well Nourished and No Apparent Distress
HEENT: NormoCephalic, Moist mucous membranes and Atraumatic
Respiratory: Clear
Cardiac: S1/S2 and Regular Rhythm; No Murmur or Rub
GI: Soft, Non Tender, Non Distended and Normal Bowel Sounds; No Organomegaly
Rectal: Deferred by Provider
Musculoskeletal: No Clubbing, No Cyanosis and No Edema
Skin: No Rash
Neuro: AO x 3 and Nonfocal/grossly intact
Psych: Calm
Laboratory Results
-
04/26/24 16:21
04/26/24 16:21
Laboratory Results
Total Bilirubin 0.1 mg/dl (0.2-1.3) L 04/26/24 16:21
AST 60 U/L (14-36) H 04/26/24 16:21
ALT 51 U/L (0-35) H 04/26/24 16:21
Alkaline Phosphatase 89 U/L (38-126) 04/26/24 16:21
Data Reviewed
-
Lab Data: Labs Reviewed by me
Impression/Plan
-
#hyperkalemia unclear cause
-K 6
-EKG with normal sinus rhythm
-received lokelma, insulin and dextrose in ER
-monitor BMP
# Anemia of chronic disease
-Hemoglobin stable at 9.2
-No active bleeding
-Continue to monitor
# Acute hyponatremia likely dehydration
-Sodium 126,
-normal saline continued
-monitor BMP in am
# LFT elevation likely dehydration
-AST 60, ALT 51
-continue to trend
# Primary Peritoneal Cancer Stage IIIC
-History of debulking surgery with hysterectomy/bilateral salpingo-oophorectomy
#recurrent ascites secondary to peritoneal cancer
-got paracentesis today, drained 1.5l
# Hypertension
-BP stable
-ctm
# Hyperlipidemia-continue rosuvastatin
# Hypothyroidism-continue Synthroid
# Diabetes
-hold nateglinide, metformin
- sliding scale coverage
-CHO diet
# Anxiety-continue lorazepam
# Ex-smoker
#CODE STATUS-patient wants to be full code
--- NOTE | 2024-04-26 18:21 | W.PN.UPDATE ---
Update Note
Progress Note Update
I saw and examined the patient.
The MACHINERY MECHANIC or PA's note was reviewed and I agree with the note.
Comment: 74-year-old female presents with a chief complaint of hyperkalemia.
107/59, 93, 22, 98.3 �F, 98% on room air
NAD, awake and alert, appears chronically ill, NCAT
EOMI, no scleral icterus
RRR, normal S1/S1
CTAB
+BS/soft/NT/mod distention with ascites
Lab Results
04/26/24 04/26/24
15:25 16:21
WBC 13.9 H
RBC 3.03 L
Hgb 9.2 L
Hct 27.4 L
MCV 90.4
MCH 30.4
MCHC 33.6
RDW 14.1
Plt Count 383
MPV 8.5
Abs Immat Gran (auto) 0.1 H
Absolute Neuts (auto) 11.9 H
Absolute Lymphs (auto) 1.0 L
Absolute Monos (auto) 0.9 H
Absolute Eos (auto) 0.0
Absolute Basos (auto) 0.0
Immature Gran % 1.0 H
Neutrophils % 85.2 H
Lymphocytes % 7.3 L
Monocytes % 6.3
Eosinophils % 0.1
Basophils % 0.1
Nucleated RBC % 0.1
Sodium 126 L
Potassium 6.0 H
Chloride 103
Carbon Dioxide 18 L
BUN 38 H
Creatinine 0.9
eGFR > 60.00
Glucose 167 H
Calcium 7.3 L
Magnesium 1.7
Total Bilirubin 0.1 L
AST 60 H
ALT 51 H
Alkaline Phosphatase 89
Total Protein 4.3 L
Albumin 2.0 L
Fluid WBC 820
Fluid Mononuclear Cell 83.3
Fl Polymorphonucl Cell 16.7
Fluid Other Cells Not Reportable
Fluid Diff Path Review Not Reportable
Hyperkalemia/hyponatremia:
-Patient received D50 water/insulin, Lokelma, 500cc NS in the ER
-cont IVFs and Lokelma
-BMP in 6 hours and AM
-c/s renal
Primary Peritoneal Cancer Stage IIIC with malignant ascites:
-s/p 1.5L paracentesis today
-c/s ONC
[2024-04-26] MEDS: NSS 250 IV (18:48)
[2024-04-26] MEDS: NSS 1000 IV (19:54)
[2024-04-26] MEDS: HEPARIN 5000 UNITS SC (19:55)
[2024-04-26 21:28] LABS: Glucose - Point of Care 169 mg/dl (70-99)
[2024-04-26] MEDS: ATIVAN 0.5 MG PO (21:35)
[2024-04-26 22:57] LABS: Blood Urea Nitrogen 36 mg/dl (7-17); Calcium 6.9 mg/dl (8.4-10.2); Carbon Dioxide 19 mmol/L (22-30); Chloride 103 mmol/L (98-107); Estimated Creatinine Clearance 44 ml/min; Glucose 129 mg/dl (70-99); Potassium 5.3 mmol/L (3.5-5.1); Sodium 125 mmol/L (135-145); eGFR > 60.00
--- NOTE | 2024-04-26 23:27 | W.PN.UPDATE ---
Update Note
Progress Note Update
noted to calcium of 6.9, initiated on calcium gluconate. potassium improved to 5.3. sodium 125 obtain urine sodium, urine osmolality and serum osmolality. patient received normal saline 500 cc in ER. at present normal saline 75cc/hr. ctm
[2024-04-26] MEDS: CALCIUM GLUCONATE 100 IV (23:42)
[2024-04-27 00:04] LABS: Osmolality Serum 277 mOsm/kg (275-300)
[2024-04-27 03:00] VITALS: BP 106/58
[2024-04-27 03:18] LABS: Urine Albumin Negative (Neg - Trace); Urine Bilirubin Negative (Negative); Urine Character Clear (Clear); Urine Color Yellow; Urine Glucose Negative (Negative); Urine Ketone Negative (Negative); Urine Leukocyte Trace (Negative); Urine Nitrite Positive (Negative); Urine Occult Blood Negative (Negative); Urine Specific Gravity 1.015 (<1.030); Urine Urobilinogen Negative (Neg - 1+)
[2024-04-27 03:21] LABS: Osmolality Urine 636 mOsm/kg (300-900)
[2024-04-27 03:25] LABS: Urine Bacteria Many (Negative); Urine Red Blood Cell None Seen /HPF (0-2); Urine Sodium 11 mmol/L (30-90); Urine White Cell 30-40 /HPF (0-5)
[2024-04-27 04:46] LABS: Hematocrit 25.7 % (37.0-47.0); Hemoglobin 8.4 g/dL (12.0-16.0); Mean Corp Hgb Conc. 32.7 g/dL (33.0-37.0); Mean Corpuscular Hgb 30.2 pg (27.0-31.0); Mean Corpuscular Volume 92.4 fL (81.0-99.0); Mean Platelet Volume 8.6 fL (7.4-10.4); Platelet Count 351 10^3/uL (130-400); Red Blood Cell Count 2.78 10^6/uL (4.20-5.40); Red Cell Dist. Width 13.9 % (11.5-14.5); White Blood Cell Count 9.6 10^3/uL (4.8-10.8)
[2024-04-27 05:14] LABS: ALT (SGPT) 51 U/L (0-35); AST (SGOT) 59 U/L (14-36); Albumin 1.7 g/dl (3.5-5.0); Alkaline Phosphatase 73 U/L (38-126); Blood Urea Nitrogen 31 mg/dl (7-17); Calcium 7.5 mg/dl (8.4-10.2); Carbon Dioxide 20 mmol/L (22-30); Chloride 107 mmol/L (98-107); Estimated Creatinine Clearance 50 ml/min; Glucose 125 mg/dl (70-99); Potassium 5.2 mmol/L (3.5-5.1); Sodium 128 mmol/L (135-145); Total Bilirubin < 0.1 mg/dl (0.2-1.3); Total Protein 3.8 g/dl (6.3-8.2); eGFR > 60.00
[2024-04-27 05:26] LABS: Direct Bilirubin 0.2 mg/dl (0.0-0.4)
[2024-04-27] MEDS: SYNTHROID 200 MCG PO (05:55)
[2024-04-27] MEDS: LOKELMA 10 GRAM PO ×3 (05:55→17:56)
[2024-04-27 08:01] LABS: Glucose - Point of Care 141 mg/dl (70-99)
[2024-04-27] MEDS: ZOFRAN 4 MG IV (08:04)
[2024-04-27] MEDS: NOVOLOG FLEXPEN-LOW RESISTANCE SC ×2 (08:09→16:04)
[2024-04-27] MEDS: CRESTOR 10 MG PO (08:09)
[2024-04-27] MEDS: HEPARIN 5000 UNITS SC ×2 (08:09→21:43)
[2024-04-27 08:10] VITALS: BP 113/76
[2024-04-27] MEDS: SODIUM CHLORIDE 3% 250 IV (09:41)
--- NOTE | 2024-04-27 10:34 | CON.ONC ---
Impression
Impression
[place] refractory primary peritoneal cancer, heavily pretreated
Initiated Doxil chemotherapy March 27, 2024
Hospital admission for hyperkalemia
Hyponatremia
Hypocalcemia
Recurrent ascites requiring frequent paracenteses
History of significant proteinuria from prior bevacizumab
Plan
Plan
Management of hyperkalemia per primary team, nephrology has been consulted
I suspect frequent paracenteses are contributing to her renal insufficiency and electrolyte abnormalities
Will check Ca125 to assess for early benefit from new chemotherapy regimen, Doxil was started March 27
Cautioned that indwelling abdominal catheter and frequent drainage at home could contribute to ongoing issues with renal insufficiency and electrolyte abnormalities; will need to strongly consider risks and benefits before proceeding
We will follow along
Patient History
History of Present Illness
74-year-old female with [place] refractory primary peritoneal cancer, who started DOXIL chemotherapy on March 27, was sent to the emergency room for hospital admission after outpatient blood work showed potassium of 6.6. She has struggled with
recurrent ascites, needing frequent paracenteses. She has been approved for an indwelling catheter for outpatient drainage, though this has not yet been scheduled. She was hospitalized on April 11 with hyperkalemia, was thought losartan was
contributing, which was discontinued. She reports shortness of breath and decreased appetite, especially when her ascites reaccumulates. She underwent 1.5 L paracentesis yesterday.
She was admitted to the hospital and treated for hyperkalemia, now with potassium of 5.2 this morning.
Past-Medical/Surgical History
Past medical history includes malignant neoplasm of peritoneum as per HPI, she underwent bowel resection and CHAVEZ/BSO in February 2022. She has a BRCA2 mutation. Prior surgery includes tonsillectomy, adenoidectomy and tubal ligation.
Social history: She is , drinks alcohol socially, former smoker
Family history: Her mother had ovarian cancer and father had prostate cancer
Patient Medication
�Medication �Instructions �Recorded �Confirmed �Last Taken �Type
levothyroxine 100 mcg tablet 100 mcg PO MOTUWETHFR@0600 Thyroid 11/03/21 04/26/24 04/26/24 History
nateglinide 120 mg tablet 120 mg PO MEALS Diabetes 11/03/21 04/26/24 04/26/24 History
lorazepam 0.5 mg tablet 0.5 mg PO HS Mental Health/Anxiety 03/21/24 04/26/24 04/25/24 History
metformin 500 mg tablet 1,000 mg PO BIDWMEAL Diabetes 03/21/24 04/26/24 04/26/24 History
metoclopramide HCl 5 mg tablet 5 mg PO TIDPRN PRN nausea 03/21/24 04/26/24 04/26/24 History
rosuvastatin 10 mg tablet 10 mg PO DAILY High Cholesterol 03/21/24 04/26/24 04/26/24 History
cholecalciferol (vitamin D3) 25 25 mcg PO DAILY Supplement 04/01/24 04/26/24 04/26/24 History
mcg (1,000 unit) tablet
levothyroxine 100 mcg tablet 200 mcg PO SUSA@0600 Thyroid 04/01/24 04/26/24 04/21/24 History
ondansetron 8 mg disintegrating 8 mg PO Q8H PRN nausea/vomiting 04/11/24 04/26/24 04/11/24 History
tablet
docusate sodium 100 mg capsule 100 mg PO DAILY PRN constipation 04/26/24 04/26/24 04/26/24 History
(Colace)
doxorubicin 1 dose IV . DIRECTED 04/26/24 04/26/24 03/27/24 History
polyethylene glycol 3350 17 gram 17 g PO DAILY PRN constipation 04/26/24 04/26/24 Unknown History
oral powder packet (HealthyLax)
Active Medications
Generic Name Dose Route Start Last Admin
Trade Name Freq PRN Reason Stop Dose Admin
Acetaminophen 650 mg 04/26/24 19:12
Acetaminophen 325 Mg Tablet PO 05/24/24 19:11
Q4HPRN PRN
mild pain/LONG/temp> 100.4F
Bisacodyl 10 mg 04/26/24 19:12
Bisacodyl 10 Mg Rectal Suppository RECTAL 05/24/24 19:11
[id number] PRN
constipation
Dextrose 12.5 grams 04/26/24 19:12
Dextrose 50% (0.5 Grams/Ml) 50 Ml Syringe IV 05/24/24 19:11
[id number] PRN
hypoglycemia
Protocol
Glucagon 1 mg 04/26/24 19:12
Glucagon 1 Mg Vial IM 05/24/24 19:11
PRN PRN
hypoglycemia
Protocol
Heparin Sodium 5,000 units 04/26/24 20:00 04/27/24 08:09
Heparin 5,000 Units/Ml 1 Ml Vial SC 05/24/24 19:59 5,000 units
Q12 MARIA INES Administration
Sodium Chloride 1,000 mls @ 75 mls/hr 04/26/24 19:12 04/26/24 19:54
Nss IV 1,000 mls
[id number] MARIA INES Administration
Sodium Chloride 250 mls @ 20 mls/hr 04/27/24 08:18 04/27/24 09:41
Sodium Chloride 3% IV 04/27/24 20:47 250 mls
ONCE ONE Administration
Insulin Aspart 0 units 04/27/24 07:30 04/27/24 08:09
Insulin Aspart Low Resistance 300 Units/3 Ml Pen.Injctr SC 05/25/24 07:29 Not Given
AC MARIA INES
Protocol
Levothyroxine Sodium 100 mcg 04/29/24 06:00
Levothyroxine 100 Mcg Tablet PO 05/27/24 05:59
MOTUWETHFR@599 MARIA INES
Levothyroxine Sodium 200 mcg 04/27/24 06:00 04/27/24 05:55
Levothyroxine 100 Mcg Tablet PO 05/25/24 05:59 200 mcg
SUSA@599 MARIA INES Administration
Lorazepam 0.5 mg 04/26/24 22:00 04/26/24 21:35
Lorazepam 0.5 Mg Tablet PO 05/24/24 21:59 0.5 mg
HS MARIA INES Administration
Ondansetron HCl 4 mg 04/27/24 07:56 04/27/24 08:04
Ondansetron 4 Mg/2 Ml Vial IV 05/25/24 07:55 4 mg
Q6HPRN PRN Administration
NAUSEA/VOMITING
Polyethylene Glycol 17 grams 04/26/24 19:12
Polyethylene Glycol Powder 17 Grams Packet PO 05/24/24 19:11
DAILYPRN PRN
constipation
Rosuvastatin Calcium 10 mg 04/27/24 08:00 04/27/24 08:09
Rosuvastatin (Crestor) 10 Mg Tablet PO 05/25/24 07:59 10 mg
DAILY MARIA INES Administration
Senna/Docusate Sodium 1 tablet 04/26/24 19:12
Docusate W/Senna (Huma-Colace) Tablet PO 05/24/24 19:11
BIDPRN PRN
constipation
Sodium Chloride 0 flush 04/26/24 20:00
Sodium Chloride 0.9% (Flush) Syringe IV 05/24/24 19:59
PER PROTOCOL MARIA INES
Sodium Zirconium Cyclosilicate 10 gram 04/27/24 06:00 04/27/24 05:55
Sodium Zirconium Cyclosilicate (Lokelma) 10 Gram Powder Packet PO 04/28/24 18:01 10 gram
TID@0600,1400,1800 MARIA INES Administration
Review of Systems
-
All Other Systems: Not reviewed unless documented
Physical Exam
-
General: No Apparent Distress and Comfortable
Cardiology: Normal Sinus Rhythm
Pulmonary: Clear
GI: Distended (Moderate ascites)
Musculoskeletal: No Clubbing, No Cyanosis and No Edema
Extremities: No C/C/E
Neurology: Non Focal and No Lateralizing Symptoms
Skin: Warm and Dry
Psych: Calm and Intact Judgement/Insight
Labs
Lab Results
WBC 9.6 10^3/uL (4.8-10.8) 04/27/24 04:33
RBC 2.78 10^6/uL (4.20-5.40) L 04/27/24 04:33
Hgb 8.4 g/dL (12.0-16.0) L 04/27/24 04:33
Hct 25.7 % (37.0-47.0) L 04/27/24 04:33
MCV 92.4 fL (81.0-99.0) 04/27/24 04:33
MCH 30.2 pg (27.0-31.0) 04/27/24 04:33
MCHC 32.7 g/dL (33.0-37.0) L 04/27/24 04:33
RDW 13.9 % (11.5-14.5) 04/27/24 04:33
Plt Count 351 10^3/uL (130-400) 04/27/24 04:33
MPV 8.6 fL (7.4-10.4) 04/27/24 04:33
Abs Immat Gran (auto) 0.1 10^3/uL (0-0.05) H 04/26/24 16:21
Absolute Neuts (auto) 11.9 10^3/uL (1.4-6.5) H 04/26/24 16:21
Absolute Lymphs (auto) 1.0 10^3/uL (1.2-3.4) L 04/26/24 16:21
Absolute Monos (auto) 0.9 10^3/uL (0.1-0.6) H 04/26/24 16:21
Absolute Eos (auto) 0.0 10^3/uL (0-0.7) 04/26/24 16:21
Absolute Basos (auto) 0.0 10^3/uL (0-0.2) 04/26/24 16:21
Immature Gran % 1.0 % (0-0.5) H 04/26/24 16:21
Neutrophils % 85.2 % (42.2-75.2) H 04/26/24 16:21
Lymphocytes % 7.3 % (20.5-51.1) L 04/26/24 16:21
Monocytes % 6.3 % (1.7-9.3) 04/26/24 16:21
Eosinophils % 0.1 % (0-6) 04/26/24 16:21
Basophils % 0.1 % (0-2) 04/26/24 16:21
Creatinine 0.7 mg/dL (0.6-1.0) 04/27/24 04:33
Vital Signs
Vital Signs
Temp Pulse Resp BP Pulse Ox
97.8 F 84 16 113/76 100
04/27/24 08:10 04/27/24 08:10 04/27/24 08:10 04/27/24 08:10 04/27/24 08:10
--- NOTE | 2024-04-27 10:39 | W.PN.HOSP.TC ---
Today's Communication/Plan
-
see bold
Assessment / Plan
Assessment / Plan
Gen: NAD, AAOx3.
Eyes: EOMI, PERRLA, no scleral icterus.
Neck: supple.
CV: RRR, +S1/S2, no m/r/g.
Resp: CTAB, no rales, wheezes, or rhonchi.
Abd: +BS, soft, NT, ND
Skin: No rashes.
Neuro: CN 2-12 intact, non-focal.
Psych: Normal mood and affect.
Hyperkalemia/hyponatremia:
-Patient received D50 water/insulin, Lokelma, 500cc NS in the ER
-has been on maintenance IVFs
-cont Lokelma
-renal following
-3% NS today
Primary Peritoneal Cancer Stage IIIC with recurrent, malignant ascites:
-s/p 1.5L paracentesis 04/26/24
-ONC following
Other problems:
Anemia of chronic disease: trend Hb
Hypocalcemia: s/p IV Ca
DM2: SSI/accuchecks
Anxiety
Hypothyroidism: cont Levoxyl
HLD: cont statin
Extremely poor prognosis
FULL/heparin
Anticipated Discharge: 24 - 48 hours
Subjective/Interval History
-
Date of Service: April 27, 2024
Denies chest pain, shortness of breath, abdominal pain.
Objective Data
-
Labs:
Laboratory Results
04/26/24 04/27/24
22:17 04:33
WBC 9.6
Hgb 8.4 L
Hct 25.7 L
Plt Count 351
Sodium 125 L 128 L
Potassium 5.3 H 5.2 H
Chloride 103 107
Carbon Dioxide 19 L 20 L
BUN 36 H 31 H
Creatinine 0.8 0.7
Glucose 129 H 125 H
Calcium 6.9 L* 7.5 L
Total Bilirubin < 0.1 L
AST 59 H
ALT 51 H
Alkaline Phosphatase 73
Vital Signs:
Vital Signs
Temp Pulse Resp BP Pulse Ox
97.8 F 84 16 113/76 100
04/27/24 08:10 04/27/24 08:10 04/27/24 08:10 04/27/24 08:10 04/27/24 08:10
I&O
04/26/24 04/27/24 04/28/24
06:59 06:59 06:59
Intake Total 895 / 895
Output Total 100 / 100
Balance 795 / 795
[2024-04-27] MEDS: NSS IV (10:45)
[2024-04-27 11:37] VITALS: BP 120/69
--- NOTE | 2024-04-27 11:56 | W.CON.NEPH ---
Consultation
-
Date/Time Consultation Requested: 04/26/2024 19:12
Date/Time Consultation Performed: 04/27/2024 11:56AM
Requesting Provider: Faizan Alvarado
Performing Provider: Malka Enrique
Reason for Consultation: hyponatremia
Medical History
-
Chief Complaint: hyponatremia
History of Present Illness:
Ms. Galvez is a 74YOF with PMH of ovarian/peritoneal cancer, HTN, DLD who presents to the ER after having a K of 6.6.
Last chemo was on 03/27. She underwent para and echo on Monday. Labs that day were normal but K was elevated to 6.6. At this time, states that she feels well. Denies SOB, dizziness currently. She denies any fevers, chills, rigors, nausea, vomiting,
bowel changes. denied chest pain. denied dysuria or hematuria.
Of note, has been followed by Dr. Beth who saw her for proteinuria after Avastin usage. Aastin was stopped and nephrotic range poteinuria improved. Continued on losartan but stopped in March due to hyperK.
Past Medical History
Hypothyroidism
Hypertension
Hyperlipidemia
Diabetes
Osteopenia
Polymyalgia
Peritoneal carcinomatosis
Past Surgical History: Other (Debulking surgery Tonsillectomy Total hysterectomy bilateral salpingo-oophorectomy, partial resection of all 4 cancer)
Social History
Tobacco: Former Smoker
Alcohol: Occasional
Drug: None
Personal:
Living: With Family
Family History
Family History: Not Pertinent
Allergies / Home Medications
Allergy/AdvReac Type Severity Reaction Status Date / Time
lisinopril Allergy cough Verified 04/26/24 11:58
�Medication �Instructions �Recorded �Confirmed �Type
levothyroxine 100 mcg tablet 100 mcg PO MOTUWETHFR@0600 Thyroid 11/03/21 04/26/24 History
nateglinide 120 mg tablet 120 mg PO MEALS Diabetes 11/03/21 04/26/24 History
lorazepam 0.5 mg tablet 0.5 mg PO HS Mental Health/Anxiety 03/21/24 04/26/24 History
metformin 500 mg tablet 1,000 mg PO BIDWMEAL Diabetes 03/21/24 04/26/24 History
metoclopramide HCl 5 mg tablet 5 mg PO TIDPRN PRN nausea 03/21/24 04/26/24 History
rosuvastatin 10 mg tablet 10 mg PO DAILY High Cholesterol 03/21/24 04/26/24 History
cholecalciferol (vitamin D3) 25 25 mcg PO DAILY Supplement 04/01/24 04/26/24 History
mcg (1,000 unit) tablet
levothyroxine 100 mcg tablet 200 mcg PO SUSA@0600 Thyroid 04/01/24 04/26/24 History
ondansetron 8 mg disintegrating 8 mg PO Q8H PRN nausea/vomiting 04/11/24 04/26/24 History
tablet
docusate sodium 100 mg capsule 100 mg PO DAILY PRN constipation 04/26/24 04/26/24 History
(Colace)
doxorubicin 1 dose IV . DIRECTED 04/26/24 04/26/24 History
polyethylene glycol 3350 17 gram 17 g PO DAILY PRN constipation 04/26/24 04/26/24 History
oral powder packet (HealthyLax)
Review of Systems
-
History Source: Patient
All other systems: Negative unless noted
Neurological: Dizzy (resolved)
Physical Exam
Vital Signs
Vital Signs
Temp Pulse Resp BP Pulse Ox
98.1 F 95 16 120/69 99
04/27/24 11:37 04/27/24 11:37 04/27/24 11:37 04/27/24 11:37 04/27/24 11:37
Lab Results
WBC 9.6 10^3/uL (4.8-10.8) 04/27/24 04:33
RBC 2.78 10^6/uL (4.20-5.40) L 04/27/24 04:33
Hgb 8.4 g/dL (12.0-16.0) L 04/27/24 04:33
Hct 25.7 % (37.0-47.0) L 04/27/24 04:33
Plt Count 351 10^3/uL (130-400) 04/27/24 04:33
Sodium 128 mmol/L (135-145) L 04/27/24 04:33
Potassium 5.2 mmol/L (3.5-5.1) H 04/27/24 04:33
Chloride 107 mmol/L (98-107) 04/27/24 04:33
Carbon Dioxide 20 mmol/L (22-30) L 04/27/24 04:33
BUN 31 mg/dl (7-17) H 04/27/24 04:33
Creatinine 0.7 mg/dL (0.6-1.0) 04/27/24 04:33
eGFR > 60.00 04/27/24 04:33
Glucose 125 mg/dl (70-99) H 04/27/24 04:33
Calcium 7.5 mg/dl (8.4-10.2) L 04/27/24 04:33
Albumin 1.7 g/dl (3.5-5.0) L 04/27/24 04:33
Physical Exam
General: AOx3, No Distress and Nontoxic
HEENT: PERRL, EOMI, Anicteric, Conjunctivae Clear, Ear/Nose Intact, Hearing Normal, Oropharynx Clear/Moist, Dentition Intact, Facial Symmetry, Neck Supple, Trachea Midline, No JVD and No Thyromegaly
Respiratory: Clear, Normal Excursion and Nonlabored Respirations
Cardiac: S1/S2, Regular Rate/Rhythm and No Edema
Breast: Deferred by me
Abdomen: Soft, Nontender, Nondistended, Normal Bowel Sounds and No Hepatosplenomegaly
Rectal: Deferred by Provider
Genito-urinary: No Costovertebral Tender
Musculoskeletal: No Clubbing, No Cyanosis and No Edema
Skin: No Rash
Neuro: Nonfocal/Grossly Intact
Psych: Mood/afflect pleasant, Insight/judgement good and Appropriate
Data Reviewed
-
Labs: Labs Reviewed by me and Discussed with Physician
Old Records: Reviewed
Assessment/Plan
-
Assessment:
Hyponatremia
Hyperkalemia (prior admission noted)
NAGMA
Hypocalcemia
Recurrent ascites
Significant proteinuria from becacizumab
[place] refractory peritoneal cancer (on doxil)
T2DM
Anxiety
Hypothyroidism
Anemia of chronic disease
Plan:
Hyponatremia
- uosm 636 and urine na 11
- likely some component of SIADH + hypovolemia
- Na to 128 after normal saline bolus (126 on presentation)
- okay to give HTS today
- goal sodium above 130 by tomorrow
Hyperkalemia
- NAGMA noted
- type 4 RTA possible
- treat hyperK as you are
- might need to be discharged on lokelma
[2024-04-27 12:11] LABS: Glucose - Point of Care 165 mg/dl (70-99)
[2024-04-27] MEDS: NOVOLOG FLEXPEN-LOW RESISTANCE 1 UNITS SC (14:02)
[2024-04-27 14:32] LABS: Glycohemoglobin (HgbA1c) 6.9 % (4.0-5.6)
--- NOTE | 2024-04-27 14:39 | CM ---
Reviewed chart, met with patient and her spouse who was at bedside to obtain information for assessment. Patient stated that she lives with her spouse in a one floor condo with elevator access. Patient described herself as mostly independent with
dressing, bathing, personal care, ADLs and ambulates without device. She stated that her spouse assists with outside salesman, cooking, cleaning and laundry. She hired a company to come 2x a month to clean.
Patient denied any DME.
She stated that she has had a VN come out through her insurance but is not active with an agency.
Patient has never been to a SNF.
She has a prescription plan and uses [facility] in [place] for all of his medications.
Her PCP is Juliette Dominique.
Patient stated that she will need VN services at discharge and selected [facility]. Will send referral.
Plan: Case management will continue to follow and assist with discharge planning. Home with VN services.
[2024-04-27 15:48] VITALS: BP 115/71
[2024-04-27 15:53] LABS: Glucose - Point of Care 145 mg/dl (70-99)
[2024-04-27 19:00] VITALS: BP 123/69
[2024-04-27] MEDS: NSS 1000 IV (21:42)
[2024-04-27] MEDS: ATIVAN 0.5 MG PO (21:43)
[2024-04-27 21:53] LABS: Glucose - Point of Care 233 mg/dl (70-99)
[2024-04-27 23:00] VITALS: BP 106/62
[2024-04-28 03:00] VITALS: BP 99/63
[2024-04-28 03:30] VITALS: BP 102/59
[2024-04-28] MEDS: LOKELMA 10 GRAM PO (05:48)
[2024-04-28] MEDS: SYNTHROID 200 MCG PO (05:50)
[2024-04-28] MEDS: SENOKOT-S 1 TABLET PO (05:59)
[2024-04-28 06:19] LABS: Hematocrit 25.7 % (37.0-47.0); Hemoglobin 8.3 g/dL (12.0-16.0); Mean Corp Hgb Conc. 32.3 g/dL (33.0-37.0); Mean Corpuscular Hgb 30.1 pg (27.0-31.0); Mean Corpuscular Volume 93.1 fL (81.0-99.0); Mean Platelet Volume 8.9 fL (7.4-10.4); Platelet Count 365 10^3/uL (130-400); Red Blood Cell Count 2.76 10^6/uL (4.20-5.40); Red Cell Dist. Width 14.1 % (11.5-14.5)
[2024-04-28 06:46] LABS: Blood Urea Nitrogen 25 mg/dl (7-17); Carbon Dioxide 20 mmol/L (22-30); Chloride 108 mmol/L (98-107); Estimated Creatinine Clearance 50 ml/min; Glucose 134 mg/dl (70-99); Potassium 4.1 mmol/L (3.5-5.1); Sodium 131 mmol/L (135-145); eGFR > 60.00
[2024-04-28 07:00] VITALS: BP 116/71
[2024-04-28 07:43] LABS: Glucose - Point of Care 174 mg/dl (70-99)
--- NOTE | 2024-04-28 08:20 | W.PN.HOSP.TC ---
Addendum entered and electronically signed by Boris Fernandes MD 04/28/24 09:54:
Note, patient had elevated white count in the ascitic fluid on paracentesis on admission. This was likely due to malignancy and not due to acute infection. This was discussed with Dr. Osman and she agrees.
Original Note:
Today's Communication/Plan
-
d/c
Assessment / Plan
Assessment / Plan
Gen: NAD, AAOx3, appears chronically ill.
Eyes: EOMI, PERRLA, no scleral icterus.
Neck: supple.
CV: remains RRR, +S1/S2, no m/r/g.
Resp: CTAB, no rales, wheezes, or rhonchi.
Abd: +BS, soft, NT, moderate distention with ascites
Skin: No rashes.
Neuro: CN 2-12 intact, non-focal.
Psych: Normal mood and affect.
Hyperkalemia/hyponatremia:
-Patient received D50 water/insulin, Lokelma, 500cc NS in the ER
-s/p IVFs/Lokelma
-s/p 3% NS On 04/27/24
-renal following
Primary Peritoneal Cancer Stage IIIC with recurrent, malignant ascites:
-s/p 1.5L paracentesis 04/26/24
-ONC following
Other problems:
Anemia of chronic disease: trend Hb
Hypocalcemia: s/p IV Ca
DM2: SSI/accuchecks
Anxiety
Hypothyroidism: cont Levoxyl
HLD: cont statin
Extremely poor prognosis. Discussed with Dr. Osman today.
FULL/heparin
Total time spent on d/c = 31 min. This included today's physical exam, progress note, review of laboratory and diagnostic data, preparation of discharge documents and prescriptions, and discussions about the pt's hospital course and discharge plan
with the patient and other medical pathology teacher involved in the patient's care.
Anticipated Discharge: Today
Subjective/Interval History
-
Date of Service: April 28, 2024
Denies chest pain, shortness of breath, abdominal pain.
Objective Data
-
Labs:
Laboratory Results
04/28/24
05:41
WBC 8.0
Hgb 8.3 L
Hct 25.7 L
Plt Count 365
Sodium 131 L
Potassium 4.1
Chloride 108 H
Carbon Dioxide 20 L
BUN 25 H
Creatinine 0.7
Glucose 134 H
Calcium 7.0 L
Vital Signs:
Vital Signs
Temp Pulse Resp BP Pulse Ox
98.0 F 76 18 102/59 99
04/28/24 03:00 04/28/24 03:00 04/28/24 03:00 04/28/24 03:30 04/28/24 03:00
I&O
04/27/24 04/28/24 04/29/24
06:59 06:59 06:59
Intake Total 895 / 895 1005 / 1005
Output Total 100 / 100
Balance 795 / 795 1005 / 1005
[2024-04-28] MEDS: CRESTOR 10 MG PO (08:43)
[2024-04-28] MEDS: HEPARIN 5000 UNITS SC (08:43)
[2024-04-28] MEDS: NOVOLOG FLEXPEN-LOW RESISTANCE 1 UNITS SC (08:44)
[2024-04-28] MEDS: ZOFRAN 4 MG IV (08:53)
[2024-04-28 10:10] VITALS: BP 135/75
--- NOTE | 2024-04-28 13:17 | W.DCSUMMARY ---
Discharge Summary
Discharge Data
Date of Admission: 04/26/24
Date of Discharge: 04/28/24
-
Pending Results: No
Hospital Course
Primary diagnoses:
Hyperkalemia
Hyponatremia
Secondary diagnoses:
Primary Peritoneal Cancer Stage IIIC with recurrent, malignant ascites s/p 1.5L paracentesis 04/26/24
Anemia of chronic disease
Hypocalcemia
Type 2 diabetes mellitus
Anxiety
Hypothyroidism
Hyperlipidemia
Consultants:
Oncology
Nephrology
Imaging:
None
Hospital course: 74-year-old female who presented with a chief complaint of hyperkalemia as outlined in the H&P done on admission. Patient's potassium was 6.3 on admission and improved to 4.1 by the time of discharge. She received D50
water/insulin, Lokelma, 500cc NS in the ER followed by IV fluids and Lokelma. She was found to be hyponatremic and received 3% normal saline on 04/27/24. She was discharged in medically stable condition.
Discharge Plan
-
Patient Disposition: Home (Routine Discharge)
Discharge Diagnosis/Procedures: Hypokalemia and hyponatremia
Condition: Good
Diet: Other diet
Additional Diets: Fluid restrict to 1500 cc/day
Activity: As tolerated
Driving Restrictions: As prior to admission
Blood Work: BMP and CBC in 3 days, prescription from PCP
Referrals:
Catina Romano, DO [Family Provider] - in less than 1 week
Prescriptions:
Continued
nateglinide 120 MG tablet
120 mg PO MEALS
Hold Instructions: Resume on 04/02/24. Check with your primary care physician by 03/25/24 regarding if and when you should resume this medication based on your blood sugar readings.
Patient Comments:
04/01/2024, last filled on 11/09/2023 for 90-day supply; however, pt. has not been eating many meals recently.
levothyroxine 100 MCG tablet
100 mcg PO MOTUWETHFR@0600
metformin 500 mg tablet
1,000 mg PO BIDWMEAL
lorazepam 0.5 mg tablet
0.5 mg PO HS
metoclopramide HCl 5 mg tablet
5 mg PO TIDPRN PRN (Reason: nausea)
rosuvastatin 10 mg tablet
10 mg PO DAILY
levothyroxine 100 mcg Tablet
200 mcg PO SUSA@0600
cholecalciferol (vitamin D3) 25 mcg (1,000 unit) Tablet
25 mcg PO DAILY
ondansetron 8 mg Tablet,Disintegrating
8 mg PO Q8H PRN (Reason: nausea/vomiting)
doxorubicin
1 dose IV . DIRECTED
Patient Comments:
04/26/24: usualy every 4 weeks, last dose 03/27/24
polyethylene glycol 3350 [HealthyLax] 17 gram powder in packet
17 g PO DAILY PRN (Reason: constipation)
docusate sodium [Colace] 100 mg capsule
100 mg PO DAILY PRN (Reason: constipation)
Discharge Orders:
Discharge Patient (As Directed); Ordered 04/28/24
Ordered By: Boris Fernandes
Discharge Date and Time
Discharge Date/Time: 04/28/24 10:59
Print Language: SAMOAN
[2024-04-29 19:52] LABS: CA 125 407 U/mL (0-35)
== END 2024-04-28 10:59 | disposition home or self-care (01) | DRG 641 ==
LOC: 3 WEST ACU 18:30
PROVIDERS: Physician Assistant Medical; Registered Nurse; ADMITTING PHYSICIAN Internal Medicine; CONSULT PHYSICIAN Internal Medicine Hematology & Oncology; CONSULT PHYSICIAN Radiology Vascular & Interventional Radiology; CONSULT PHYSICIAN Student in an Organized Health Care Education/Training Program; EMERGENCY PHYSICIAN Emergency Medicine; FAMILY PHYSICIAN Internal Medicine
PROC: 0W9G3ZZ Drainage of Peritoneal Cavity, Percutaneous Approach (ICD-10-PCS; 2024-04-26)
DX: E87.5 Hyperkalemia (principal); C48.2 Malignant neoplasm of peritoneum, unspecified; R18.0 Malignant ascites; C78.6 Secondary malignant neoplasm of retroperitoneum and peritoneum; E22.2 Syndrome of inappropriate secretion of antidiuretic hormone; I10 Essential (primary) hypertension; E78.5 Hyperlipidemia, unspecified; E03.9 Hypothyroidism, unspecified; E11.9 Type 2 diabetes mellitus without complications; E86.0 Dehydration; E83.51 Hypocalcemia; D63.8 Anemia in other chronic diseases classified elsewhere; F41.9 Anxiety disorder, unspecified; M85.80 Other specified disorders of bone density and structure, unspecified site; M35.3 Polymyalgia rheumatica; N28.9 Disorder of kidney and ureter, unspecified; K59.00 Constipation, unspecified; E86.1 Hypovolemia; Z85.43 Personal history of malignant neoplasm of ovary; Z79.899 Other long term (current) drug therapy; Z87.891 Personal history of nicotine dependence; Z88.8 Allergy status to other drugs, medicaments and biological substances; Z79.84 Long term (current) use of oral hypoglycemic drugs; Z80.41 Family history of malignant neoplasm of ovary; E87.20 Acidosis, unspecified
CPT/HCPCS: 49083; 80048; 80053; 81003; 81015; 82248; 82962; 83036; 83735; 83930; 83935; 84300; 85025; 85027; 86304; 87077; 87086; 87186; 89051; 93005; 96374; 96375; 99284; J2997

== ENCOUNTER → 2024-05-02 10:13 | Outpatient (REF) | payer OTHER, SELFPAY ==
[2024-05-02 10:27] VITALS: BP 131/63; BP_SYST 103
[2024-05-02 11:11] VITALS: BP 120/73
[2024-05-02 12:17] LABS: Body Fluid Mononuclear 93.5 %; Body Fluid Polymorphonuclear 6.5 %; Body Fluid WBC 288 /CUMM
[2024-05-02 12:27] LABS: Body Fluid Second Tech CMB
== END ==
LOC: RADI 10:13
PROVIDERS: ATTENDING PHYSICIAN Nurse Practitioner Family; FAMILY PHYSICIAN Internal Medicine
DX: C48.2 Malignant neoplasm of peritoneum, unspecified (principal); R18.0 Malignant ascites
CPT/HCPCS: 49083; 89051

== ENCOUNTER 2024-05-05 19:43 | Inpatient (IN) | payer OTHER, SELFPAY ==
[2024-05-05] VITALS (11 sets, daily range): BP systolic 103–133; BP diastolic 58–83; BMI 22.2
[2024-05-05 14:28] LABS: Hematocrit 26.5 % (37.0-47.0); Hemoglobin 8.7 g/dL (12.0-16.0); Mean Corp Hgb Conc. 32.8 g/dL (33.0-37.0); Mean Corpuscular Hgb 29.9 pg (27.0-31.0); Mean Corpuscular Volume 91.1 fL (81.0-99.0); Platelet Count 263 10^3/uL (130-400); Red Blood Cell Count 2.91 10^6/uL (4.20-5.40); Red Cell Dist. Width 15.6 % (11.5-14.5)
[2024-05-05 14:32] LABS: White Blood Cell Count 83.4 10^3/uL (4.8-10.8)
[2024-05-05 14:39] LABS: ALT (SGPT) 25 U/L (0-35); AST (SGOT) 31 U/L (14-36); Albumin 2.4 g/dl (3.5-5.0); Alkaline Phosphatase 284 U/L (38-126); Blood Urea Nitrogen 40 mg/dl (7-17); Calcium 8.2 mg/dl (8.4-10.2); Carbon Dioxide 16 mmol/L (22-30); Chloride 108 mmol/L (98-107); Glucose 178 mg/dl (70-99); Magnesium 1.5 mg/dl (1.6-2.3); Potassium 5.3 mmol/L (3.5-5.1); Sodium 132 mmol/L (135-145); Total Bilirubin 0.3 mg/dl (0.2-1.3); Total Protein 4.8 g/dl (6.3-8.2); eGFR 52.08
--- NOTE | 2024-05-05 14:52 | ED.GENMED ---
History of Present Illness
General
Chief Complaint: Breathing Problem
Source: patient, records and family
Exam Limitations: none
Time Seen by Provider: 05/05/24 14:11
Nursing documentation reviewed up to this point in time: agreed with
Travel History
Have you had any contact with someone who has COVID-19?: No
Do you have any symptoms of coronavirus? Fever > 100 degrees, chills, cough, shortness of breath, sore throat, loss of taste or smell, muscle aches, or headache?: Yes
Symptoms:: SOB
History of Present Illness
History of Present Illness:
74-year-old female with a past medical history of hypertension, hyperlipidemia, diabetes, ovarian cancer, primary peritoneal cancer (follows with Dr. Lyons for oncology and is currently on chemotherapy) presents to the emergency department with her
family for evaluation of shortness of breath. Patient is on chemotherapy was started on Doxil March 27 and had her last treatment this past Monday. She has been having recurrent ascites and has had weekly paracentesis recently�last paracentesis
was and she had 1.2 L taken off. She also received Neupogen on . She was just admitted to the hospital 04/26/2024 until 04/28/2024 for hyperkalemia with a potassium of 6.3 that was treated with Lokelma and temporizing measures. She
was also treated for hyponatremia. She presents today for shortness of breath that she says started yesterday�she says she has had constant dyspnea and much worse with exertion�cannot walk more than a few steps without being severely short of
breath. She has had a cough which she says is a recurrent issue with chemotherapy and not necessarily new this week. Cough is nonproductive. She has not had any chest pain. She denies any fevers or chills. She has noted some increased swelling
in her legs for the past few days and in fact she had an outpatient ultrasound 2 days ago because of this which was negative for DVT bilaterally.
Past History
Past History
ED Past Medical History: Cancer (Primary peritoneal cancer.), HTN, Hypercholesterolemia, NIDDM and Hypothyroidism
ED Past Surgical History: Gynecological (Hysterectomy with debulking, tubal ligation), Tonsilectomy and Other
Social History
Tobacco: Non-smoker
Alcohol: Occasional
Drug: None
Personal:
Living: with family
Review of Systems
Review of Systems
All Other Systems: ROS reviewed and negative except as documented in HPI and ROS
Constitutional: Reports fatigue; Denies fever or chills
EENT: Denies sore throat or runny nose
Respiratory: Reports cough and trouble breathing
Cardiac: Denies chest pain or palpitations
ABD/GI: Reports diarrhea; Denies abdominal pain, nausea or vomiting
: Reports flank pain
Musculoskeletal: Reports edema; Denies neck pain or back pain
Neurological: Denies dizzy or headache
Phy Exam
Physical Exam
Physical Exam:
General: Awake, alert, oriented x3; appears chronically ill but in no acute distress
Head: Normocephalic, atraumatic
Eyes: Conjunctiva normal
Throat: Airway intact, dry mucous membranes
Neck: Trachea midline, supple without meningismus
Lungs: Occasional coughing, scattered wheeze and diminished at the lung bases bilaterally; pulse ox is normal at 98% on room air with a respiratory rate of 18-20
Heart: Tachycardia with regular rhythm, no murmurs, gallops, or rubs
Abd: Soft, non distended, nontender
Neuro: No gross deficits
Skin: no rash
Extremities: +1 pitting edema bilateral lower extremities, equal pulses in all extremities
Scores
Heart Failure Risk
Heart Failure Risk Score: Not Applicable
Heart Score for Chest Pain Patients
STEMI patient?: Not applicable
Withdrawal Assessment of Alcohol
Withdrawal Assessment Completed?: Not applicable
Course
Orders/Labs/Results
Orders:
Orders
05/05/24 14:15
Electrocardiogram (*1) Urgent
Reason for Study: Shortness of Breath
EKG- Treatment ONCE
05/05/24 14:17
Complete Blood Count/With Diff Urgent
Comprehensive Metabolic Panel Urgent
Magnesium Urgent
Manual Differential Urgent
05/05/24 14:33
COVID-19 Antigen Urgent
Source: Nasal Swab
Influenza A+B Rapid Molecular Urgent
MADDIE Source: Nasal Swab
Specimen Description:
05/05/24 14:42
NT-proBNP Urgent
05/05/24 14:43
CT Chest Pe Study Urgent
Comment:
Reason For Exam: worsening SOB, h/o ovarian cancer on chemo
0.9% Sodium Chloride 500 ml [Nss] 500 ml IV BOLUS
Abnormal Lab Results
05/05/24
14:17
WBC 83.4 H* 10^3/uL
(4.8-10.8)
RBC 2.91 L 10^6/uL
(4.20-5.40)
Hgb 8.7 L g/dL
(12.0-16.0)
Hct 26.5 L %
(37.0-47.0)
MCHC 32.8 L g/dL
(33.0-37.0)
RDW 15.6 H %
(11.5-14.5)
Abs Neuts (Manual) 70.0 H 10^3/uL
(1.4-6.5)
Segmented Neutrophils 83 H %
(42-75)
Lymphocytes (Manual) 4 L %
(20-51)
Sodium 132 L mmol/L
(135-145)
Potassium 5.3 H mmol/L
(3.5-5.1)
Chloride 108 H mmol/L
(98-107)
Carbon Dioxide 16 L mmol/L
(22-30)
BUN 40 H mg/dl
(7-17)
Creatinine 1.1 H mg/dL
(0.6-1.0)
Glucose 178 H mg/dl
(70-99)
Calcium 8.2 L mg/dl
(8.4-10.2)
Magnesium 1.5 L mg/dl
(1.6-2.3)
Alkaline Phosphatase 284 H U/L
(38-126)
Total Protein 4.8 L g/dl
(6.3-8.2)
Albumin 2.4 L g/dl
(3.5-5.0)
05/05/24 14:17
05/05/24 14:17
Vital Signs
Initial and Last Documented VS:
Initial Vital Signs
Temp Pulse Resp BP Pulse Ox
36.9 C 107 20 133/78 95
05/05/24 13:00 05/05/24 13:00 05/05/24 13:00 05/05/24 13:00 05/05/24 13:00
Last Documented Vital Signs
Temp Pulse Resp BP Pulse Ox
36.9 C 101 19 103/64 98
05/05/24 13:00 05/05/24 17:15 05/05/24 17:15 05/05/24 17:03 05/05/24 17:15
MDM/Problems Addressed
Differential Diagnosis Includes:
Pneumonia, pneumothorax, pleural effusion, pulmonary embolism, CHF, symptomatic anemia
MDM/Problems Addressed:
74-year-old female with history as above notable for peritoneal cancer on chemotherapy and recurrent ascites who has had increasing shortness of breath over the past 24 hours as described above. Tachycardic but otherwise normal vitals. Physical
exam as above. Plan to check labs including CBC and CMP. Will check a proBNP. Will check CTA of the chest to rule out PE and to evaluate for pneumonia or other acute pulmonary pathology. Will provide some gentle fluids as she appears dehydrated
and has had recurrent ascites with weekly paracentesis, also having diarrhea for the past few days. Monitor closely reassess after the above.
Labs reviewed: CBC shows leukocytosis to 83�in the setting of recent Neupogen injection. She has stable anemia at 8.7. CMP shows mild KAT with creatinine of 1.1. She has hyperkalemia 5.3 which has been an ongoing issue for her. She has a mild
nongap metabolic acidosis likely related to her recent diarrhea. CT chest shows no PE and no other acute pathology to account for her symptoms. Her proBNP is elevated to 1000. She has no history of CHF but she has had increasing exertional
dyspnea, increased lower extremity edema and now elevated proBNP�I wonder if she may be exhibiting some signs of congestive heart failure. She did have an echocardiogram however in late March that did not seem to show any signs suggestive of heart
failure. I spoke with hematology to discuss her therapies and whether they might be cardiotoxic and she is not on any cardiotoxic meds at present. We did discuss her significant leukocytosis and they agree likely related to Neupogen. She does
have continued ascites which certainly can cause some dyspnea but she says that her ascites is not nearly as bad as it typically is and therefore I think it is unlikely to cause her acute worsening dyspnea. Clinically patient appears chronically
unwell and is very concerned about going home with her degree of dyspnea�will admit for continued management, trial diuresis. Case discussed with hospitalist.
Chronic conditions affecting care:
Peritoneal cancer on chemotherapy
*Radiology
Radiology exam reviewed: radiology read reviewed
*Pulse Oximetry
Patient hypoxic: no
*EKG
Interpreted by ED Provider?: Yes
Heart Rate: 107
Rate: tachycardiac
Rhythm: sinus and sinus tachycardia
[place]: normal axis
Interval: normal interval
QRS Pattern: low voltage
Ischemia: no ischemia
*Critical Care Note
Total Time (30-74mins, 75-104mins- exclusive of procedures): Not Applicable
Data Reviewed
Review of Other/Old Records Reveals: Labs, Records, Testing and Discharge Summary
Source: patient, records and family
Patient Management
Discussion with other providers: Hospitalist (Discussed case with hospitalist)
Escalation/DeEscalation of care consider admission/obs:
Admission indicated
ED Attending Note
-
Portions of this chart may have been created with voice recognition software.� Occasional wrong word or��sound alike� substitutions may have occurred due to the inherent limitations of voice recognition software.
Discharge Plan
Departure
Patient Disposition: Admit
Date of Disposition: 05/05/24
Time of Disposition: 17:25
Admit to doctor: Candelario
Presentation/result/management discussed w/ accepting MD/DO: Hospitalist
Discharge Problem:
CHF (congestive heart failure), Hyperkalemia
Prescriptions:
No Action
nateglinide 120 MG tablet
120 mg PO MEALS
Hold Instructions: Resume on 04/02/24. Check with your primary care physician by 03/25/24 regarding if and when you should resume this medication based on your blood sugar readings.
levothyroxine 100 MCG tablet
100 mcg PO MOTUWETHFR@0600
metformin 500 mg tablet
1,000 mg PO BIDWMEAL
lorazepam 0.5 mg tablet
0.5 mg PO HS
metoclopramide HCl 5 mg tablet
5 mg PO DAILY
rosuvastatin 10 mg tablet
10 mg PO DAILY
levothyroxine 100 mcg Tablet
200 mcg PO SUSA@0600
cholecalciferol (vitamin D3) 25 mcg (1,000 unit) Tablet
25 mcg PO DAILY
ondansetron 8 mg Tablet,Disintegrating
8 mg PO BID
doxorubicin 10 mg/5 mL Solution
0 mg IV MONTHLY Qty: 0
polyethylene glycol 3350 [HealthyLax] 17 gram powder in packet
17 g PO DAILYPRN PRN (Reason: constipation)
docusate sodium [Colace] 100 mg capsule
100 mg PO DAILYPRN PRN (Reason: constipation)
Referrals:
Gorbos-Spina,Catina, DO [Family Provider] -
Interventions
Interventions:
*Risk Screen - Suicide Last Done: 05/05/24 13:45
*General Assessment Last Done: 05/05/24 13:00
*Neglect/Abuse Screening Last Done: 05/05/24 13:45
ED- Fall Risk Assessment Last Done: 05/05/24 15:02
*ED COVID-19 Vaccine History Last Done: 05/05/24 13:00
ED- Cardiac Assessment Last Done: 05/05/24 13:45
ED- Pulmonary Assessment Last Done: 05/05/24 13:45
Discharge Date and Time
Print Language: LITHUANIAN
[2024-05-05 14:58] LABS: COVID-19 Antigen Negative (Negative)
[2024-05-05] MEDS: NSS 500 IV (14:58)
[2024-05-05 15:15] LABS: NT-proBNP 1040 pg/ml
[2024-05-05 15:26] LABS: Band Neutrophils 1 % (0-3); Segmented Neutrophils 83 % (42-75)
[2024-05-05 15:27] LABS: Lymphocytes 4 % (20-51); Monocytes 6 % (2-9); Myelocytes 6 % (-); Normal RBC Morphology No
[2024-05-05 15:30] LABS: Anisocytosis 1+; Hypochromasia 1+; Microcytosis Slight; Nucleated Red Blood Cells 1 (-); Polychromasia Slight
[2024-05-05 15:31] LABS: Burr Cells Slight; Platelets Checked Yes; Total Cells Counted 100
[2024-05-05] MEDS: ZOFRAN 4 MG IV (17:47)
[2024-05-05] MEDS: LASIX 40 MG IV (17:47)
--- NOTE | 2024-05-05 18:42 | HPS.HSE ---
Family Physician
-
Family Physician: Catina Romano
Chief Complaint
-
Shortness of breath.
History of Present Illness
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
breath and increasing lower extremity edema.
Patient has been having frequent paracentesis every 4 to 7 days over the last 6 weeks. Her last paracentesis was approximately 1 week ago. She had about 1.2 L of fluid removed at that time. Patient then had most recent chemo followed by [facility].
She had diarrhea last night. However over the last 2 days she has had increasing dyspnea on exertion and shortness of breath. She reports that her ascites has returned and now she has new onset of lower extremity edema. She did have ultrasound
of her lower extremities bilaterally personally 3 days ago which was negative for DVTs. Patient denies any chest pain. She denies pleuritic chest pain, cough fevers or chills. She denies any palpitations.
In the ED temp was 98.5, blood pressure was 103/64, pulse 103 oxygen saturation 91%. ECG shows a sinus tachycardia at a rate of 103 with very low voltages. She had a CT of the chest which showed a small pleural effusion and atelectasis. There was
a large volume ascites on imaging. White count was 83.4, hemoglobin 8.7, platelet 263. Chemistries notable for a bicarb of 16 BUN of 40 creatinine of 1.1. Sodium 132 and a potassium of 5.3.
Medical History
Past Medical History
Past Medical History: Reports Hypothyroidism and Other (Peritoneal Cancer )
Additional Past Medical History:
Recurrent Ascites
Recurrent hyponatremia
Recurrent hyperkalemia
Past Surgical History: Reports Gynocological
Social History
Tobacco: Non-smoker
Alcohol: None
Drug: None
Personal: Single
Living: With Family
Employment: Not Employed
Family History
Family History: Not pertinent
Allergies / Home Medications
Allergies reflects when Allergies were last updated in [employer].
Home Medications with original date entered in [employer]
Allergy/Medication List:
Allergies
Allergy/AdvReac Type Severity Reaction Status Date / Time
lisinopril Allergy cough Verified 05/05/24 13:05
Home Medications
levothyroxine 100 mcg tablet 100 mcg PO MOTUWETHFR@0600 Thyroid 11/03/21
nateglinide 120 mg tablet 120 mg PO MEALS Diabetes 11/03/21
lorazepam 0.5 mg tablet 0.5 mg PO HS Mental Health/Anxiety 03/21/24
metformin 500 mg tablet 1,000 mg PO BIDWMEAL Diabetes 03/21/24
metoclopramide HCl 5 mg tablet 5 mg PO DAILY 03/21/24
rosuvastatin 10 mg tablet 10 mg PO DAILY High Cholesterol 03/21/24
cholecalciferol (vitamin D3) 25 mcg (1,000 unit) tablet 25 mcg PO DAILY Supplement 04/01/24
levothyroxine 100 mcg tablet 200 mcg PO SUSA@0600 Thyroid 04/01/24
ondansetron 8 mg disintegrating tablet 8 mg PO BID 04/11/24
docusate sodium 100 mg capsule (Colace) 100 mg PO DAILYPRN PRN constipation 04/26/24
doxorubicin 10 mg/5 mL intravenous solution 0 mg IV MONTHLY ##0 04/26/24
polyethylene glycol 3350 17 gram oral powder packet (HealthyLax) 17 g PO DAILYPRN PRN constipation 04/26/24
Review of Systems
-
History Source: Patient
Constitutional: Reports No Symptoms
EENT: Reports No Symptoms
Respiratory: Reports Trouble Breathing
Cardiac: Reports Other (leg swelling bilaterally)
Abdomen/GI: Reports Abdominal Pain, Diarrhea and Other (Abdominal distension)
: Reports No Symptoms
Musculoskeletal: Reports No Symptoms
Skin: Reports No Symptoms
Neurological: Reports No Symptoms
Endocrine: Reports No Symptoms
Hematologic/Lymphatic: Reports No Symptoms
Psych: Reports No Symptoms
Physical Exam
Vital Signs
Vital Signs
Temp Pulse Resp BP Pulse Ox
98.5 F 103 20 103/64 97
05/05/24 13:00 05/05/24 17:47 05/05/24 17:45 05/05/24 17:47 05/05/24 17:45
Physical Exam
General: Appears in Distress and Appears Chronically Ill
HEENT: NormoCephalic, Anicteric, Moist mucous membranes and PERRLA
Respiratory: Clear
Cardiac: S1/S2 and Regular Rhythm
Breast: Deferred by me
GI: Distended
Rectal: Deferred by Provider
Genito-urinary: Deferred by me
Musculoskeletal: No Clubbing, No Cyanosis, Edema, Left Lower Extremity and Edema, Right Lower Extremity
Skin: Warm
Neuro: AO x 3
Hematologic/Lymphatic: No Lymphadenopathy
Psych: Calm
Laboratory Results
-
05/05/24 14:17
05/05/24 14:17
Laboratory Results
Total Bilirubin 0.3 mg/dl (0.2-1.3) 05/05/24 14:17
AST 31 U/L (14-36) 05/05/24 14:17
ALT 25 U/L (0-35) 05/05/24 14:17
Alkaline Phosphatase 284 U/L (38-126) H 05/05/24 14:17
Data Reviewed
-
CT Scan: Report Reviewed by me
Medical Tests (Nuc Med, Echo, EKG etc): Image Personally Visualized and interpreted
Lab Data: Labs Reviewed by me
Old Records: Reviewed
Impression/Plan
-
IMPRESSION:
Patient with peritoneal cancer complicated by large recurrent ascites with frequent therapeutic paracentesis presents to ED with new onset bilateral lower extremity edema and shortness of breath. No pulmonary edema on CT scan. Oxygenation is
normal on room air. However she does have elevated BNP. Possibly right sided heart failure versus inferior vena cava syndrome.
PLAN:
1. Volume overload - Total body volume overload but likley intravascularly normally. Ascites, bilateral leg edema and elevated BNP. Recent echo 12 days ago showing left ventricle is small in size. Hyperdynamic left ventricular systolic function.
Left ventricular ejection fraction is 74% by Painter's method. Mild concentric left ventricular remodeling with discrete upper septal thickening. Normal right ventricular size and function. No mention of pericardial effusion. On doxurubicin.
Renal function is slightly worse than prior.
- admit to telemetry
- lasix 40mg iv q 12 for now
- cardiology consult before repeating echo
- daily weights
- fluid restriction for now
- if cr rises, will need echo and w/u for possibly no cardiac cause of fluid retention
- therapeutic paracentesis.
2. Peritoneal carcinomatosis
- s/p GMCSF which explains leukocytosis, no signs of active infection
- supportive care with pain control, antiemetics
3. DM II
- hold metformin
- insulin sliding scale for now
DVT PPX w/ lovenox sq
Full code
[2024-05-05 21:15] LABS: Glucose - Point of Care 198 mg/dl (70-99)
[2024-05-05] MEDS: ATIVAN 0.5 MG PO (22:11)
[2024-05-06] VITALS (9 sets, daily range): BP systolic 98–124; BP diastolic 51–71; BMI 22.1
[2024-05-06] MEDS: SYNTHROID 100 MCG PO (05:37)
[2024-05-06 06:33] LABS: Hematocrit 23.3 % (37.0-47.0); Hemoglobin 7.6 g/dL (12.0-16.0); Mean Corp Hgb Conc. 32.6 g/dL (33.0-37.0); Mean Corpuscular Hgb 30.2 pg (27.0-31.0); Mean Corpuscular Volume 92.5 fL (81.0-99.0); Mean Platelet Volume 9.3 fL (7.4-10.4); Platelet Count 216 10^3/uL (130-400); Red Blood Cell Count 2.52 10^6/uL (4.20-5.40); Red Cell Dist. Width 15.8 % (11.5-14.5)
[2024-05-06 06:53] LABS: Blood Urea Nitrogen 37 mg/dl (7-17); Calcium 7.5 mg/dl (8.4-10.2); Carbon Dioxide 20 mmol/L (22-30); Chloride 108 mmol/L (98-107); Estimated Creatinine Clearance 36 ml/min; Glucose 91 mg/dl (70-99); Magnesium 1.4 mg/dl (1.6-2.3); Potassium 4.6 mmol/L (3.5-5.1); Sodium 136 mmol/L (135-145); eGFR 58.39
[2024-05-06 07:24] LABS: White Blood Cell Count 75.6 10^3/uL (4.8-10.8)
[2024-05-06 07:46] LABS: Glucose - Point of Care 157 mg/dl (70-99)
[2024-05-06] MEDS: REGLAN 5 MG PO (07:50)
[2024-05-06] MEDS: CRESTOR 10 MG PO (07:50)
[2024-05-06] MEDS: VITAMIN D3 (cholecalciferol) 25 MCG PO (07:50)
[2024-05-06] MEDS: LASIX 40 MG IV ×2 (07:51→17:21)
[2024-05-06 09:33] LABS: Body Fluid WBC 379 /CUMM
[2024-05-06 09:46] LABS: Body Fluid Second Tech AMA
--- NOTE | 2024-05-06 12:12 | CON.CAR ---
Addendum entered and electronically signed by Yuridia Cummings DO 05/06/24 15:55:
I saw and examined the patient.
The Regulatory Affairs Spec's note was reviewed and I agree with the note.
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
presents to the emergency department with worsening shortness of breath and increasing lower extremity edema. Patient has been having frequent paracentesis every 4 to 7 days over the last 6 weeks. Her last paracentesis was approximately 1 week ago.
She had about 1.2 L of fluid removed at that time. Patient then had most recent chemo followed by [facility]. She admits to poor appetite as well as some loose stools and intermittent episodes of constipation. She denies bright blood per rectum or
melena. She denies chest pain or pressure. Patient was just admitted to 04/26/24 until 04/28/24 for electrolyte abnormalities. Patient received 2.5 L of IVFs that admission to help correct sodium and potassium. Patient also had paracentesis that
admission and when she was discharged to home she says she weighed 114 lbs. Patient noticed within a couple of days that she had increased LE edema and increased bloating prompting her return Monday to the ED: pro-BNP was 1040. Hemoglobin 7.6,
WBC 75.6. CTA was negative for PE, but suggested a small left sided pleural effusion. No reported pericardial effusion. She also has stable elevation of the right hemidiaphragm with atelectasis of the right lung base and a 2 cm hiatal hernia. As
on prior study there was also large volume ascites in the abdomen p. This morning prior to our visit she had undergone successful ultrasound-guided paracentesis which removed 3700 cc Patient has been ordered Lasix 40 mg IV BID since admission and
recorded weight is down 4 lbs, but patient reports minimal symptomatic improvement.
GEN: Frail appearing. AAOx3. Lying supine on left side with nasal cannula O2
HEENT: mmm
LUNGS: Bronchovesicular breath sounds decreased at the bases left greater than right. Fine crackles. No wheezes.
CV: Reg, S1/S2, no murmur
ABD: Soft, distended. Positive bowel sounds. Nontender
EXT: +1 B/L LE edema.
Echo 04/24/24: EF 74%, mild concentric LVH with discrete upper septal thickening, normal RV size and function, global longitudinal strain normal, -20.8%, aortic sclerosis without stenosis, mild TR with PAP 41 mmHg
Plan:
-Acute hypoxic respiratory insufficiency, multifactorial with large volume ascites, right hemidiaphragm with atelectasis, anemia with hemoglobin 7.6, and a component of heart failure with preserved ejection fraction following recent IV fluid
administration
-CTA without evidence of pulmonary embolism or concern for pneumonia
-Recent 2D echocardiogram with vigorous/preserved LV systolic function with normal global longitudinal strain. No hemodynamically significant valve pathology. No pericardial effusion. No need to repeat study at this time
-Reports improved symptoms following large-volume paracentesis this morning
-pro-BNP was 1040
-Continue IV Lasix; patient was not taking a diuretic prior to admission
-Possible transfusion of packed red blood cells which was discussed with hospitalist. If patient given blood products would follow with IV Lasix
-Talked with patient about other contributors to edema being low albumin and protein levels and encouraged to continue trying her best to eat even though she does not have an appetite.
-ECG reviewed by me shows sinus tachycardia without ischemic changes. No chest pain suggestive of angina.
-Reviewed all of the above with patient's granddaughter who is sitting bedside.
Will follow with you
Original Note:
Consultation
Consultation Request
Date/Time Consultation Requested: 05/05/24 at 1856
Date/Time Consultation Performed: 05/06/24 at 1130
Requesting Provider: Dr. Mccloud
Performing Provider: Dr. Cummings
Reason for Consultation: Acute HFpEF
Medical History
-
History of Present Illness:
Patient came to [facility] Monday with increased SOB and was admitted with acute HF and now cardiology is consulted. Patient was just admitted to 04/26/24 until 04/28/24 for electrolyte abnormalities. Patient received 2.5 L of IVFs that admission to
help correct sodium and potassium. Patient also had paracentesis that admission and when she was discharged to home she says she weighed 114 lbs. Patient noticed within a couple of days that she had increased LE edema and increased bloating. She
started with resting SOB and came back to [facility] on Monday. pro-BNP was 1040. CT was negative for PE, but suggested a small left sided pleural effusion. Patient has been ordered Lasix 40 mg IV BID since admission and recorded weight is down 4 lbs,
but patient reports minimal symptomatic improvement. No chest pain.
PMH:
Primary peritoneal cancer stage IIIC with recurrent, malignant ascites
Chronic anemia
Recent admission for hyponatremia and hyperkalemia 04/26/24 until 04/28/24
DM 2
Hypothyroidism
Hyperlipidemia
Past Medical History
Past Medical History: Other (in HPI)
Past Surgical History: Tonsilectomy and Other (CHAVEZ-BSO and partial bowel resection for cancer 2020)
Social History
Tobacco: Former Smoker
Alcohol: None
Drug: None
Personal:
Living: With Family
Family History
Family History: Diabetes and Other (daughter with Down syndrome)
Allergies / Home Medications
Allergy/AdvReac Type Severity Reaction Status Date / Time
lisinopril Allergy cough Verified 05/05/24 13:05
�Medication �Instructions �Recorded �Confirmed �Type
levothyroxine 100 mcg tablet 100 mcg PO MOTUWETHFR@0600 Thyroid 11/03/21 05/05/24 History
nateglinide 120 mg tablet 120 mg PO MEALS Diabetes 11/03/21 05/05/24 History
lorazepam 0.5 mg tablet 0.5 mg PO HS Mental Health/Anxiety 03/21/24 05/05/24 History
metformin 500 mg tablet 1,000 mg PO BIDWMEAL Diabetes 03/21/24 05/05/24 History
metoclopramide HCl 5 mg tablet 5 mg PO DAILY nausea 03/21/24 05/05/24 History
rosuvastatin 10 mg tablet 10 mg PO DAILY High Cholesterol 03/21/24 05/05/24 History
cholecalciferol (vitamin D3) 25 25 mcg PO DAILY Supplement 04/01/24 05/05/24 History
mcg (1,000 unit) tablet
levothyroxine 100 mcg tablet 200 mcg PO SUSA@0600 Thyroid 04/01/24 05/05/24 History
ondansetron 8 mg disintegrating 8 mg PO BID nausea 04/11/24 05/05/24 History
tablet
docusate sodium 100 mg capsule 100 mg PO DAILYPRN PRN constipation 04/26/24 05/05/24 History
(Colace)
doxorubicin 10 mg/5 mL intravenous 0 mg IV MONTHLY ##0 04/26/24 05/05/24 History
solution
polyethylene glycol 3350 17 gram 17 g PO DAILYPRN PRN constipation 04/26/24 05/05/24 History
oral powder packet (HealthyLax)
Review of Systems
-
History Source: Patient and Family (granddaughter sitting bedside and helping with HPI)
All other systems: Negative unless noted
Physical Exam
Vital Signs
Temp Pulse Resp BP Pulse Ox
97.8 F 98 17 109/52 97
05/06/24 08:08 05/06/24 08:48 05/06/24 08:48 05/06/24 08:48 05/06/24 08:45
GEN: Frail appearing. AAOx3
HEENT: EOMI, MMM
LUNGS: CTA B/L without wheeze or rales
CV: Reg, S1/S2, no murmur
ABD: soft, BS+, NT, ND
EXT: +1 B/L LE edema. No clubbing, cyanosis or lesions B/L
NEURO: Gross non-focal
SKIN: Warm, dry and pink. No rash
Lab Results
05/06/24 05:10
05/06/24 05:10
Gty-F-Wlnleqpgcei Pept 1040 pg/ml 05/05/24 14:42
Impression / Plan
-
PCP: Dr. Romano
Cardiology: None prior to admission, but her daughter with Down syndrome follows with Dr. Karin Jones
Impression:
Acute hypoxic respiratory insufficiency
Acute HFpEF
Recurrent ascites
Primary peritoneal cancer stage IIIC with recurrent, malignant ascites
Acute on chronic anemia
Leukocytosis
Recent admission for hyponatremia and hyperkalemia 04/26/24 until 04/28/24
DM 2
Hypothyroidism
Hyperlipidemia
Hypomagnesemia
Echo 04/24/24: EF 74%, mild concentric LVH with discrete upper septal thickening, normal RV size and function, global longitudinal strain -20.8%, aortic sclerosis without stenosis, mild TR with PAP 41 mmHg
Plan:
-Patient came to [facility] Monday with increased SOB and was admitted with acute HF and now cardiology is consulted. Patient was just admitted to 04/26/24 until 04/28/24 for electrolyte abnormalities. Patient received 2.5 L of IVFs that admission to
help correct sodium and potassium. Patient also had paracentesis that admission and when she was discharged to home she says she weighed 114 lbs. Patient noticed within a couple of days that she had increased LE edema and increased bloating. She
started with resting SOB and came back to [facility] on Monday. pro-BNP was 1040. CT was negative for PE, but suggested a small left sided pleural effusion. Patient has been ordered Lasix 40 mg IV BID since admission and recorded weight is down 4 lbs,
but patient reports minimal symptomatic improvement. No chest pain.
-Patient is s/p repeat paracentesis today and reports symptomatic improvement in bloating, but no noticeable increase in urine output with Lasix 40 mg IV BID. Despite lack of significant symptomatic improvement patient's weight is overall down 4 lbs
since admission. Dry weight prior to admission was 114 lbs per patient.
-Cont Lasix 40 mg IV BID, patient was not taking a diuretic prior to admission.
-Talked with patient and granddaughter about avoiding overhydration with IVFs in the future.
-Talked with hospitalist attending and transfusion is being considered. Patient had her last transfusion about a year ago when Hgb was below 7.
-No need to repeat echo.
-Talked with patient about other contributors to edema being low albumin and protein levels and encouraged to continue trying her best to eat even though she does not have an appetite.
-ECG reviewed by me shows sinus tachycardia without ischemic changes.
-Reviewed all of the above with patient's granddaughter who is sitting bedside.
[2024-05-06 12:25] LABS: Glucose - Point of Care 167 mg/dl (70-99)
--- NOTE | 2024-05-06 12:25 | CM ---
Medical records reviewed. Patient was recently at from 04/26/24 to 04/28/24. Assessment information from previous admissions confirmed with patient. Met with patient who lives with her in a 1 story condo on the 3rd floor of an elevator
building, no steps to enter, no DME or in-home services. 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 Patient does drive. No history of Psychiatric hospitalizations. Has been having paracentesis' at .
Ph[facility] is [facility] [place] and PCP is Dr. Catina Lopes-Spine.
Discharge Plan of Care: Discussed initiation of HH services with patient. She would like to think about it before committing.
[2024-05-06] MEDS: ZOFRAN 4 MG IV (13:09)
[2024-05-06] MEDS: NOVOLOG FLEXPEN-LOW RESISTANCE 1 UNITS SC ×2 (13:09→17:17)
--- NOTE | 2024-05-06 13:22 | W.PN.HOSP.TC ---
Today's Communication/Plan
-
Diuresis
Cardiology consult
Monitor hemoglobin
Replete magnesium
Assessment / Plan
Assessment / Plan
Gen-AAOx3, NAD
HEENT-NC, AT, anicteric, clear oral mm
Neck-supple
CV-reg, no M, +S1/S2
Lungs-clear B/L
Abd-soft, NT, ND
Ext-no edema
Musculoskeletal-no cyanosis, clubbing
Skin-warm and dry
Neuro-grossly non-focal
Psych-calm, cooperative
Acute hypoxic respiratory insufficiency -oxygenation adequate on room air. Etiology of shortness of breath unclear but possibilities include symptomatic ascites, congestive heart failure, etc. No evidence of pulmonary embolism on CT.
Presumed congestive heart failure exacerbation -unknown type but likely preserved EF exacerbation. Continue IV Lasix, cardiology consulted.
Symptomatic malignant ascites -gets at least weekly paracenteses, had another procedure today. Apparently was approved for an indwelling catheter for outpatient drainage but has not yet been scheduled.
Primary peritoneal carcinomatosis -under treatment with chemotherapy by Dr. Lyons.
Acute on chronic anemia -baseline hemoglobin averages 9-10, currently 7.6 as of this morning. No obvious bleeding. MCV normal. Will consider transfusion if hemoglobin drops further. Discussed with patient. Her last transfusion was about a year
ago.
Hyperkalemia -present on admission. Resolved.
Hypomagnesemia -magnesium 1.4. Will replete.
Prerenal azotemia -present on admission. Resolved. Normal anion gap metabolic acidosis noted.
Leukocytosis -received GM-CSF recently.
Hypothyroidism -continue levothyroxine.
DM2 without hyperglycemia -on nateglinide with meals, & metformin at home. Glucose 91 this morning.
Hyperlipidemia -on rosuvastatin.
Anxiety disorder
Full code
Anticipated Discharge: > 48 hours
Subjective/Interval History
-
Date of Service: May 06, 2024
Patient seen and examined. Complaining of nausea.
Objective Data
-
Labs:
Laboratory Results
05/06/24
05:10
WBC 75.6 H*
Hgb 7.6 L
Hct 23.3 L
Plt Count 216
Sodium 136
Potassium 4.6
Chloride 108 H
Carbon Dioxide 20 L
BUN 37 H
Creatinine 1.0
Glucose 91
Calcium 7.5 L
Vital Signs:
Vital Signs
Temp Pulse Resp BP Pulse Ox
98.7 F 104 16 113/71 97
05/06/24 11:40 05/06/24 11:40 05/06/24 11:40 05/06/24 11:40 05/06/24 11:40
I&O
05/05/24 05/06/24 05/07/24
06:59 06:59 06:59
Intake Total 480 / 480
Output Total 50 / 50
Balance 430 / 430
Review of Systems
-
History Source: Patient
All other systems: Reviewed and negative
[2024-05-06] MEDS: NON-FORMULARY ITEM 120 MG PO ×2 (14:08→17:16)
[2024-05-06] MEDS: MAGNESIUM SULFATE 50 IV (14:09)
[2024-05-06 16:48] LABS: Glucose - Point of Care 198 mg/dl (70-99)
[2024-05-06] MEDS: LOVENOX 40 MG SC (17:16)
[2024-05-06] MEDS: ATIVAN 0.5 MG PO (21:52)
[2024-05-06 21:54] LABS: Glucose - Point of Care 138 mg/dl (70-99)
[2024-05-07 03:12] VITALS: BP 107/54
[2024-05-07 05:28] VITALS: BMI 20.2
[2024-05-07] MEDS: SYNTHROID 100 MCG PO (06:14)
[2024-05-07 06:41] LABS: % Basophils 0.1 % (0-2); % Eosinophils 0.2 % (0-6); % Immature Granulocytes 3.4 % (0-0.5); % Lymphocytes 2.9 % (20.5-51.1); % Monocytes 5.3 % (1.7-9.3); % Neutrophils 88.1 % (42.2-75.2); Absolute Eosinophils 0.1 10^3/uL (0-0.7); Absolute Immature Granulocytes 1.5 10^3/uL (0-0.05); Absolute Lymphocytes 1.3 10^3/uL (1.2-3.4); Absolute Monocytes 2.4 10^3/uL (0.1-0.6); Absolute Neutrophils 39.6 10^3/uL (1.4-6.5); Hemoglobin 8.2 g/dL (12.0-16.0); Mean Corp Hgb Conc. 32.8 g/dL (33.0-37.0); Mean Corpuscular Hgb 29.5 pg (27.0-31.0); Mean Corpuscular Volume 89.9 fL (81.0-99.0); Nucleated Red Blood Cells % 0.3 %; Platelet Count 176 10^3/uL (130-400); Red Blood Cell Count 2.78 10^6/uL (4.20-5.40); Red Cell Dist. Width 15.8 % (11.5-14.5)
[2024-05-07 06:52] LABS: Blood Urea Nitrogen 35 mg/dl (7-17); Calcium 7.2 mg/dl (8.4-10.2); Carbon Dioxide 21 mmol/L (22-30); Chloride 105 mmol/L (98-107); Estimated Creatinine Clearance 45 ml/min; Glucose 163 mg/dl (70-99); Magnesium 1.8 mg/dl (1.6-2.3); Potassium 4.4 mmol/L (3.5-5.1); Sodium 131 mmol/L (135-145); eGFR > 60.00
[2024-05-07 06:54] LABS: White Blood Cell Count 44.9 10^3/uL (4.8-10.8)
[2024-05-07 07:15] VITALS: BP 106/56
[2024-05-07 07:38] LABS: Glucose - Point of Care 136 mg/dl (70-99)
[2024-05-07] MEDS: NOVOLOG FLEXPEN-LOW RESISTANCE SC (08:09)
[2024-05-07] MEDS: REGLAN 5 MG PO (08:09)
[2024-05-07] MEDS: VITAMIN D3 (cholecalciferol) 25 MCG PO (08:09)
[2024-05-07] MEDS: CRESTOR 10 MG PO (08:09)
[2024-05-07] MEDS: ZOFRAN 4 MG IV (08:09)
[2024-05-07] MEDS: LASIX 40 MG IV (08:10)
[2024-05-07] MEDS: NON-FORMULARY ITEM 120 MG PO ×2 (08:10→11:56)
[2024-05-07 11:10] VITALS: BP 113/65
[2024-05-07 11:49] LABS: Glucose - Point of Care 220 mg/dl (70-99)
[2024-05-07] MEDS: NOVOLOG FLEXPEN-LOW RESISTANCE 2 UNITS SC (11:55)
--- NOTE | 2024-05-07 12:26 | W.PN.CARDCBS ---
Today's Communication / Plan
-
Switch to p.o. Lasix 40 mg daily
Check BMP in 1 to 2 weeks
Trial compression stockings
Impression / Plan
-
PCP: Dr. Romano
Cardiology: None prior to admission, but her daughter with Down syndrome follows with Dr. Karin Jnoes
Impression:
Acute hypoxic respiratory insufficiency
Acute HFpEF
Recurrent ascites
Primary peritoneal cancer stage IIIC with recurrent, malignant ascites
Acute on chronic anemia
Leukocytosis
Recent admission for hyponatremia and hyperkalemia 04/26/24 until 04/28/24
DM 2
Hypothyroidism
Hyperlipidemia
Hypomagnesemia
Echo 04/24/24: EF 74%, mild concentric LVH with discrete upper septal thickening, normal RV size and function, global longitudinal strain -20.8%, aortic sclerosis without stenosis, mild TR with PAP 41 mmHg
Patient came to [facility] Monday with increased SOB and was admitted with acute HF and now cardiology is consulted. Patient was just admitted to 04/26/24 until 04/28/24 for electrolyte abnormalities. Patient received 2.5 L of IVFs that admission to
help correct sodium and potassium. Patient also had paracentesis that admission and when she was discharged to home she says she weighed 114 lbs. Patient noticed within a couple of days that she had increased LE edema and increased bloating. She
started with resting SOB and came back to [facility] on Monday. pro-BNP was 1040. CT was negative for PE, but suggested a small left sided pleural effusion. Patient has been ordered Lasix 40 mg IV BID since admission and recorded weight is down 4 lbs,
but patient reports minimal symptomatic improvement. No chest pain.
Plan:
-Presenting with worsening abdominal distention and peripheral edema and admitted for decompensated heart failure
-She has a history of recurrent malignant ascites and symptoms improved following paracentesis
-Suspect peripheral edema is at least in part related to low oncotic pressure with low albumin/protein as it is heart failure
-Dry weight prior to admission was 114 lbs per patient, went down to 106 pounds today
-Switch from IV to p.o. Lasix today, will discharge on 40 mg Lasix daily
-Should have outpatient BMP in 1 to 2 weeks to reassess renal function
-Compression stockings would be beneficial
We will sign off, please recall as needed
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
Subjective
Date of Service: May 07, 2024
No acute overnight events. Symptomatically improved following paracentesis. No shortness of breath on room air.
Objective
Labs:
05/07/24 06:11
05/07/24 06:11
Labs
Hgb 8.2 g/dL (12.0-16.0) L 05/07/24 06:11
Hct 25.0 % (37.0-47.0) L 05/07/24 06:11
Plt Count 176 10^3/uL (130-400) 05/07/24 06:11
Sodium 131 mmol/L (135-145) L 05/07/24 06:11
Potassium 4.4 mmol/L (3.5-5.1) 05/07/24 06:11
BUN 35 mg/dl (7-17) H 05/07/24 06:11
Creatinine 0.8 mg/dL (0.6-1.0) 05/07/24 06:11
Glucose 163 mg/dl (70-99) H 05/07/24 06:11
Vital Signs and I&O:
Vital Signs
Temp Pulse Resp BP Pulse Ox
97.3 F 88 16 106/56 100
05/07/24 07:15 05/07/24 07:15 05/07/24 07:15 05/07/24 07:15 05/07/24 07:15
Vital Signs
Temp Pulse Resp BP Pulse Ox
97.3 F 88 16 106/56 100
05/07/24 07:15 05/07/24 07:15 05/07/24 07:15 05/07/24 07:15 05/07/24 07:15
Intake & Output
05/05/24 05/06/24 05/07/24 05/08/24
06:59 06:59 06:59 06:59
Intake Total 480 / 480 920 / 920
Output Total 50 / 50 525 / 525
Balance 430 / 430 395 / 395
Physical Exam
Physical Exam
Gen: NAD, AAOx3
HEENT: NC/AT, sclera anicteric
Neck: No JVD
CV: RRR, NL s1/s2
Lungs: CTAB
Abd: Distended, soft
Ext: Trace LE edema
Skin: Warm, dry
Neuro: Non-focal
--- NOTE | 2024-05-07 12:48 | W.PN.HOSP.TC ---
Addendum entered and electronically signed by David Mccloud DO 05/07/24 15:19:
severe malnutrition in the context of chronic illness
Original Note:
Today's Communication/Plan
-
Discharge
Assessment / Plan
Assessment / Plan
Gen-AAOx3, NAD
HEENT-NC, AT, anicteric, clear oral mm
Neck-supple
CV-reg, no M, +S1/S2
Lungs-clear B/L
Abd-soft, NT, ND
Ext-no edema
Musculoskeletal-no cyanosis, clubbing
Skin-warm and dry
Neuro-grossly non-focal
Psych-calm, cooperative
Acute hypoxic respiratory insufficiency -oxygenation adequate on room air. Etiology of shortness of breath unclear but possibilities include symptomatic ascites, congestive heart failure, etc. No evidence of pulmonary embolism on CT.
Acute heart failure with preserved EF exacerbation -clinically improved. Discussed with cardiology, can discharge on Lasix 40 mg daily. BMP in 2 weeks. Last echocardiogram was 04/24/2024, LVEF 74%, mild concentric LVH.
Symptomatic malignant ascites -gets at least weekly paracenteses, had another procedure today. Apparently was approved for an indwelling catheter for outpatient drainage but decision was made to abort due to concern over potential electrolyte
abnormalities as a result of drainage.
Primary peritoneal carcinomatosis -under treatment with chemotherapy by Dr. Lyons.
Acute on chronic anemia -baseline hemoglobin averages 9-10. Hemoglobin spontaneously improved to 8.2 this morning. Monitor as outpatient.
Hyperkalemia -present on admission. Resolved.
Hypomagnesemia -resolved.
Prerenal azotemia -present on admission. Resolved. Normal anion gap metabolic acidosis noted.
Leukocytosis -received GM-CSF recently.
Hypothyroidism -continue levothyroxine.
DM2 without hyperglycemia -on nateglinide with meals, & metformin at home. Glucose 163 this morning.
Hyperlipidemia -on rosuvastatin.
Anxiety disorder
Full code
Dispo -medically stable for discharge. Outpatient follow-up. Updated family at the bedside. Set up visiting nursing.
32-minute spent in discharge process.
Anticipated Discharge: Today
Subjective/Interval History
-
Date of Service: May 07, 2024
Patient seen and examined. Overall feeling better other than cough.
Objective Data
-
Labs:
Laboratory Results
05/07/24
06:11
WBC 44.9 H*
Hgb 8.2 L
Hct 25.0 L
Plt Count 176
Sodium 131 L
Potassium 4.4
Chloride 105
Carbon Dioxide 21 L
BUN 35 H
Creatinine 0.8
Glucose 163 H
Calcium 7.2 L
Vital Signs:
Vital Signs
Temp Pulse Resp BP Pulse Ox
97.3 F 88 16 106/56 100
05/07/24 07:15 05/07/24 07:15 05/07/24 07:15 05/07/24 07:15 05/07/24 07:15
I&O
05/06/24 05/07/24 05/08/24
06:59 06:59 06:59
Intake Total 480 / 480 920 / 920
Output Total 50 / 50 525 / 525
Balance 430 / 430 395 / 395
Review of Systems
-
History Source: Patient
All other systems: Reviewed and negative
--- NOTE | 2024-05-07 12:57 | PN.CDI ---
CDI
- -
CDI:
Physician Documentation Request
Admit Date: 05/05/24 19:43
Dear Doctor Ame,
05/06 note states 'CBW: 117 lb BMI 22.1 normal range (underweight for adults > 65 years)..... Pt weighed 119 lb 11/14/23 reflective of 10.9% weight loss x~6 months significant for ASPEN. NFPE: mild muscle loss of temples and clavicles noted...
Per ASPEN/AND guidelines, pt meets for severe malnutrition in the context of chronic illness as evidenced by 10.9% weight loss x ~ 6 months, < 75% intake estimated needs x ~ 6 months, muscle loss, edema. '
Based on the above information and your assessment, which of the following most accurately represents the patient's nutritional status?
Malnutrition (specify if mild, moderate or severe)
Underweight without malnutrition
No nutritional deficiency
Other (please specify)
[place] Criteria (ACP Hospitalist 2017)
2 or more criteria must be present for either
non severe or severe malnutrition
Note that the criteria differs related to the
presence of an acute or chronic illness
Acute Illness Chronic Illness
Energy Intake Non Severe: <75% for >7 days Non Severe: <75% for >1 month
Severe: <50% for >5 days Severe: <75% for >1 month
Weight Loss Non Severe: 1-2% over 1 week Non Severe: 5% over 1 month
5% over 1 month 7.5% over 3 months
7.5% over 3 months 10% over 6 months
1 year N/A 20% over 1 year
Severe: >2% over 1 week Severe: >5% over 1 month
>5% over 1 month >7.5% over 3 months
>7.5% over 3 months >10% over 6 months
1 year N/A >20% over 1 year
Body Fat Non Severe: Mild Decrease Non Severe: Mild Loss
Severe: Moderate Decrease Severe: Severe Loss
Muscle Mass Non Severe: Mild Decrease Non Severe: Mild Loss
Severe: Moderate Decrease Severe: Severe Loss
Fluid Accumulation Non Severe: Mild Accumulation Non Severe: Mild Accumulation
Severe: Moderate to severe Severe: Moderate to severe
accumulation accumulation
Reduced Molded [employer] Cutter Strength Non Severe: N/A Non Severe: N/A
Severe: Measurably reduced Severe: Measurably reduced
Additional criteria that can be used to Determine if Mild or Moderate Malnutrition (Merck Manual 2018)
Mild Moderate Severe
Albumin gm/dl <3.0 gm/dl <2.5 gm/dl <2.0 gm/dl
Pre Albumin mg/dl <15 gm/dl <10 mg/dl <5.0 mg/dl
BMI <18.5 <17 <16
Use of terms such as suspected, likely, concern for, or probable (associated with a specific diagnosis that is being evaluated, monitored, or treated as if it exists) are acceptable and can be coded in the inpatient setting, when documented at the
time of discharge.
Thank you,
Bailey Medley RN, BSN
CDI Specialist
tiger text
Please use your independent medical judgment in providing your response.
--- NOTE | 2024-05-07 13:07 | W.DS.TRANS ---
DC Summary - Care Transitions Manager
-
Discharge Instructions:
Discharge Diagnosis/Procedures Heart failure exacerbation, symptomatic ascites,
acute on chronic anemia, electrolyte
abnormalities
Diet Other diet
Additional Diets 4 g sodium diet
Activity With assistance,As tolerated
Driving Restrictions No driving
Bathing Restrictions None
Blood Work BMP in 2 weeks with your primary care doctor
Other Services VN
Instructions:
Stand-Alone Forms:
Changes to Home Medications: No
Discharge Medications:
DC Medications w/original date entered in [facility]
levothyroxine 100 mcg tablet 100 mcg PO MOTUWETHFR@0600 Thyroid 11/03/21
nateglinide 120 mg tablet 120 mg PO MEALS Diabetes 11/03/21
lorazepam 0.5 mg tablet 0.5 mg PO HS Mental Health/Anxiety 03/21/24
metformin 500 mg tablet 1,000 mg PO BIDWMEAL Diabetes 03/21/24
metoclopramide HCl 5 mg tablet 5 mg PO DAILY nausea 03/21/24
rosuvastatin 10 mg tablet 10 mg PO DAILY High Cholesterol 03/21/24
cholecalciferol (vitamin D3) 25 mcg (1,000 unit) tablet 25 mcg PO DAILY Supplement 04/01/24
levothyroxine 100 mcg tablet 200 mcg PO SUSA@0600 Thyroid 04/01/24
ondansetron 8 mg disintegrating tablet 8 mg PO BID nausea 04/11/24
docusate sodium 100 mg capsule (Colace) 100 mg PO DAILYPRN PRN constipation 04/26/24
polyethylene glycol 3350 17 gram oral powder packet (HealthyLax) 17 g PO DAILYPRN PRN constipation 04/26/24
furosemide 40 mg tablet 40 mg PO DAILY #30 tabs 05/07/24
Home Medication Changes
Pending Results: No
[2024-05-07 15:05] VITALS: BP 133/79
--- NOTE | 2024-05-07 15:24 | VATNOTE ---
right subq port deaccessed per protocol. Brisk blood return noted prior to.
--- NOTE | 2024-05-07 15:41 | CM ---
Patient seen at bedside with family present. IMM completed and form placed on chart. Patient requesting [facility], CM updated Liaison. Patient plan is for discharge home with son to provide transportation. CM will continue to follow for discharge
planning needs.
Plan; home with [facility]
--- NOTE | 2024-05-07 16:24 | VNURNOTE ---
Home Health Liaison spoke with patient at 1615 to discuss [facility] nurse/therapy, visits, schedule and homebound status. Patient is agreeable and understands that visits at home will be 2-3 x per week to assess and teach medical management. Patient has
a scale and is able to log a daily weight.
Patient is aware that [facility] will contact her for start of care in 1-2 days after discharge from .
[facility] referral completed in [facility].
--- NOTE | 2024-05-08 14:04 | W.HF.CON ---
Heart Failure
- LV Function
Left ventricular function study result: LV Ejection fraction >40%
Ejection Fraction Percentage: 74
- ARNI
Patient already on ARNI: No
Heart Failure ARNI Not Indicated: LV Ejection Fraction >/= 40%
- ACEI/ARB
Patient already on ACEI/ARB: No
Heart Failure ACEI/ARB Not Indicated: LV Ejection Fraction > 40%
- Beta Yohana
Patient already on Evidence Based Beta Yohana: No
Heart Failure Evidence Based Beta Yohana Not Indicated: LV Ejection Fraction > 40%
- Mineralocorticord Receptor Antagonist
Patient already on MRA: No
Heart Failure MRA Not Indicated: LV Ejection Fraction > 40%
- SGLT-2 Inhibitor
Patient already on SGLT-2 Inhibitor: No
Heart Failure SGLT-2 Inhibitor Not Indicated: LV Ejection Fraction >40%
- NYHA CHF Classification
NYHA CHF Classification Level: Class III - Symptoms w/ min exertion, interferes w/ nml daily activity
- ACC/AHA Stage
ACC/AHA Stage: Stage C: Symptomatic Heart Failure
== END 2024-05-07 16:17 | disposition home health service (06) | DRG 374 ==
LOC: 2 NORTH 19:43
PROVIDERS: Emergency Medicine; ADMITTING PHYSICIAN Internal Medicine; ATTENDING PHYSICIAN Hospitalist; EMERGENCY PHYSICIAN Emergency Medicine; FAMILY PHYSICIAN Internal Medicine; OTHER PHYSICIAN Internal Medicine Cardiovascular Disease
DX: C48.2 Malignant neoplasm of peritoneum, unspecified (principal); E43 Unspecified severe protein-calorie malnutrition; I50.33 Acute on chronic diastolic (congestive) heart failure; J98.11 Atelectasis; R18.0 Malignant ascites; E87.20 Acidosis, unspecified; J91.8 Pleural effusion in other conditions classified elsewhere; I11.0 Hypertensive heart disease with heart failure; D64.9 Anemia, unspecified; E11.65 Type 2 diabetes mellitus with hyperglycemia; E03.9 Hypothyroidism, unspecified; I70.0 Atherosclerosis of aorta; I07.1 Rheumatic tricuspid insufficiency; R54 Age-related physical debility; R09.02 Hypoxemia; R06.89 Other abnormalities of breathing; E78.5 Hyperlipidemia, unspecified; E83.42 Hypomagnesemia; E87.5 Hyperkalemia; F41.9 Anxiety disorder, unspecified; K59.00 Constipation, unspecified; K44.9 Diaphragmatic hernia without obstruction or gangrene; D72.829 Elevated white blood cell count, unspecified; R79.89 Other specified abnormal findings of blood chemistry; R00.0 Tachycardia, unspecified; R11.0 Nausea; R63.0 Anorexia; Z68.22 Body mass index [BMI] 22.0-22.9, adult; Z79.84 Long term (current) use of oral hypoglycemic drugs; Z79.890 Hormone replacement therapy; Z79.899 Other long term (current) drug therapy; Z87.891 Personal history of nicotine dependence; Z85.43 Personal history of malignant neoplasm of ovary; Z90.710 Acquired absence of both cervix and uterus; Z88.8 Allergy status to other drugs, medicaments and biological substances
CPT/HCPCS: 49083; 71275; 80048; 80053; 82962; 83735; 83880; 84443; 85025; 85027; 87502; 87811; 89051; 93005; 96361; 96374; 96375; 99285; Q9967

== ENCOUNTER → 2024-05-09 10:47 | Outpatient (REF) | payer OTHER, SELFPAY ==
[2024-05-09 11:12] VITALS: BP 123/74; BP_SYST 96
[2024-05-09 13:24] LABS: Body Fluid Mononuclear 64.9 %; Body Fluid Polymorphonuclear 35.1 %; Body Fluid WBC 395 /CUMM
[2024-05-09 13:56] LABS: Body Fluid Second Tech AMA
== END ==
LOC: RADI 10:47
PROVIDERS: ATTENDING PHYSICIAN Nurse Practitioner Family; FAMILY PHYSICIAN Internal Medicine
DX: R18.8 Other ascites (principal)
CPT/HCPCS: 49083; 89051

== ENCOUNTER 2024-05-12 13:36 | Inpatient (IN) | payer OTHER, SELFPAY ==
[2024-05-12 09:41] VITALS: BP 122/65
--- NOTE | 2024-05-12 10:38 | ED.GENMED ---
History of Present Illness
General
Chief Complaint: Breathing Problem
Source: patient, spouse and family
Exam Limitations: none
Time Seen by Provider: 05/12/24 10:01
Nursing documentation reviewed up to this point in time: agreed with
Travel History
Have you had any contact with someone who has COVID-19?: No
Do you have any symptoms of coronavirus? Fever > 100 degrees, chills, cough, shortness of breath, sore throat, loss of taste or smell, muscle aches, or headache?: No
History of Present Illness
History of Present Illness:
74-year-old female with past medical history of peritoneal carcinoma, frequent ascites presenting to the emergency department today with concerns of general unwell feeling over the past few days. She claims that her exercise tolerance has become
close to 0 and she is no significant increase swelling to her abdomen. Her last tap was 4 days ago and required 1 4 days prior to that as well. She claims that the fluid accumulation seems to be rapidly increasing. She denies specific chest pain
she claims at rest she feels somewhat better but still has ongoing lethargy. Does not history of recent admission to the hospital was discharged 5 days ago. She has had recurrent hyponatremia and hyperkalemia that is required treatment and
hospitalization in the past as well.
Past History
Past History
ED Past Medical History: Cancer (Primary peritoneal cancer.), HTN, Hypercholesterolemia, NIDDM and Hypothyroidism
ED Past Surgical History: Gynecological (Hysterectomy with debulking, tubal ligation), Tonsilectomy and Other
Social History
Tobacco: Non-smoker
Alcohol: Occasional
Drug: None
Personal:
Living: with family
Review of Systems
Review of Systems
Allergies reviewed?: Yes
All Other Systems: ROS reviewed and negative except as documented in HPI and ROS
Phy Exam
Physical Exam
Physical Exam:
GENERAL: Alert , in no apparent distress
EYE: pupils equal and reactive
NECK: Supple, no significant adenopathy.
ENT: o/p clr, mmm.
CARDIAC: Regular rate and rhythm .
LUNGS: Clear breath sounds bilaterally, no acute respiratory distress, no wheezes/rales/rhonchi
ABDOMEN: Distended abdomen no redness or warmth no specific focal tenderness
NEUROLOGICAL: Alert and oriented, no focal neuro deficits
SKIN: Warm and dry, skin intact.
MUSCULOSKELETAL: No edema, well perfused.
PSYCH: Normal and appropriate interaction.
Scores
Heart Failure Risk
Heart Failure Risk Score: Not Applicable
Course
Orders/Labs/Results
Orders:
Orders
05/12/24 10:19
Urinalysis Reflex To Culture Urgent
Lorazepam [Ativan] 0.5 mg IV NOW STA
05/12/24 10:20
Electrocardiogram (*1) Stat
Reason for Study: Other
Other Reason for Exam: chest pain
EKG- Treatment ONCE
CR Chest - 2 Views Urgent
Comment:
Reason For Exam: sob
05/12/24 10:39
Complete Blood Count/With Diff Urgent
Comprehensive Metabolic Panel Urgent
Lipase Urgent
Magnesium Urgent
NT-proBNP Urgent
Troponin I Urgent
Abnormal Lab Results
05/12/24
10:39
WBC 13.5 H 10^3/uL
(4.8-10.8)
RBC 2.88 L 10^6/uL
(4.20-5.40)
Hgb 8.6 L g/dL
(12.0-16.0)
Hct 26.4 L %
(37.0-47.0)
MCHC 32.6 L g/dL
(33.0-37.0)
RDW 17.0 H %
(11.5-14.5)
Abs Immat Gran (auto) 0.3 H 10^3/uL
(0-0.05)
Absolute Neuts (auto) 11.6 H 10^3/uL
(1.4-6.5)
Absolute Lymphs (auto) 1.0 L 10^3/uL
(1.2-3.4)
Immature Gran % 1.9 H %
(0-0.5)
Neutrophils % 86.0 H %
(42.2-75.2)
Lymphocytes % 7.3 L %
(20.5-51.1)
Sodium 133 L mmol/L
(135-145)
Potassium 5.5 H mmol/L
(3.5-5.1)
BUN 35 H mg/dl
(7-17)
Glucose 255 H mg/dl
(70-99)
Calcium 7.4 L mg/dl
(8.4-10.2)
Magnesium 1.5 L mg/dl
(1.6-2.3)
Total Bilirubin 0.1 L mg/dl
(0.2-1.3)
Alkaline Phosphatase 138 H U/L
(38-126)
Total Protein 4.2 L g/dl
(6.3-8.2)
Albumin 2.1 L g/dl
(3.5-5.0)
05/12/24 10:39
05/12/24 10:39
Vital Signs
Initial and Last Documented VS:
Initial Vital Signs
Temp Pulse Resp BP Pulse Ox
97.7 F 115 20 122/65 100
05/12/24 09:41 05/12/24 09:41 05/12/24 09:41 05/12/24 09:41 05/12/24 09:41
Last Documented Vital Signs
Temp Pulse Resp BP Pulse Ox
97.7 F 104 24 113/67 98
05/12/24 09:41 05/12/24 11:37 05/12/24 11:37 05/12/24 11:37 05/12/24 11:50
MDM/Problems Addressed
MDM/Problems Addressed:
74-year-old female presenting to the emergency department today with decreasing exercise tolerance lethargy worsening over the past few days. Was recently discharged after being treated for potential heart failure as well as significant ascites.
She had most recent paracentesis 4 days ago. Upon arrival patient has a distended abdomen. No focal redness warmth. Does not appear to be consistent with SBP. Otherwise stable at rest here heart rate improving to 100 even. Patient did have a
white count 13.5 hemoglobin at baseline of 8.6 elevated potassium level 5.5 patient will likely need additional treatment with Lokelma. No significant EKG changes related to the hyperkalemia. Patient does appear to need paracentesis at this point
interventional radiology patient admitted for further monitoring until IR treatment as well as additional treatment for hyperkalemia.
*Critical Care Note
Total Time (30-74mins, 75-104mins- exclusive of procedures): Not Applicable
ED Attending Note
-
Portions of this chart may have been created with voice recognition software.� Occasional wrong word or��sound alike� substitutions may have occurred due to the inherent limitations of voice recognition software.
Discharge Plan
Departure
Patient Disposition: Admit
Date of Disposition: 05/12/24
Time of Disposition: 12:36
Admit to: Telemetry
Admit to doctor: Ame
Presentation/result/management discussed w/ accepting MD/DO: Hospitalist
Patient with high blood pressure during this ER visit?: No
Condition: Good
Covid-19: Not Applicable
Discharge Problem:
Abdominal ascites, ZHAO (dyspnea on exertion)
Prescriptions:
No Action
nateglinide 120 MG tablet
120 mg PO MEALS
Hold Instructions: Resume on 04/02/24. Check with your primary care physician by 03/25/24 regarding if and when you should resume this medication based on your blood sugar readings.
levothyroxine 100 MCG tablet
100 mcg PO MOTUWETHFR@0600
metformin 500 mg tablet
1,000 mg PO BIDWMEAL
lorazepam 0.5 mg tablet
0.5 mg PO HS
metoclopramide HCl 5 mg tablet
5 mg PO DAILY
rosuvastatin 10 mg tablet
10 mg PO DAILY
levothyroxine 100 mcg Tablet
200 mcg PO SUSA@0600
cholecalciferol (vitamin D3) 25 mcg (1,000 unit) Tablet
25 mcg PO DAILY
ondansetron 8 mg Tablet,Disintegrating
8 mg PO Q8HPRN PRN (Reason: nausea/vomiting)
polyethylene glycol 3350 [HealthyLax] 17 gram powder in packet
17 g PO DAILYPRN PRN (Reason: constipation)
furosemide 40 mg Tablet
40 mg PO DAILY
dextromethorphan-guaifenesin [Mucinex DM] 60-1,200 mg Tablet Extended Release 12 Hr
1 tab PO Q12H
fluticasone propionate 50 mcg/actuation [place],Suspension
1 spray INTRANASAL DAILY PRN (Reason: congestion)
Referrals:
Catina Romano DO [Family Provider] -
Interventions
Interventions:
*Risk Screen - Suicide Last Done: 05/12/24 11:50
*General Assessment Last Done: 05/12/24 11:50
*Neglect/Abuse Screening Last Done: 05/12/24 11:50
ED- Fall Risk Assessment Last Done: 05/12/24 11:50
*ED COVID-19 Vaccine History Last Done: 05/12/24 11:50
GX-Tuibcw-Qvxhjchuyy Assessment Last Done: 05/12/24 11:50
ED- Cardiac Assessment Last Done: 05/12/24 11:50
ED- Pulmonary Assessment Last Done: 05/12/24 11:50
Discharge Date and Time
Print Language: LIBYAN
[2024-05-12 10:45] LABS: % Basophils 0.8 % (0-2); % Eosinophils 0.2 % (0-6); % Immature Granulocytes 1.9 % (0-0.5); % Lymphocytes 7.3 % (20.5-51.1); % Monocytes 3.8 % (1.7-9.3); Absolute Basophils 0.1 10^3/uL (0-0.2); Absolute Immature Granulocytes 0.3 10^3/uL (0-0.05); Absolute Monocytes 0.5 10^3/uL (0.1-0.6); Absolute Neutrophils 11.6 10^3/uL (1.4-6.5); Hematocrit 26.4 % (37.0-47.0); Hemoglobin 8.6 g/dL (12.0-16.0); Mean Corp Hgb Conc. 32.6 g/dL (33.0-37.0); Mean Corpuscular Hgb 29.9 pg (27.0-31.0); Mean Corpuscular Volume 91.7 fL (81.0-99.0); Mean Platelet Volume 9.7 fL (7.4-10.4); Nucleated Red Blood Cells % 0 %; Platelet Count 194 10^3/uL (130-400); Red Blood Cell Count 2.88 10^6/uL (4.20-5.40); White Blood Cell Count 13.5 10^3/uL (4.8-10.8)
[2024-05-12] MEDS: ATIVAN 0.5 MG IV (10:46)
[2024-05-12 10:57] LABS: ALT (SGPT) 22 U/L (0-35); AST (SGOT) 29 U/L (14-36); Albumin 2.1 g/dl (3.5-5.0); Alkaline Phosphatase 138 U/L (38-126); Blood Urea Nitrogen 35 mg/dl (7-17); Calcium 7.4 mg/dl (8.4-10.2); Carbon Dioxide 22 mmol/L (22-30); Chloride 106 mmol/L (98-107); Glucose 255 mg/dl (70-99); Lipase 64 U/L (23-300); Magnesium 1.5 mg/dl (1.6-2.3); Potassium 5.5 mmol/L (3.5-5.1); Sodium 133 mmol/L (135-145); Total Bilirubin 0.1 mg/dl (0.2-1.3); Total Protein 4.2 g/dl (6.3-8.2); eGFR > 60.00
[2024-05-12 11:09] LABS: NT-proBNP 369 pg/ml; Troponin I < 0.012 ng/ml
[2024-05-12 11:37] VITALS: BP 113/67
--- NOTE | 2024-05-12 12:46 | HPS.HSE ---
Family Physician
-
Family Physician: Catina Romano
Chief Complaint
-
Shortness of breath and Ascites
History of Present Illness
This is a 74 year old female with past medical history of recurrent malignant ascites and primary peritoneal carcinoma who presents to the emergency department with shortness of breath and ascites. The patient reports she started feeling short of
breath yesterday and woke up this morning with worsening ascites, prompting her to present to the emergency department. The patient reports she has been getting paracenteses twice weekly to manage her discomfort secondary to ascites. The patient
notes she is interested in a tunneled peritoneal catheter and wishes to sign on to hospice care. The patient denies chest pain, sweats, fever, and chills.
Medical History
Past Medical History
Past Medical History: Reports Other
Additional Past Medical History:
Primary Peritoneal Cancer Stage IIIC
Recurrent Malignant Ascites
Chronic HFpEF
Diabetes Mellitus, Type II
Essential Hypertension
Hyperlipidemia
Hypothyroidism
Anxiety
Past Surgical History: Reports Other
Additional Past Surgical History:
Tonsillectomy
Rectal Fistula Surgery
Hysterectomy / Bilateral Salpingo-oophorectomy/ Debulking
Social History
Tobacco: Former Smoker (Quit in 1988)
Living: With Family
Family History
Family History: Not pertinent
Allergies / Home Medications
Allergies reflects when Allergies were last updated in [facility].
Home Medications with original date entered in [facility]
Allergy/Medication List:
Allergies
Allergy/AdvReac Type Severity Reaction Status Date / Time
lisinopril Allergy cough Verified 05/12/24 09:42
Home Medications
levothyroxine 100 mcg tablet 100 mcg PO MOTUWETHFR@0600 Thyroid 11/03/21
nateglinide 120 mg tablet 120 mg PO MEALS Diabetes 11/03/21
lorazepam 0.5 mg tablet 0.5 mg PO HS Mental Health/Anxiety 03/21/24
metformin 500 mg tablet 1,000 mg PO BIDWMEAL Diabetes 03/21/24
metoclopramide HCl 5 mg tablet 5 mg PO DAILY nausea 03/21/24
rosuvastatin 10 mg tablet 10 mg PO DAILY High Cholesterol 03/21/24
cholecalciferol (vitamin D3) 25 mcg (1,000 unit) tablet 25 mcg PO DAILY Supplement 04/01/24
levothyroxine 100 mcg tablet 200 mcg PO SUSA@0600 Thyroid 04/01/24
ondansetron 8 mg disintegrating tablet 8 mg PO BID nausea 04/11/24
docusate sodium 100 mg capsule (Colace) 100 mg PO DAILYPRN PRN constipation 04/26/24
polyethylene glycol 3350 17 gram oral powder packet (HealthyLax) 17 g PO DAILYPRN PRN constipation 04/26/24
furosemide 20 mg tablet 40 mg PO DAILY 05/09/24
Review of Systems
-
A 12 point ROS was completed and negative except as noted: Yes
Constitutional: Denies Fever or Chills
Respiratory: Reports Trouble Breathing; Denies Cough
Cardiac: Denies Chest Pain or Palpitations
Abdomen/GI: Denies Abdominal Pain, Nausea or Vomiting
Physical Exam
Vital Signs
Vital Signs
Temp Pulse Resp BP Pulse Ox
97.7 F 104 24 113/67 98
05/12/24 09:41 05/12/24 11:37 05/12/24 11:37 05/12/24 11:37 05/12/24 11:50
Physical Exam
General: Comfortable, Conversant and Appears Chronically Ill
HEENT: NormoCephalic and Anicteric
Respiratory: Clear and Non Labored Respirations
Cardiac: S1/S2 and Regular Rhythm
GI: Soft, Non Tender and Distended (Positive Fluid Wave)
Rectal: Deferred by Provider
Musculoskeletal: No Clubbing, No Cyanosis and No Edema
Skin: Warm and Dry
Neuro: Awake, Alert, Oriented and Nonfocal/grossly intact
Laboratory Results
-
05/12/24 10:39
05/12/24 10:39
Laboratory Results
Total Bilirubin 0.1 mg/dl (0.2-1.3) L 05/12/24 10:39
AST 29 U/L (14-36) 05/12/24 10:39
ALT 22 U/L (0-35) 05/12/24 10:39
Alkaline Phosphatase 138 U/L (38-126) H 05/12/24 10:39
Troponin I < 0.012 ng/ml 05/12/24 10:39
Lipase 64 U/L (23-300) 05/12/24 10:39
Data Reviewed
-
Lab Data: Labs Reviewed by me
Impression/Plan
-
Recurrent Malignant Ascites secondary to Primary Peritoneal Cancer Stage IIIC
-Consult IR for paracentesis and possible tunnelled peritoneal catheter
-Consult Oncology
-Consult Case Management for Hospice Evaluation
Chronic HFpEF
-Continue Lasix
-Monitor Is&Os and Daily Weights
Diabetes Mellitus, Type II
-Stop oral diabetic medications as plan is for comfort
-Monitor sugars and continue coverage insulin
Hyperlipidemia
-Stop rosuvastatin as plan is for comfort
Hypothyroidism
-Continue Levothyroxine
Anxiety
-Continue Lorazepam
DVT proph: SCDs
Code Status: DNR
--- NOTE | 2024-05-12 13:39 | W.PN.UPDATE ---
Update Note
Progress Note Update
Patient seen and examined discussed with MARTINEZ Ortiz I agree with her note.
Gen-AAOx3, NAD
HEENT-NC, AT, anicteric, clear oral mm
Neck-supple
CV-reg, no M, +S1/S2
Lungs-clear B/L
Abd-soft, NT, ND
Ext-no edema
Musculoskeletal-no cyanosis, clubbing
Skin-warm and dry
Neuro-grossly non-focal
Psych-calm, cooperative
Recurrent symptomatic malignant ascites -patient feels ready for hospice. She is requesting a paracentesis and catheter placement and wants to go home on hospice with peritoneal catheter.
Consult IR.
Primary peritoneal carcinomatosis -with recurrent malignant ascites. As above. Consult oncology, Dr. Lyons, to discuss goals of care with patient.
Chronic heart failure preserved EF -stable. Chest x-ray read as clear.
Chronic normocytic anemia - stable and likely due to malignancy.
Hyponatremia, chronic
Hyperkalemia
Hypomagnesemia
DM2 with hyperglycemia -goal will be to avoid hypoglycemia in light of plans for hospice.
Hypothyroidism -on levothyroxine.
Hyperlipidemia
Anxiety disorder
DNR
Discussion of end-of-life care constitutes high risk encounter.
[2024-05-12] MEDS: LOKELMA 10 GRAM PO (14:47)
[2024-05-12 16:13] VITALS: BP 114/72; BMI 20.9
[2024-05-12 16:46] LABS: Glucose - Point of Care 224 mg/dl (70-99)
[2024-05-12] MEDS: ZOFRAN 4 MG IV (16:46)
[2024-05-12] MEDS: NOVOLOG FLEXPEN-LOW RESISTANCE 2 UNITS SC (17:36)
[2024-05-12] MEDS: ATIVAN 0.5 MG PO (21:24)
[2024-05-12 21:35] LABS: Glucose - Point of Care 205 mg/dl (70-99)
[2024-05-12 23:25] VITALS: BP 95/63
[2024-05-13] MEDS: SYNTHROID 100 MCG PO (05:40)
[2024-05-13] MEDS: ZOFRAN 4 MG IV ×2 (05:42→17:37)
[2024-05-13 05:45] VITALS: BMI 21.0
[2024-05-13 07:00] VITALS: BP 106/68
[2024-05-13 07:48] LABS: Glucose - Point of Care 192 mg/dl (70-99)
[2024-05-13 08:11] LABS: Hematocrit 26.1 % (37.0-47.0); Hemoglobin 8.3 g/dL (12.0-16.0); Mean Corp Hgb Conc. 31.8 g/dL (33.0-37.0); Mean Corpuscular Hgb 29.1 pg (27.0-31.0); Mean Corpuscular Volume 91.6 fL (81.0-99.0); Mean Platelet Volume 9.9 fL (7.4-10.4); Platelet Count 202 10^3/uL (130-400); Red Blood Cell Count 2.85 10^6/uL (4.20-5.40); Red Cell Dist. Width 17.1 % (11.5-14.5)
[2024-05-13] MEDS: NOVOLOG FLEXPEN-LOW RESISTANCE 1 UNITS SC ×2 (08:43→17:14)
[2024-05-13] MEDS: LASIX 40 MG PO (08:43)
[2024-05-13 08:54] LABS: Blood Urea Nitrogen 36 mg/dl (7-17); Calcium 7.8 mg/dl (8.4-10.2); Carbon Dioxide 22 mmol/L (22-30); Chloride 106 mmol/L (98-107); Estimated Creatinine Clearance 45 ml/min; Glucose 160 mg/dl (70-99); Magnesium 1.7 mg/dl (1.6-2.3); Potassium 5.3 mmol/L (3.5-5.1); Sodium 131 mmol/L (135-145); eGFR > 60.00
--- NOTE | 2024-05-13 09:17 | CON.ONC ---
Impression
Impression
Primary peritoneal carcinoma
Malignant ascites
Plan
Plan
Pt with disease progression, requiring frequent paracentesis.
Agree with hospice.
Currently comfortable other than abdominal discomfort from ascites. Agree with abd drainage catheter and home hospice.
Thank you for consult, please call if further Q's.
Patient History
History of Present Illness
74-year-old female with red devil refractory primary peritoneal cancer, pt of Dr. Lyons, who started DOXIL chemotherapy on March 27, hospitalized April 10 and again earlier this month with hyperkalemia. She has struggled with recurrent ascites, needing
frequent paracenteses. She has been approved for an indwelling catheter for outpatient drainage, though this has not yet been scheduled. She now presents to the emergency department with shortness of breath and ascites. The patient reports she
started feeling short of breath yesterday and woke up this morning with worsening ascites, prompting her to present to the emergency department. The patient reports she has been getting paracenteses twice weekly to manage her discomfort secondary to
ascites. The patient notes she is still interested in a tunneled peritoneal catheter and wishes to sign on to hospice care. We have been consulted to discuss goals of care.
Past-Medical/Surgical History
Past medical/surgical history: Malignant neoplasm of peritoneum as per HPI, she underwent bowel resection and CHAVEZ/BSO in February 2022. She has a BRCA2 mutation. Prior surgery includes tonsillectomy, adenoidectomy and tubal ligation.
Social history: She is , drinks alcohol socially, former smoker
Family history: Her mother had ovarian cancer and father had prostate cancer
Patient Medication
�Medication �Instructions �Recorded �Confirmed �Last Taken �Type
levothyroxine 100 mcg tablet 100 mcg PO MOTUWETHFR@0600 Thyroid 11/03/21 05/12/24 05/10/24 History
nateglinide 120 mg tablet 120 mg PO MEALS Diabetes 11/03/21 05/12/24 05/11/24 History
lorazepam 0.5 mg tablet 0.5 mg PO Mental Health/Anxiety 03/21/24 05/12/24 05/11/24 History
metformin 500 mg tablet 1,000 mg PO BIDWMEAL Diabetes 03/21/24 05/12/24 05/12/24 History
metoclopramide HCl 5 mg tablet 5 mg PO DAILY nausea 03/21/24 05/12/24 05/12/24 History
rosuvastatin 10 mg tablet 10 mg PO DAILY High Cholesterol 03/21/24 05/12/24 05/12/24 History
cholecalciferol (vitamin D3) 25 25 mcg PO DAILY Supplement 04/01/24 05/12/24 05/12/24 History
mcg (1,000 unit) tablet
levothyroxine 100 mcg tablet 200 mcg PO SUSA@0600 Thyroid 04/01/24 05/12/24 05/12/24 History
ondansetron 8 mg disintegrating 8 mg PO Q8HPRN PRN nausea/vomiting 04/11/24 05/12/24 05/11/24 History
tablet
polyethylene glycol 3350 17 gram 17 g PO DAILYPRN PRN constipation 04/26/24 05/12/24 Unknown History
oral powder packet (HealthyLax)
dextromethorphan-guaifenesin ER 60 1 tab PO Q12H Congestion 05/12/24 05/12/24 05/11/24 History
mg-1,200 mg tab,extend
release,12hr (Mucinex DM)
fluticasone propionate 50 1 spray intranasal DAILY PRN 05/12/24 05/12/24 2 Days Ago History
mcg/actuation nasal congestion ~05/10/24
spray,suspension
furosemide 40 mg tablet 40 mg PO DAILY Fluid 05/12/24 05/12/24 05/12/24 History
Retention/Swelling
Active Medications
Generic Name Dose Route Start Last Admin
Trade Name Freq PRN Reason Stop Dose Admin
Acetaminophen 650 mg 05/12/24 16:28
Acetaminophen 325 Mg Tablet PO 06/09/24 16:27
Q4HPRN PRN
mild pain/ fever>100.5F
Dextrose 12.5 grams 05/12/24 16:28
Dextrose 50% (0.5 Grams/Ml) 50 Ml Syringe IV 06/09/24 16:27
[id number] PRN
hypoglycemia
Protocol
Furosemide 40 mg 05/13/24 08:00 05/13/24 08:43
Furosemide 40 Mg Tablet PO 06/10/24 07:59 40 mg
DAILY MARIA INES Administration
Glucagon 1 mg 05/12/24 16:28
Glucagon 1 Mg Vial IM 06/09/24 16:27
PRN PRN
hypoglycemia
Protocol
Heparin Sodium (Porcine) 500 unit 05/12/24 16:49 05/13/24 05:35
Heparin Flush Pf (100 Unit/Ml) 5 Ml Syringe IV 06/09/24 16:48 500 unit
PRN PRN Administration
PORT ACCESS
Insulin Aspart 0 units 05/12/24 16:30 05/13/24 08:43
Insulin Aspart Low Resistance 300 Units/3 Ml Pen.Injctr SC 06/09/24 16:29 1 units
AC MARIA INES Administration
Protocol
Levothyroxine Sodium 100 mcg 05/13/24 06:00 05/13/24 05:40
Levothyroxine 100 Mcg Tablet PO 06/10/24 05:59 100 mcg
MOTUWETHFR@0600 MARIA INES Administration
Levothyroxine Sodium 200 mcg 05/18/24 06:00
Levothyroxine 100 Mcg Tablet PO 06/15/24 05:59
SUSA@0600 MARIA INES
Lorazepam 0.5 mg 05/12/24 22:00 05/12/24 21:24
Lorazepam 0.5 Mg Tablet PO 06/09/24 21:59 0.5 mg
HS MARIA INES Administration
Ondansetron HCl 4 mg 05/12/24 16:28 05/13/24 05:42
Ondansetron 4 Mg/2 Ml Vial IV 06/09/24 16:27 4 mg
Q6HPRN PRN Administration
NAUSEA/VOMITING
Polyethylene Glycol 17 grams 05/12/24 16:28
Polyethylene Glycol Powder 17 Grams Packet PO 06/09/24 16:27
DAILYPRN PRN
constipation
Sodium Chloride 0 flush 05/12/24 17:00
Sodium Chloride 0.9% (Flush) Syringe IV 06/09/24 16:59
PER PROTOCOL MARIA INES
Review of Systems
-
History Source: Patient and Records
All Other Systems: Reviewed and Negative
Constitutional: Reports Weight Loss and No Appetite
EENT: Reports No Symptoms
Respiratory: Reports No Symptoms
Cardiac: Reports No Symptoms
GI: Reports Abdominal Pain and Bloated
Breast: Reports No Symptoms
: Reports No Symptoms
Musculoskeletal: Reports No Symptoms
Skin: Reports No Symptoms
Neuro: Reports No Symptoms
Endocrine: Reports No Symptoms
Hematologic/Lymphatic: Reports No Symptoms
Allergy / Immunology: Reports No Symptoms
Psych: Reports No Symptoms
Physical Exam
-
General: No Apparent Distress and Cachetic
HEENT: Moist Mucous Membranes; Negative Jaundice
Cardiology: Normal Sinus Rhythm, S1 and S2
Pulmonary: Clear; Negative Wheezes
GI: Soft and Distended
Genito-Urinary: Negative Costovertebral Angle Tenderness
Musculoskeletal: No Clubbing, No Cyanosis and No Edema
Extremities: No C/C/E
Neurology: Non Focal
Skin: Warm and Dry
Hematologic / Lymphatic: No Lymphadenopathy
Psych: Calm and Intact Judgement/Insight
Labs
Lab Results
WBC 11.0 10^3/uL (4.8-10.8) H 05/13/24 07:42
RBC 2.85 10^6/uL (4.20-5.40) L 05/13/24 07:42
Hgb 8.3 g/dL (12.0-16.0) L 05/13/24 07:42
Hct 26.1 % (37.0-47.0) L 05/13/24 07:42
MCV 91.6 fL (81.0-99.0) 05/13/24 07:42
MCH 29.1 pg (27.0-31.0) 05/13/24 07:42
MCHC 31.8 g/dL (33.0-37.0) L 05/13/24 07:42
RDW 17.1 % (11.5-14.5) H 05/13/24 07:42
Plt Count 202 10^3/uL (130-400) 05/13/24 07:42
MPV 9.9 fL (7.4-10.4) 05/13/24 07:42
Abs Immat Gran (auto) 0.3 10^3/uL (0-0.05) H 05/12/24 10:39
Absolute Neuts (auto) 11.6 10^3/uL (1.4-6.5) H 05/12/24 10:39
Absolute Lymphs (auto) 1.0 10^3/uL (1.2-3.4) L 05/12/24 10:39
Absolute Monos (auto) 0.5 10^3/uL (0.1-0.6) 05/12/24 10:39
Absolute Eos (auto) 0.0 10^3/uL (0-0.7) 05/12/24 10:39
Absolute Basos (auto) 0.1 10^3/uL (0-0.2) 05/12/24 10:39
Immature Gran % 1.9 % (0-0.5) H 05/12/24 10:39
Neutrophils % 86.0 % (42.2-75.2) H 05/12/24 10:39
Lymphocytes % 7.3 % (20.5-51.1) L 05/12/24 10:39
Monocytes % 3.8 % (1.7-9.3) 05/12/24 10:39
Eosinophils % 0.2 % (0-6) 05/12/24 10:39
Basophils % 0.8 % (0-2) 05/12/24 10:39
Creatinine 0.8 mg/dL (0.6-1.0) 05/13/24 07:42
Vital Signs
Vital Signs
Temp Pulse Resp BP Pulse Ox
98.2 F 101 16 106/68 97
05/13/24 07:00 05/13/24 07:00 05/13/24 07:00 05/13/24 07:00 05/13/24 07:00
--- NOTE | 2024-05-13 10:08 | CM ---
hospice manager reviewed patient's chart and met with patient and daughter Chapis at bedside, patient reports that she lives with her spouse in a 3rd floor condo that is elevator accessible, patient is independent with adl's and ambulation, patient uses
w/c for community distances. Patient is current with [facility]. Patient has a prescription plan and uses [facility] pharmacy.
PCP: Dr. Catina Lopes-Spine
Plan; hospice manager received a consult for hospice, lead case manager discussed hospice with patient and patient is agreeable to [facility], referral sent to [facility], patient may also have ASEPT placed.
--- NOTE | 2024-05-13 11:05 | HOSPNOTE ---
Addendum entered by Alexandria Radford RN 05/13/24 15:00:
Spoke with family and patient at length. The plan is for patient to have a pleurex placed tomorrow in IR and equipment will be ordered tomorrow and the patient will be discharged on Tuesday 05/15 home with family driving patient. Once the patient
is home the patient will be placed on hospice services with hospice. Attending and oncologist and case management aware of plan and in agreement.
Original Note:
Referral received and will follow up.
[2024-05-13 11:30] LABS: Glucose - Point of Care 144 mg/dl (70-99)
--- NOTE | 2024-05-13 12:07 | W.PN.UPDATE ---
Update Note
Progress Note Update
Agree with hospice.
Only complaint is discomfort from ascites.
Full consult to follow.
[2024-05-13] MEDS: NOVOLOG FLEXPEN-LOW RESISTANCE SC (12:12)
--- NOTE | 2024-05-13 14:07 | W.PN.HOSP.TC ---
Today's Communication/Plan
-
ASEPT tomorrow
home hospice being arranged
Assessment / Plan
Assessment / Plan
Assessment:
Recurrent symptomatic malignant ascites
- s/p 05/09
- for ASEPT placement, tomorrow
Primary peritoneal carcinomatosis
- with recurrent malignant ascites. As above.
- hospice consulted
Chronic heart failure preserved EF
- stable. Chest x-ray read as clear.
Chronic normocytic anemia
- stable and likely due to malignancy.
Hyponatremia, chronic
Hyperkalemia
Hypomagnesemia
DM2 with hyperglycemia
- goal will be to avoid hypoglycemia in light of plans for hospice.
Hypothyroidism
- on levothyroxine.
Hyperlipidemia
Anxiety disorder
DNR
Anticipated Discharge: Within 24 hours
Subjective/Interval History
-
Date of Service: May 13, 2024
denies any new complaints, reports chronic discomfort
has confirmed her choice of hospice care after ASEPT cath placed
Objective Data
-
Labs:
Laboratory Results
05/13/24
07:42
WBC 11.0 H
Hgb 8.3 L
Hct 26.1 L
Plt Count 202
Sodium 131 L
Potassium 5.3 H
Chloride 106
Carbon Dioxide 22
BUN 36 H
Creatinine 0.8
Glucose 160 H
Calcium 7.8 L
Vital Signs:
Vital Signs
Temp Pulse Resp BP Pulse Ox
98.2 F 101 16 106/68 97
05/13/24 07:00 05/13/24 07:00 05/13/24 07:00 05/13/24 07:00 05/13/24 07:00
I&O
05/12/24 05/13/24 05/14/24
06:59 06:59 06:59
Intake Total 960 / 960
Output Total 50 / 50
Balance 910 / 910
Physical Exam
-
General: Appears Chronically Ill
HEENT: Normocephalic and Atraumatic
Respiratory: Negative Wheezes
Cardiac: Regular Rhythm and S1/S2
GI: Tender and Distended
Genito-urinary: No Costovertebral Tender
Neuro: AO x 3
Psych: Calm
Data Reviewed
-
Total Time Spent with Patient (in minutes): 42
Labs: Labs Reviewed by me
[2024-05-13] MEDS: TYLENOL 650 MG PO (15:27)
--- NOTE | 2024-05-13 15:37 | VNURNOTE ---
Patient is current with [facility] since 05/08 w/ SN[facility] QUALITY TECHNICIAN. Liaison discussed plan earlier today with CM for patient to sign onto Hospice.
[2024-05-13 15:40] VITALS: BP 102/63
[2024-05-13 16:49] LABS: Glucose - Point of Care 175 mg/dl (70-99)
[2024-05-13] MEDS: FLUSH (NSS) 1 FLUSH IV (17:40)
[2024-05-13] MEDS: ATIVAN 0.5 MG PO (21:29)
[2024-05-13 21:35] LABS: Glucose - Point of Care 247 mg/dl (70-99)
[2024-05-13 23:06] VITALS: BP 102/68
[2024-05-14] VITALS (11 sets, daily range): BP systolic 94–121; BP diastolic 51–79; BMI 21.1
[2024-05-14] MEDS: SYNTHROID PO (05:29)
[2024-05-14 05:49] LABS: Glucose - Point of Care 170 mg/dl (70-99)
[2024-05-14] MEDS: ZOFRAN 4 MG IV (07:09)
[2024-05-14] MEDS: NOVOLOG FLEXPEN-LOW RESISTANCE 1 UNITS SC ×3 (09:07→16:53)
[2024-05-14] MEDS: LASIX 40 MG PO (09:08)
--- NOTE | 2024-05-14 09:48 | CM ---
manager creative services reviewed patient's chart and plan is for ASEPT cath placement possibly today and then home tomorrow on [facility], per [facility] they will order a hospital bed for patient. Family to transport patient to home.
Plan; Home with [facility] and possibly a new ASEPT Cath.
[2024-05-14] MEDS: MORPHINE SULFATE 1 MG IV (11:46)
[2024-05-14 11:49] LABS: Glucose - Point of Care 181 mg/dl (70-99)
--- NOTE | 2024-05-14 12:45 | W.PN.HOSP.TC ---
Today's Communication/Plan
-
ASEPT placement today
likely home on hospice tomorrow
Assessment / Plan
Assessment / Plan
Assessment:
Recurrent symptomatic malignant ascites
- s/p 05/09
- for ASEPT placement today
Primary peritoneal carcinomatosis
- with recurrent malignant ascites. As above.
- hospice consulted for home arrangements
Chronic heart failure preserved EF
- stable. Chest x-ray read as clear.
Chronic normocytic anemia
- stable and likely due to malignancy.
Hyponatremia, chronic
Hyperkalemia
Hypomagnesemia
DM2 with hyperglycemia
- goal will be to avoid hypoglycemia in light of plans for hospice.
Hypothyroidism
- on levothyroxine.
Hyperlipidemia
Anxiety disorder
DNR
Anticipated Discharge: Within 24 hours
Subjective/Interval History
-
Date of Service: May 14, 2024
reports some pain in abdomen today
for ASEPT Placement this afternoon
Objective Data
-
Vital Signs:
Vital Signs
Temp Pulse Resp BP Pulse Ox
97.4 F 101 14 113/67 98
05/14/24 07:33 05/14/24 07:33 05/14/24 07:33 05/14/24 07:33 05/14/24 07:33
I&O
05/13/24 05/14/24 05/15/24
06:59 06:59 06:59
Intake Total 960 / 960 870 / 870
Output Total 50 / 50
Balance 910 / 910 870 / 870
Physical Exam
-
General: Pain and Appears Chronically Ill
HEENT: Normocephalic and Atraumatic
Respiratory: Negative Wheezes
Cardiac: Regular Rhythm and S1/S2
GI: Tender and Distended
Musculoskeletal: No Edema
Neuro: AO x 3
Data Reviewed
-
Total Time Spent with Patient (in minutes): 41
Labs: Labs Reviewed by me
[2024-05-14 16:52] LABS: Glucose - Point of Care 173 mg/dl (70-99)
[2024-05-14] MEDS: LOKELMA 5 GRAM PO (16:52)
--- NOTE | 2024-05-14 18:21 | PTCARENOTE ---
Patient returned from IR with dressing intact to right mid abdomen, right lower abdomen has Tegaderm with pleurax cath coiled underneath. Dressing clean dry intact. Tolerating regular diet. Denies any pain at present.
[2024-05-14 21:16] LABS: Glucose - Point of Care 285 mg/dl (70-99)
[2024-05-14] MEDS: ATIVAN 0.5 MG PO (21:48)
[2024-05-15] MEDS: SYNTHROID 100 MCG PO (05:26)
[2024-05-15 06:00] VITALS: BMI 19.2
--- NOTE | 2024-05-15 06:27 | DOWNTIME ---
There was a [employer] Client Consumer Loan Manager Downtime on 05/15/2024 from 0100 to 05/15/2024 at 0337. Downtime documentation of patient's care, including medication administrations, has been reconciled in the electronic record per guidelines. Refer to the
patient's paper chart under the miscellaneous tab to see printed paper medication records and downtime forms.
[2024-05-15 07:43] LABS: Glucose - Point of Care 191 mg/dl (70-99)
[2024-05-15] MEDS: LASIX 40 MG PO (07:48)
[2024-05-15] MEDS: NOVOLOG FLEXPEN-LOW RESISTANCE 1 UNITS SC (07:48)
[2024-05-15] MEDS: ZOFRAN 4 MG IV (07:48)
[2024-05-15 08:06] VITALS: BP 92/84
--- NOTE | 2024-05-15 08:44 | W.PN.HOSP.TC ---
Today's Communication/Plan
-
dc to home hospice this AM
Assessment / Plan
Assessment / Plan
Assessment:
Recurrent symptomatic malignant ascites
- s/p 05/09
- s/p ASEPT placement 05/14; teaching provided by IR team to patient/family
Primary peritoneal carcinomatosis
- with recurrent malignant ascites. As above.
- home hospice discharge today
Chronic heart failure preserved EF
- stable. Chest x-ray read as clear.
Chronic normocytic anemia
- stable and likely due to malignancy.
Hyponatremia, chronic
Hyperkalemia
Hypomagnesemia
DM2 with hyperglycemia
- goal will be to avoid hypoglycemia in light of plans for hospice.
Hypothyroidism
- on levothyroxine.
Hyperlipidemia
Anxiety disorder
DNR
More than 30 minutes spent in discharge including
Final examination of the patient
Summarizing hospital stay
Instructions for continuing care to all relevant caregivers
Preparation of discharge records, prescriptions, and referral forms
Total time spent (in minutes):42
Anticipated Discharge: Today
Subjective/Interval History
-
Date of Service: May 15, 2024
s/p ASEPT placement, she is comfortable with catheter management
pain better controlled
Objective Data
-
Vital Signs:
Vital Signs
Temp Pulse Resp BP Pulse Ox
98.1 F 88 16 92/84 98
05/15/24 08:06 05/15/24 08:06 05/15/24 08:06 05/15/24 08:06 05/15/24 08:06
I&O
05/14/24 05/15/24 05/16/24
06:59 06:59 06:59
Intake Total 870 / 870
Balance 870 / 870
Physical Exam
-
General: No Apparent Distress
HEENT: Normocephalic and Atraumatic
Respiratory: Negative Wheezes
Cardiac: Regular Rhythm and S1/S2
GI: Soft
Genito-urinary: No Costovertebral Tender
Musculoskeletal: No Edema
Neuro: AO x 3
Hematologic / Lymphatic: No Lymphadenopathy
Psych: Calm
Data Reviewed
-
Total Time Spent with Patient (in minutes): 42
Labs: Labs Reviewed by me
--- NOTE | 2024-05-15 08:48 | W.DS.TRANS ---
DC Summary - [employer]
-
Discharge Instructions:
Discharge Diagnosis/Procedures malignant ascites s/p ASEPT placement,
peritoneal carcinomatosis
Diet Regular,As tolerated
Activity As tolerated
Bathing Restrictions None
Other Services Hospice
Instructions:
Stand-Alone Forms:
Changes to Home Medications: Yes
Discharge Medications:
DC Medications w/original date entered in [employer]
levothyroxine 100 mcg tablet 100 mcg PO MOTUWETHFR@0600 Thyroid 11/03/21
nateglinide 120 mg tablet 120 mg PO MEALS Diabetes 11/03/21
lorazepam 0.5 mg tablet 0.5 mg PO HS Mental Health/Anxiety 03/21/24
metformin 500 mg tablet 1,000 mg PO BIDWMEAL Diabetes 03/21/24
metoclopramide HCl 5 mg tablet 5 mg PO DAILY nausea 03/21/24
cholecalciferol (vitamin D3) 25 mcg (1,000 unit) tablet 25 mcg PO DAILY Supplement 04/01/24
levothyroxine 100 mcg tablet 200 mcg PO SUSA@0600 Thyroid 04/01/24
ondansetron 8 mg disintegrating tablet 8 mg PO Q8HPRN PRN nausea/vomiting 04/11/24
polyethylene glycol 3350 17 gram oral powder packet (HealthyLax) 17 g PO DAILYPRN PRN constipation 04/26/24
dextromethorphan-guaifenesin ER 60 mg-1,200 mg tab,extend release,12hr (Mucinex DM) 1 tab PO Q12H Congestion 05/12/24
fluticasone propionate 50 mcg/actuation nasal spray,suspension 1 spray intranasal DAILY PRN congestion 05/12/24
furosemide 40 mg tablet 40 mg PO DAILY Fluid Retention/Swelling 05/12/24
Home Medication Changes
statin stopped with hospice transition
Pending Results: No
Total time spent discharging patient (in min): 42
--- NOTE | 2024-05-15 08:58 | W.PN.ONC2 ---
Today's Communication / Plan
-
Home hospice. Will sign off.
Impression
Impression
Primary peritoneal carcinoma
Malignant ascites
Plan
Plan
Pt with disease progression, requiring frequent paracentesis.
S/P ASCEPT cath for drainage.
Agree with hospice.
Currently comfortable.
Subjective/Objective
Chief Complaint
ACS Heme Onc
Subjective
No pain. S/P ASCEPT cath. Wants hospice.
Vital Signs:
Vital Signs
Temp Pulse Resp BP Pulse Ox
98.1 F 88 16 92/84 98
05/15/24 08:06 05/15/24 08:06 05/15/24 08:06 05/15/24 08:06 05/15/24 08:06
Lab Results:
Laboratory Data
WBC 11.0 10^3/uL (4.8-10.8) H 05/13/24 07:42
Hgb 8.3 g/dL (12.0-16.0) L 05/13/24 07:42
Plt Count 202 10^3/uL (130-400) 05/13/24 07:42
eGFR > 60.00 05/13/24 07:42
Physical Exam
HEENT: No Moist Mucous Membranes
Cardiology: S1 and S2
Pulmonary: Clear
GI: Soft and Distended
Extremities: No C/C/E
--- NOTE | 2024-05-15 09:19 | CM ---
campground manager met with patient this am and spoke with physician and patient has been cleared for discharge today, ASEPT placed, supplies provided, plan is to home with [facility], per patient and family patient has a hospital bed. Family to
transport to home.
Plan; Home today with [facility].
--- NOTE | 2024-05-15 09:50 | PTCARENOTE ---
Patient had some nausea this am, rec'd IV Zofran with some relief. Refused offered pain meds. Right SQ Port deaccessed by VAT. Discharge instructions reviewed with patient and daughter- both verbalized understanding and denied any questions.
Await transport for d/c.
== END 2024-05-15 11:29 | disposition hospice, home (50) | DRG 375 ==
LOC: 4 WEST ACU 13:36
PROVIDERS: Physician Assistant; Physician Assistant Medical; Radiology Vascular & Interventional Radiology; ADMITTING PHYSICIAN Hospitalist; ATTENDING PHYSICIAN Internal Medicine; EMERGENCY PHYSICIAN Emergency Medicine; FAMILY PHYSICIAN Internal Medicine; OTHER PHYSICIAN Internal Medicine Hematology & Oncology
PROC: 0W9G30Z Drainage of Peritoneal Cavity with Drainage Device, Percutaneous Approach (ICD-10-PCS; 2024-05-14)
DX: C48.2 Malignant neoplasm of peritoneum, unspecified (principal); E87.1 Hypo-osmolality and hyponatremia; I50.32 Chronic diastolic (congestive) heart failure; R18.0 Malignant ascites; I11.0 Hypertensive heart disease with heart failure; E03.9 Hypothyroidism, unspecified; E11.9 Type 2 diabetes mellitus without complications; Z51.5 Encounter for palliative care; Z66 Do not resuscitate; E78.5 Hyperlipidemia, unspecified; F41.9 Anxiety disorder, unspecified; E87.5 Hyperkalemia; E83.42 Hypomagnesemia; Z79.84 Long term (current) use of oral hypoglycemic drugs; Z79.890 Hormone replacement therapy; Z79.899 Other long term (current) drug therapy; Z87.891 Personal history of nicotine dependence; Z90.710 Acquired absence of both cervix and uterus
CPT/HCPCS: 49418; 71046; 80048; 80053; 82962; 83690; 83735; 83880; 84484; 85025; 85027; 93005; 96374; 99152; 99153; 99285; C1729